=== PATIENT | female | born 1940 | race Caucasian/White ===

== ENCOUNTER 2023-09-21 16:52 | Emergency (ER) | payer OTHER, SELFPAY ==
[2023-09-21 16:53] VITALS: BP 144/77
[2023-09-21 18:04] VITALS: BMI 23.5
[2023-09-21 18:09] VITALS: BP 136/98
[2023-09-21 18:37] LABS: NT-proBNP 1950 pg/ml
[2023-09-21 18:52] LABS: ALT (SGPT) 13 U/L (0-35); AST (SGOT) 25 U/L (14-36); Albumin 3.5 g/dl (3.5-5.0); Alkaline Phosphatase 71 U/L (38-126); Blood Urea Nitrogen 21 mg/dl (7-17); Calcium 9.1 mg/dl (8.4-10.2); Carbon Dioxide 24 mmol/L (22-30); Chloride 111 mmol/L (98-107); Estimated Creatinine Clearance 44 ml/min; Glucose 98 mg/dl (70-99); Potassium 4.1 mmol/L (3.5-5.1); Sodium 138 mmol/L (135-145); Total Bilirubin 0.4 mg/dl (0.2-1.3); Total Protein 5.5 g/dl (6.3-8.2); eGFR > 60.00
[2023-09-21 18:53] LABS: % Basophils 0.7 % (0-2); % Eosinophils 4.1 % (0-6); % Immature Granulocytes 0.3 % (0-0.5); % Lymphocytes 16.5 % (20.5-51.1); % Monocytes 13.6 % (1.7-9.3); % Neutrophils 64.8 % (42.2-75.2); Absolute Eosinophils 0.3 10^3/uL (0-0.7); Absolute Monocytes 0.8 10^3/uL (0.1-0.6); Hematocrit 31.9 % (37.0-47.0); Hemoglobin 9.9 g/dL (12.0-16.0); Mean Corpuscular Hgb 27.5 pg (27.0-31.0); Mean Corpuscular Volume 88.6 fL (81.0-99.0); Mean Platelet Volume 10.6 fL (7.4-10.4); Nucleated Red Blood Cells % 0 %; Platelet Count 160 10^3/uL (130-400); Red Cell Dist. Width 15.7 % (11.5-14.5); White Blood Cell Count 6.1 10^3/uL (4.8-10.8)
--- NOTE | 2023-09-21 20:39 | ED.GENMED ---
History of Present Illness
General
Chief Complaint: Nose Bleed
Source: patient
Exam Limitations: none
Time Seen by Provider: 09/21/23 18:03
Nursing documentation reviewed up to this point in time: agreed with
Travel History
Have you had any contact with someone who has COVID-19?: No
Do you have any symptoms of coronavirus? Fever > 100 degrees, chills, cough, shortness of breath, sore throat, loss of taste or smell, muscle aches, or headache?: No
History of Present Illness
History of Present Illness:
Patient to ED with complaint of spontaneous nose bleed. States she sat on toilet and bleeding started. On xarelto. Brought to ED by daughter for eval.
Past History
Past History
ED Past Medical History: Arrthythmia, GERD and HTN
Review of Systems
Review of Systems
Allergies reviewed?: Yes
All Other Systems: ROS reviewed and negative except as documented in HPI and ROS
Constitutional: Reports no symptoms
EENT: Reports other (right posterior nosebleed)
Respiratory: Reports no symptoms
Cardiac: Reports no symptoms
ABD/GI: Reports no symptoms
: Reports no symptoms
Musculoskeletal: Reports edema (BLE)
Skin: Reports no symptoms
Neurological: Reports no symptoms
Psychiatric: Reports no symptoms
Phy Exam
General Physical Exam
General Presentation: well appearing and no apparent distress
General age: appears stated age
General Skin: warm and dry
General Habitus: normal
ENT Exam
ENT Exam: EOMI, pharynx normal, neck supple, normocephalic, swallowing well and other (Right posterior nose bleed. Posterior packing applied. No further bleeding. WIll follow up with ENT this week.)
Cardiovascular Exam
Cardiovascular Exam: regular rate/rhythm
Pulmonary Exam
Pulmonary Exam: lungs clear and no respiratory distress
Musculoskeletal Exam
Musculoskeletal Exam: full ROM and edema (+2edema BLE)
Skin Exam
Skin Exam: normal color, warm/dry and no rash
Psychiatric Exam
Psychiatric Exam: normal mood/affect
Course
Orders/Labs/Results
Orders:
Orders
09/21/23 18:10
US Periph Venous LOWER Ext Jeff Urgent
Comment:
Reason For Exam: swelling, erythema
09/21/23 18:12
Complete Blood Count/With Diff Urgent
Comprehensive Metabolic Panel Urgent
NT-proBNP Urgent
Abnormal Lab Results
09/21/23
18:12
RBC 3.60 L 10^6/uL
(4.20-5.40)
Hgb 9.9 L g/dL
(12.0-16.0)
Hct 31.9 L %
(37.0-47.0)
MCHC 31.0 L g/dL
(33.0-37.0)
RDW 15.7 H %
(11.5-14.5)
MPV 10.6 H fL
(7.4-10.4)
Absolute Lymphs (auto) 1.0 L 10^3/uL
(1.2-3.4)
Absolute Monos (auto) 0.8 H 10^3/uL
(0.1-0.6)
Lymphocytes % 16.5 L %
(20.5-51.1)
Monocytes % 13.6 H %
(1.7-9.3)
Chloride 111 H mmol/L
(98-107)
BUN 21 H mg/dl
(7-17)
Total Protein 5.5 L g/dl
(6.3-8.2)
09/21/23 18:12
09/21/23 18:12
Vital Signs
Initial and Last Documented VS:
Initial Vital Signs
Temp Pulse Resp BP Pulse Ox
98.1 F 96 18 144/77 96
09/21/23 16:53 09/21/23 16:53 09/21/23 16:53 09/21/23 16:53 09/21/23 16:53
Last Documented Vital Signs
Temp Pulse Resp BP Pulse Ox
98.1 F 107 22 136/98 97
09/21/23 16:53 09/21/23 21:00 09/21/23 21:00 09/21/23 18:09 09/21/23 21:00
*Critical Care Note
Total Time (30-74mins, 75-104mins- exclusive of procedures): Not Applicable
Update Note
Update Note:
Patient with +2 edema BLE. Daughter states she spoke with patients die maker who recommended Lasix. Patient did not want to start. Agreeable now to 20mg trial. WIll take in AM. FOllow closely with her die maker. No SOB or cough.
ED Attending Note
-
Portions of this chart may have been created with voice recognition software.� Occasional wrong word or��sound alike� substitutions may have occurred due to the inherent limitations of voice recognition software.
Discharge Plan
Departure
Patient Disposition: Home (Routine Discharge)
Date of Disposition: 09/21/23
Time of Disposition: 20:39
Patient with high blood pressure during this ER visit?: No
Condition: Good
Covid-19: Not Applicable
Discharge Problem:
Epistaxis
Instructions: Swelling, Nosebleeds (DC)
Prescriptions:
New
furosemide [Lasix] 20 mg tablet
20 mg PO DAILY PRN (Reason: edema) Qty: 5 0RF
No Action
atorvastatin 10 MG tablet
10 mg PO DAILY
cholecalciferol (vitamin D3) [Vitamin D3] 1,000 UNIT capsule
1,000 unit PO DAILY
metoprolol succinate 50 MG tablet extended release 24 hr
50 mg PO DAILY 0RF
acetaminophen 500 MG tablet
1,000 mg PO Q6H
sennosides [senna] 1 TABLET tablet
2 tab PO BID 0RF
famotidine 20 MG tablet
20 mg PO HS 0RF
magnesium hydroxide 30 ML suspension
30 ml PO HS 0RF
Rx Instructions:
until BM
docusate sodium 100 MG capsule
100 mg PO BID 0RF
ergocalciferol (vitamin D2) 50,000 UNITS capsule
50,000 units PO WEEKLY 0RF
aspirin 325 MG tablet
325 mg PO DAILY Qty: 28 0RF
Rx Instructions:
Take daily x4 weeks for blood clot prevention
celecoxib 200 MG capsule
200 mg PO DAILY Qty: 14 0RF
Rx Instructions:
Take with food.
Do not take within 2 hours of Aspirin.
Referrals:
Dot Lozano MD [Family Provider] - Follow up in 2-3 days
Timothy Hoskins MD [Active] - Call in 1-3 days for appt
Activity Restrictions/Additional Instructions:
Follow up with ENT for removal of the nasal packing in 1-2 days.
Interventions
Interventions:
*Risk Screen - Suicide Last Done: 09/21/23 18:04
*General Assessment Last Done: 09/21/23 16:53
*Neglect/Abuse Screening Last Done: 09/21/23 18:04
ED- Fall Risk Assessment Last Done: 09/21/23 18:04
*ED COVID-19 Vaccine History Last Done: 09/21/23 16:53
*Nursing Disposition Last Done: 09/21/23 21:19
ED-EENT Assessment Last Done: 09/21/23 18:04
Discharge Date and Time
Discharge Date/Time: 09/21/23 21:20
Print Language: GERMAN
== END 2023-09-21 21:20 | disposition home or self-care (01) ==
LOC: EMR 16:52
PROVIDERS: Nurse Practitioner; EMERGENCY PHYSICIAN Emergency Medicine; FAMILY PHYSICIAN Family Medicine
DX: R04.0 Epistaxis (principal); K21.9 Gastro-esophageal reflux disease without esophagitis; I10 Essential (primary) hypertension
CPT/HCPCS: 99284; 80053; 83880; 85025; 93970

== ENCOUNTER 2023-12-05 16:51 | Inpatient (IN) | payer OTHER, SELFPAY ==
[2023-12-05] VITALS (9 sets, daily range): BP systolic 98–128; BP diastolic 48–78; BMI 23.9
--- NOTE | 2023-12-05 13:44 | ED.GENMED ---
History of Present Illness
General
Chief Complaint: Fall
Source: patient and family
Time Seen by Provider: 12/05/23 13:23
History of Present Illness
History of Present Illness:
83yoF with a history of atrial fibrillation on Xarelto, hypertension, hyperlipidemia, and recent right hip fracture s/p repair in July 2023 in [place] presenting via EMS for evaluation after a fall. Patient is confused and is unsure when the
fall occurred. She states that her daughter was able to catch her when she fall but when I called daughter to confirm this, daughter states that patient was alone. Patient's friend came to visit her and staff had to break down her door and she was
found on the floor. Patient currently lives in independent living at [facility]. She currently complains of right heel pain. She has no other complaints currently. Daughter states that patient was confused and urinating frequently last
week. She was seen at urgent care 2 days ago and diagnosed with a UTI and started on antibiotics. Daughter believes the antibiotic was Bactrim.
Past History
Past History
ED Past Medical History: Arrthythmia, GERD and HTN
Phy Exam
General Physical Exam
General Presentation: no apparent distress
General Skin: warm and dry
General Habitus: elderly
General Mental: confused
General Hydration: dry mucous membranes
ENT Exam
ENT Exam: normocephalic
Additional ENT: No external signs of head trauma. No reproducible tenderness in C spine.
Eye Exam
Eye Exam: PERRL
Cardiovascular Exam
Cardiovascular Exam: regular rate/rhythm, no edema and no murmur
Pulmonary Exam
Pulmonary Exam: lungs clear, no respiratory distress and no crackles
Gastrointestinal Exam
Gastrointestinal Exam: non tender, soft and non distended
Neurological Exam
Neurological Exam: other (Oriented to person, place, and time. Unable to provide details regarding fall and is tangential during exam.)
Musculoskeletal Exam
Musculoskeletal Exam: other (Does not attempt ROM of R hip or knee. No obvious deformity. No skin changes. Able to range R foot and ankle. 2+ DP pulse and sensation intact. )
Skin Exam
Skin Exam: normal color, warm/dry and other (Abrasions noted to R upper back)
Course
Orders/Labs/Results
Orders:
Orders
12/05/23 13:51
Electrocardiogram (*1) Urgent
Reason for Study: Other
Other Reason for Exam: fall
CT Cervical Spine W/o Iv Contr Urgent
Comment:
Reason For Exam: Fall, AMS
CT Head W/o Iv Contrast Urgent
Comment:
Reason For Exam: Fall, unknown head strike
EKG- Treatment ONCE
Urinalysis Reflex To Culture Urgent
CR Foot - Right Min 3 Views Urgent
Comment:
Reason For Exam: Fall, R leg pain
CR Knee- Right 4 Or More View* Urgent
Comment:
Reason For Exam: Fall, R leg pain
Femur, Right 2 View [CR Femur - Right Min 2 Vw] Urgent
Comment:
Reason For Exam: fall, R leg pain
Hip, Right 2-3 Views [CR Hip - RT w/wo Pel 2-3 Vw*] Urgent
Comment:
Reason For Exam: fall, R leg pain
Include a pelvis x-ray?: Yes
12/05/23 13:52
CR Chest - 2 Views Urgent
Comment:
Reason For Exam: Fall
12/05/23 13:55
0.9% Sodium Chloride 250 ml [Nss] 250 ml IV BOLUS
12/05/23 14:01
Complete Blood Count/With Diff Urgent
Comprehensive Metabolic Panel Urgent
Total CK [Creatine Phosphokinase] Urgent
Troponin I Urgent
12/05/23 Dinner
Regular
At Your Request: Limited, Braille Transcriber Required
12/05/23 16:37
Admit/Transfer Patient As Directed
Co-Sign Provider:
Level of Care: Inpatient admission
Assign to:: Telemetry
Physician / Group: Hospitalist
Diagnosis: Right hip fracture
Reason for Telemetry: Chest Pain syndromes
Date to Stop Telemetry: 12/07/23
Time to Stop Telemetry: 11:00
Reason for Hospitalization: Right hip fracture with ambulatory dysfunction
Expected length of stay greater than two midnights?: Yes
ELOS- Estimated Length of Stay in days: 2
I certify the patient meets the requirements for IP care: Yes
PRN Pain Medication Management As Directed
May give lesser potent ordered pain med per pt: Yes
preference::
Protocol:: Medication orders for pain may be administered in a
manner that supports deferring to patient preference
when the pt is:
- Requesting an ordered lesser potent pain medication.
Least to most potent pain medications are defined
as: acetaminophen < NSAID < tramadol < opioids
(morphine, oxycodone, hydromorphone).
- Requesting a lesser dose of the same medication IF
ORDERED.
- Requesting a less intrusive route of administration
if both routes are prescribed by the provider (PO <
IV).
12/05/23 16:38
Code Status As Directed
Resuscitation Status: Full Code
12/05/23 18:00
Metoprolol Xl [Toprol Xl] 25 mg PO QPM
12/05/23 18:32
0.9% Sodium Chloride 250 ml [Nss] 250 ml IV BOLUS
Enoxaparin Sodium [Lovenox] 40 mg SC QPM
Magnesium Hydroxide [Milk of Magnesia] 30 ml PO DAILYPRN PRN
Oxycodone [Roxicodone] 5 mg PO Q4HPRN PRN
Tamsulosin [Flomax] 0.4 mg PO DAILYPRN PRN
12/05/23 18:32
Admit Patient As Directed
Co-Sign Provider:
Level of Care: Inpatient admission
Assign to:: Medical/Surgical
Physician / Group: Hospitalist
Diagnosis: Hip fracture
Reason for Hospitalization: hip fracture, ambulatory dysfunction
Expected length of stay greater than two midnights?: Yes
ELOS- Estimated Length of Stay in days: 2
I certify the patient meets the requirements for IP care: Yes
ORTHOPEDIC CONSULT Routine
Consulting Provider: Emmett Dale
Was physician already notified: Yes
Reason for consult: Right hip fracture
Activity As Directed
Activity Level: With Assistance
Bladder Scan As Directed
Follow Bladder Retention/Intermittent Cath Algorithm?: Yes
PRN if no void in __ hours: 6
Comment: if not voiding 6 hrs upon arrival to floor, bladder scan & follow algorithm
Intake/ Output As Directed
Frequency: Per unit guidelines
Pneumatic Compression Sleeves As Directed
Type: Knee high
Straight Cath As Directed
Frequency: Per Retention Algorithm
Additional Instructions: straight cath as needed per acute urinary retention algorithm for 24 hrs
Additional Instructions: for bladder scan greater than 400 mL
Vital Signs As Directed
Frequency: Per unit guidelines
Pt Eval And Treat Routine
Activity Level: With Assistance
DX Deep Vein Thrombosis Video Routine
12/05/23 20:00
Acetaminophen [Tylenol] 650 mg PO Q4HWA
Docusate Sodium [Colace] 100 mg PO BID
Sennosides [Senokot] 17.2 mg PO BID
12/05/23 22:00
Troponin I Q8H
Famotidine [Pepcid] 20 mg PO HS
12/06/23 06:00
Basic Metabolic Panel IN AM
Complete Blood Count/No Diff IN AM
Creatine Phosphokinase IN AM
Troponin I Q8H
12/06/23 08:00
Atorvastatin [Lipitor] 10 mg PO DAILY
Cholecalciferol (Vitamin D3) [VITAMIN D3 (cholecalciferol)] 25 mcg PO DAILY
12/07/23 11:00
DC Protocol for Telemetry ONCE
Abnormal Lab Results
12/05/23
14:01
MCV 78.6 L fL
(81.0-99.0)
MCH 26.1 L pg
(27.0-31.0)
RDW 15.3 H %
(11.5-14.5)
MPV 11.0 H fL
(7.4-10.4)
Absolute Neuts (auto) 8.5 H 10^3/uL
(1.4-6.5)
Absolute Lymphs (auto) 0.6 L 10^3/uL
(1.2-3.4)
Absolute Monos (auto) 1.0 H 10^3/uL
(0.1-0.6)
Neutrophils % 84.2 H %
(42.2-75.2)
Lymphocytes % 5.4 L %
(20.5-51.1)
Monocytes % 9.8 H %
(1.7-9.3)
BUN 32 H mg/dl
(7-17)
Glucose 114 H mg/dl
(70-99)
AST 39 H U/L
(14-36)
Creatine Kinase 605 H U/L
(30-135)
Troponin I 0.043 H* ng/ml
12/05/23 14:01
12/05/23 14:01
Vital Signs
Initial and Last Documented VS:
Initial Vital Signs
Temp Pulse Resp BP Pulse Ox
98 F 77 16 124/78 96
12/05/23 13:03 12/05/23 13:03 12/05/23 13:03 12/05/23 13:03 12/05/23 13:03
Last Documented Vital Signs
Temp Pulse Resp BP Pulse Ox
97.5 F 114 18 121/76 96
12/05/23 18:23 12/05/23 18:29 12/05/23 13:51 12/05/23 18:29 12/05/23 18:23
MDM/Problems Addressed
Differential Diagnosis Includes:
83yoF here after an unwitnessed fall. Unclear details regarding fall. Patient currently on abx for a UTI. Her only complaint is R heel pain. Hx of recent R hip fracture earlier this year. She is tangential during exam. She states that someone caught
her during the fall although daughter states she was alone during the fall. Mucous membranes are dry. She is afebrile and hemodynamically stable. Differential diagnosis includes but is not limited to: mechanical fall, syncope, fracture, UTI, KENDRA,
dehydration
Initial ED plan: Check cardiac labs, CK, EKG, CXR, R hip/femur/knee/foot x-rays, CT head, and CT cervical spine. IV fluid bolus.
*Critical Care Note
Total Time (30-74mins, 75-104mins- exclusive of procedures): Not Applicable
Update Note
Update Note:
Labs reveal a troponin of 0.043. No ischemic changes on EKG. CK is 605. Right hip x-rays show an age indeterminate intertrochanteric fracture with a fractured screw. No other traumatic injuries on imaging. Case was discussed with orthopedics,
Suyapa, who recommended admission to medicine [facility] with plan for surgery next week. She was admitted to the internal medicine team for further management.
ED Attending Note
-
Portions of this chart may have been created with voice recognition software.� Occasional wrong word or��sound alike� substitutions may have occurred due to the inherent limitations of voice recognition software.
Discharge Plan
Departure
Patient Disposition: Admit
Date of Disposition: 12/05/23
Time of Disposition: 16:01
Presentation/result/management discussed w/ accepting MD/DO: Hospitalist
Discharge Problem:
Periprosthetic fracture of hip, Elevated troponin, Altered mental status
Interventions
Interventions:
*Risk Screen - Suicide Last Done: 12/05/23 14:08
*General Assessment Last Done: 12/05/23 14:08
*Neglect/Abuse Screening Last Done: 12/05/23 14:08
ED- Fall Risk Assessment Last Done: 12/05/23 14:08
*ED COVID-19 Vaccine History Last Done: 12/05/23 14:08
*Nursing Disposition Last Done: 12/05/23 18:10
ED-Musculoskeletal Assessment Last Done: 12/05/23 13:34
ED- Neurological Assessment Last Done: 12/05/23 15:24
ED-Skin Assessment Last Done: 12/05/23 13:34
Discharge Date and Time
Discharge Date/Time: 12/05/23 18:10
[2023-12-05] MEDS: NSS 250 IV ×2 (14:04→18:40)
[2023-12-05 14:20] LABS: % Basophils 0.3 % (0-2); % Eosinophils 0.1 % (0-6); % Immature Granulocytes 0.2 % (0-0.5); % Lymphocytes 5.4 % (20.5-51.1); % Monocytes 9.8 % (1.7-9.3); % Neutrophils 84.2 % (42.2-75.2); Absolute Lymphocytes 0.6 10^3/uL (1.2-3.4); Absolute Neutrophils 8.5 10^3/uL (1.4-6.5); Hematocrit 38.9 % (37.0-47.0); Hemoglobin 12.9 g/dL (12.0-16.0); Mean Corp Hgb Conc. 33.2 g/dL (33.0-37.0); Mean Corpuscular Hgb 26.1 pg (27.0-31.0); Mean Corpuscular Volume 78.6 fL (81.0-99.0); Nucleated Red Blood Cells % 0 %; Platelet Count 151 10^3/uL (130-400); Red Blood Cell Count 4.95 10^6/uL (4.20-5.40); Red Cell Dist. Width 15.3 % (11.5-14.5); White Blood Cell Count 10.1 10^3/uL (4.8-10.8)
[2023-12-05 14:47] LABS: Troponin I 0.043 ng/ml
[2023-12-05 15:03] LABS: ALT (SGPT) 21 U/L (0-35); AST (SGOT) 39 U/L (14-36); Albumin 4.2 g/dl (3.5-5.0); Alkaline Phosphatase 101 U/L (38-126); Blood Urea Nitrogen 32 mg/dl (7-17); Calcium 9.8 mg/dl (8.4-10.2); Carbon Dioxide 25 mmol/L (22-30); Chloride 106 mmol/L (98-107); Glucose 114 mg/dl (70-99); Potassium 4.5 mmol/L (3.5-5.1); Sodium 140 mmol/L (135-145); Total Bilirubin 1.2 mg/dl (0.2-1.3); Total Protein 6.5 g/dl (6.3-8.2); eGFR > 60.00
--- NOTE | 2023-12-05 15:11 | PHANOTE ---
Addendum entered by Shelia Michaud 12/05/23 17:38:
Family arrived with pt's home medications. Home med list updated.
Addendum entered by Shelia Michaud 12/05/23 16:54:
Family has not arrived, called pt's PCP at [phone], PCP office able to verify pt's medications that they have on file. Furosemide filled 10/31/23 for 10 day supply.
Original Note:
med rc note- tried to speak to patient about med list but she said to call daughter. kesha said she will be here in an hour
[2023-12-05 15:33] LABS: Creatine Phosphokinase 605 U/L (30-135)
--- NOTE | 2023-12-05 16:08 | HPS.HSE ---
Family Physician
-
Family Physician: Dot Lozano
Chief Complaint
-
Fall and Hip Fracture
History of Present Illness
This is am 83-year-old female with past medical history of atrial fibrillation on anticoagulation, hypertension hyperlipidemia who presents to the hospital following a fall and being found down at home.
Patient recalls having a mechanical fall where she slipped and fell. She remembers not hitting her head. She is unclear exactly how she fell or how long she was on the floor for. She said that she was able to get up by herself. Her friend went
to visit her and she wouldn't open the door. The staff at her independent living broke down the door and found her on the ground. She denies having any loss of consciousness. She denies having chest pain, palpitations lightheadedness or dizziness.
She does not recall the last time she had any p.o. intake. She stated that she did use her medications regularly and last use was slightly yesterday.
Intermittent manage the patient was hemodynamically stable and afebrile and in no acute distress. Blood pressure was 120/70 pulse of 90 with respiratory rate of 18 and 97% saturation on room air. ECG shows atrial fibrillation at a rate of 107 but
is otherwise unremarkable. CT of the head shows no acute intracranial abnormalities. CT of the C-spine shows no fracture, subluxation but chronic spondylitic changes. X-rays of the lower extremities show age-indeterminate, internally fixated
intertrochanteric fracture of the RIGHT. There are 2 screws within the femoral neck, one which is fractured. The other screw appears to transgress the superior cortex of the right femoral head and it is likely positioned within the joint space.
Longstem/constrained right knee prosthesis with no evidence for periprosthetic complication
Left medial 42.0.43 CK of 65. BUN/creatinine are within acceptable range of 32 and 0.8. She did not have a white count, Hgb stable and plt was 151.
Case evaluated by orthopedics and plan for surgery early next week.
Medical History
Past Medical History
Past Medical History: Reports Arrhythmia, HTN and Hypercholesterolemia
Past Surgical History: Reports Orthopedic
Social History
Tobacco: Non-smoker
Alcohol: None
Drug: None
Personal: Single
Living: Assisted Living
Employment: Retired
Family History
Family History: Not pertinent
Allergies / Home Medications
Allergies reflects when Allergies were last updated in [employer].
Home Medications with original date entered in [employer]
Allergy/Medication List:
Allergies
Allergy/AdvReac Type Severity Reaction Status Date / Time
dextromethorphan Allergy Skin Verified 12/05/23 13:03
[From NyQuil] peeling as
per pt
doxylamine [From NyQuil] Allergy Skin Verified 12/05/23 13:03
peeling as
per pt
Penicillins Allergy A CHILD Verified 12/05/23 13:03
pseudoephedrine [From NyQuil] Allergy Skin Verified 12/05/23 13:03
peeling as
per pt
Home Medications
atorvastatin 10 mg tablet 10 mg PO DAILY High cholesterol 08/07/20
cholecalciferol (vitamin D3) 25 mcg (1,000 unit) capsule (Vitamin D3) 1,000 unit PO DAILY Supplement 08/07/20
acetaminophen 500 mg tablet 1,000 mg PO Q6H Pain 10/10/20
ergocalciferol (vitamin D2) 1,250 mcg (50,000 unit) capsule 50,000 units PO WEEKLY 10/10/20
famotidine 20 mg tablet 20 mg PO HS 10/10/20
aspirin 325 mg tablet 325 mg PO DAILY #28 tabs 10/11/20
furosemide 40 mg tablet 40 mg PO USEASDIRECTD 12/05/23
metoprolol succinate 25 mg tablet,extended release 24 hr 25 mg PO QPM 12/05/23
nitrofurantoin monohydrate/macrocrystals 100 mg capsule 100 mg PO BID 12/05/23
rivaroxaban 15 mg tablet (Xarelto) 15 mg PO QPM 12/05/23
Review of Systems
-
History Source: Patient
Constitutional: Reports No Symptoms
EENT: Reports No Symptoms
Respiratory: Reports No Symptoms
Cardiac: Reports No Symptoms
: Reports No Symptoms
Musculoskeletal: Reports Joint Pain
Skin: Reports No Symptoms
Neurological: Reports No Symptoms
Endocrine: Reports No Symptoms
Hematologic/Lymphatic: Reports No Symptoms
Psych: Reports No Symptoms
Physical Exam
Vital Signs
Vital Signs
Temp Pulse Resp BP Pulse Ox
98 F 94 18 120/70 97
12/05/23 13:03 12/05/23 16:00 12/05/23 13:51 12/05/23 16:00 12/05/23 15:58
Physical Exam
General: Pain
HEENT: NormoCephalic, Anicteric, Atraumatic, PERRLA and Neck Nontender
Respiratory: Clear
Cardiac: S1/S2, Irregular Rhythm and Peripheral Edema
Breast: Deferred by me
GI: Soft, Non Tender, Non Distended and Normal Bowel Sounds
Rectal: Deferred by Provider
Genito-urinary: Deferred by me
Musculoskeletal: No Clubbing, No Cyanosis, Edema, Left Lower Extremity, Edema, Right Lower Extremity and Other (limb length asymmetry. )
Skin: Warm
Neuro: Awake and AO x 3
Psych: Calm
Laboratory Results
-
12/05/23 14:01
12/05/23 14:01
Laboratory Results
Total Bilirubin 1.2 mg/dl (0.2-1.3) 12/05/23 14:01
AST 39 U/L (14-36) H 12/05/23 14:01
ALT 21 U/L (0-35) 12/05/23 14:01
Alkaline Phosphatase 101 U/L (38-126) 12/05/23 14:01
Troponin I 0.043 ng/ml H* 12/05/23 14:01
Data Reviewed
-
Diagnostic Radiology: Image Personally Visualized and interpreted and Report Reviewed by me
CT Scan: Report Reviewed by me
Medical Tests (Nuc Med, Echo, EKG etc): Image Personally Visualized and interpreted
Lab Data: Labs Reviewed by me
Impression/Plan
-
IMPRESSION:
PLAN:
1. Right Hip Fracture - internally fixated intertrochanteric fracture of the RIGHT. Pain with reduced ROM. Plan for OR early next week.
- admit to telemetry
- hold anticoagulation
- pain control
- DVT PPX lovenox sq
- PT/OT
- orthopedic consultation
- advance diet
2. AFIB - Permanent AFIB. Rate is appropriate.
- hold ac per ortho
- continue metoprolol
3. Trop elevation - Non-ischemic myocardial injury versus mild rhabdo. No chest pain.
- trend troponin, aspirin 324 x 1
4. CK elevation - Unclear how long she was on the ground but has mild rhabdo w/o KENDRA.
- hold lasix for now
- s/p 500 ml bolus,
- trend ck, gentle hydration
DVT PPX - lovenox sq
Full Code
[2023-12-05] MEDS: TOPROL XL 25 MG PO (18:29)
[2023-12-05] MEDS: LOVENOX 40 MG SC (18:40)
[2023-12-05] MEDS: TYLENOL 650 MG PO ×2 (20:40→23:42)
[2023-12-05] MEDS: SENOKOT 17.2 MG PO (20:40)
[2023-12-05] MEDS: COLACE 100 MG PO (20:40)
[2023-12-05] MEDS: PEPCID 20 MG PO (20:42)
[2023-12-05 22:32] LABS: Troponin I 0.044 ng/ml
[2023-12-06] VITALS (7 sets, daily range): BP systolic 115–138; BP diastolic 66–86
[2023-12-06] MEDS: TYLENOL PO ×3 (04:53→21:00)
[2023-12-06 07:50] LABS: Troponin I 0.031 ng/ml
[2023-12-06 08:01] LABS: Hematocrit 33.6 % (37.0-47.0); Hemoglobin 11.3 g/dL (12.0-16.0); Mean Corp Hgb Conc. 33.6 g/dL (33.0-37.0); Mean Corpuscular Hgb 26.7 pg (27.0-31.0); Mean Corpuscular Volume 79.4 fL (81.0-99.0); Platelet Count 115 10^3/uL (130-400); Red Blood Cell Count 4.23 10^6/uL (4.20-5.40); Red Cell Dist. Width 15.4 % (11.5-14.5)
[2023-12-06 08:15] LABS: Blood Urea Nitrogen 25 mg/dl (7-17); Carbon Dioxide 22 mmol/L (22-30); Chloride 109 mmol/L (98-107); Creatine Phosphokinase 479 U/L (30-135); Estimated Creatinine Clearance 51 ml/min; Glucose 84 mg/dl (70-99); Sodium 138 mmol/L (135-145); eGFR > 60.00
[2023-12-06 08:16] LABS: Potassium 3.8 mmol/L (3.5-5.1)
[2023-12-06] MEDS: TYLENOL 650 MG PO ×2 (11:58→17:29)
[2023-12-06] MEDS: LIPITOR 10 MG PO (11:59)
[2023-12-06] MEDS: VITAMIN D3 (cholecalciferol) 25 MCG PO (11:59)
[2023-12-06] MEDS: COLACE 100 MG PO (11:59)
[2023-12-06] MEDS: SENOKOT 17.2 MG PO (11:59)
[2023-12-06 13:14] LABS: Urine Albumin Trace (Neg - Trace); Urine Bilirubin Negative (Negative); Urine Character Clear (Clear); Urine Color Yellow; Urine Glucose Negative (Negative); Urine Ketone 1+ (Negative); Urine Leukocyte Negative (Negative); Urine Nitrite Negative (Negative); Urine Occult Blood Negative (Negative); Urine Specific Gravity 1.015 (<1.030); Urine Urobilinogen Negative (Neg - 1+)
--- NOTE | 2023-12-06 13:27 | CM ---
Initial Assessment completed with daughter/POA/Primary Contact, Shauna Garcia via phone # [phone]
Daughter reported that patient fell in July 2023 while she was in [place]; had hip surgery followed by a short term penitentiary stay
Patient had a mechanical fall yesterday, 12/05/23
chart reviewed: Right Femoral Neck fracture; surgery planned for next week
Pharmacy verified: [facility] [address]
Daughter reported that mother lives alone @ [facility]
PLOF: per daughter, patient was independent w/ personal care, cleaning/laundry services provided; independent with ambulation; prior to July she was driving; going to outpatient PT @ [facility] in [place]
SNF/Home Health utilization history: [facility] @ [facility] after joint surgery 2020; Home Health services from [facility] in August 2023
Daughter reported that she and her sister do not think patient can return to independent living facility
If SNF is recommended after surgery, [facility]
Transportation @ discharge to be determined
Plan: disposition at discharge to be determined after surgery
--- NOTE | 2023-12-06 13:43 | W.PN.HOSP.TC ---
Today's Communication/Plan
-
Echo on Friday
Start IV fluids
Bedrest till surgery
Await orthopedic input
Assessment / Plan
Assessment / Plan
1. Right Hip Fracture - internally fixated intertrochanteric fracture of the RIGHT. Pain with reduced ROM.
- admit to telemetry
- hold anticoagulation -xarelto washout
- pain control
- PT/OT post op.
- orthopedic consultation
- advance diet
- timing of surgery pending
- Denies prior history of HF, DM, Renal problems or prior history of any CV events .EKG with NSR with HR of 107. No acute or ST -Tt wave changes. Pt with RCRI 0.9% class I risk of cardiovascular risk factor . Patient had mild bump in troponin
likely secondary to mild rhabdomyolysis. Will check echo to complete workup.
2. AFIB - Permanent AFIB. Rate is appropriate.
- hold ac per ortho
- continue metoprolol
3. Trop elevation - Non-ischemic myocardial injury versus mild rhabdo. No chest pain.
- trend troponin, aspirin 324 x 1
4. CK elevation - Unclear how long she was on the ground but has mild rhabdo w/o KENDRA.
- hold lasix for now
- s/p 500 ml bolus,
- trend ck, continue with IV fluid
DVT PPX -SCDs preop. Can restart chemical prophylaxis if okay per orthopedic.
Full Code
Anticipated Discharge: > 48 hours
Subjective/Interval History
-
Date of Service: December 06, 2023
Patient stated at home she slipped and fell
Denies passing out
Denies any chest pain or palpitation prior to the fall
Denies any chest pain currently.
Objective Data
-
Labs:
Laboratory Results
12/06/23
06:14
WBC 6.0
Hgb 11.3 L
Hct 33.6 L
Plt Count 115 L D
Sodium 138
Potassium 3.8
Chloride 109 H
Carbon Dioxide 22
BUN 25 H
Creatinine 0.7
Glucose 84
Calcium 9.0
Vital Signs:
Vital Signs
Temp Pulse Resp BP Pulse Ox
97.3 F 89 17 122/66 99
12/06/23 07:00 12/06/23 07:00 12/06/23 07:00 12/06/23 07:00 12/06/23 07:00
I&O
12/05/23 12/06/23 12/07/23
06:59 06:59 06:59
Intake Total 250 / 250
Output Total 400 / 400 1000 / 1000
Balance -150 / -150 -1000 / -1000
Physical Exam
-
General: Well Developed and No Apparent Distress
HEENT: Normocephalic, Atraumatic and Moist Mucous Membranes
Respiratory: Clear to Auscultation
Cardiac: Regular Rhythm and S1/S2; Negative Murmur, Rub or Gallop
GI: Soft, Nontender, Nondistended and Normal Bowel Sounds; Negative Organomegaly
Rectal: Deferred by Provider
Musculoskeletal: No Clubbing, No Cyanosis and No Edema
Skin: Negative Rash
Neuro: Awake, No Motor Deficits and Nonfocal/Grossly Intact
Psych: Calm
Data Reviewed
-
Total Time Spent with Patient (in minutes): 55
[2023-12-06] MEDS: NSS 1000 IV (15:19)
[2023-12-06] MEDS: TOPROL XL 25 MG PO (17:28)
[2023-12-07] MEDS: PEPCID 20 MG PO ×2 (00:50→22:01)
[2023-12-07] MEDS: TYLENOL 650 MG PO ×5 (00:50→21:56)
[2023-12-07] MEDS: COLACE 100 MG PO ×3 (00:51→21:57)
[2023-12-07] MEDS: SENOKOT 17.2 MG PO ×3 (00:51→21:57)
[2023-12-07 04:07] VITALS: BP 130/97
[2023-12-07] MEDS: TYLENOL PO (04:25)
[2023-12-07 07:58] VITALS: BP 135/88
--- NOTE | 2023-12-07 08:05 | W.PN.UPDATE ---
Update Note
Progress Note Update
Ms. Bryant is resting comfortably in bed this morning. She is more alert than on our visit yesterday. Patient was seen and evaluated by myself and Dr. Dale yesterday AM, note from Dr. Dale is pending. She denies any pain in the hip at
present. She has no questions or concerns at this time.
Directed exam of the right hip reveals no obvious erythema, ecchymosis, edema or lesions. No tenderness to palpation about the hip. Pain elicited with passive ROM of the hip. Thigh soft and compressible. Calf soft and nontender. Patient able to
wiggle toes, plantar and dorsiflex ankle. Neurovascularly intact distally. VSS.
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
--Tentative plan to proceed with OR Friday (12/10/2023) for conversion right total hip arthroplasty after Xarelto washout. This will be under the direction of Dr. Dale. Dr. Dale spoke with patient's daughter yesterday over the phone, and she
provided consent to proceed with surgery. Surgical and blood consent are in patient chart.
--NWB to RLE until surgery.
--NPO after midnight 12/09.
--Last dose of Lovenox 12/08 PM.
--Pain controlled with current regimen. Ice prn for pain and edema control.
--Antibiotics and irrigation ordered to OR.
--Will need T+S within 72 hours of surgery.
--Orthopedics will continue to follow along.
[2023-12-07] MEDS: LIPITOR 10 MG PO (09:30)
[2023-12-07] MEDS: VITAMIN D3 (cholecalciferol) 25 MCG PO (09:30)
--- NOTE | 2023-12-07 10:15 | W.PN.HOSP.TC ---
Addendum entered and electronically signed by Tyrone Drew MD 12/07/23 11:35:
Discussed and updated daughter over the phone in details.
Original Note:
Today's Communication/Plan
-
OR wed
lovenox
bedrest till surgery
Assessment / Plan
Assessment / Plan
1. Right Hip Fracture - internally fixated intertrochanteric fracture of the RIGHT. Pain with reduced ROM.
- hold anticoagulation -xarelto washout
- pain control
- PT/OT post op.
- orthopedic consultation
- advance diet
- surgery on Friday. Okay for lovenox per ortho. Last dose 12/08 pm.
- Patient had mild bump in troponin likely secondary to mild rhabdomyolysis. Will check echo to complete workup.
2. AFIB - Permanent AFIB. Rate is appropriate.
- hold ac per ortho
- continue metoprolol
3. Trop elevation - Non-ischemic myocardial injury versus mild rhabdo. No chest pain.
-downtrended.
4. CK elevation - Unclear how long she was on the ground but has mild rhabdo w/o KENDRA.
- hold lasix for now
- s/p 500 ml bolus,
- encourage po intake.
HLD-Cont statin
DVT PPX -okay for lovenox per ortho.
Full Code
Anticipated Discharge: > 48 hours
Subjective/Interval History
-
Date of Service: December 07, 2023
states R hip soreness
Objective Data
-
Vital Signs:
Vital Signs
Temp Pulse Resp BP Pulse Ox
97.5 F 87 16 135/88 97
12/07/23 07:58 12/07/23 07:58 12/07/23 07:58 12/07/23 07:58 12/07/23 07:58
I&O
12/06/23 12/07/23 12/08/23
06:59 06:59 06:59
Intake Total 250 / 250 400 / 400 900 / 900
Output Total 400 / 400 1000 / 1000 375 / 375
Balance -150 / -150 -600 / -600 525 / 525
[2023-12-07 11:14] VITALS: BP 145/83
[2023-12-07 16:01] VITALS: BP 138/79
[2023-12-07] MEDS: LOVENOX 40 MG SC (18:16)
[2023-12-07] MEDS: TOPROL XL 25 MG PO (18:34)
[2023-12-07 19:40] VITALS: BP 114/76
[2023-12-07 23:35] VITALS: BP 130/68
[2023-12-08] MEDS: TYLENOL PO ×2 (01:03→04:58)
[2023-12-08 03:35] VITALS: BP 142/95
[2023-12-08 06:10] LABS: % Basophils 0.3 % (0-2); % Eosinophils 3.1 % (0-6); % Immature Granulocytes 0.3 % (0-0.5); % Lymphocytes 17.3 % (20.5-51.1); % Monocytes 12.5 % (1.7-9.3); % Neutrophils 66.5 % (42.2-75.2); Absolute Eosinophils 0.2 10^3/uL (0-0.7); Absolute Monocytes 0.7 10^3/uL (0.1-0.6); Absolute Neutrophils 3.9 10^3/uL (1.4-6.5); Hematocrit 34.7 % (37.0-47.0); Hemoglobin 11.4 g/dL (12.0-16.0); Mean Corp Hgb Conc. 32.9 g/dL (33.0-37.0); Mean Corpuscular Hgb 26.5 pg (27.0-31.0); Mean Corpuscular Volume 80.5 fL (81.0-99.0); Mean Platelet Volume 10.1 fL (7.4-10.4); Nucleated Red Blood Cells % 0 %; Platelet Count 137 10^3/uL (130-400); Red Blood Cell Count 4.31 10^6/uL (4.20-5.40); Red Cell Dist. Width 15.2 % (11.5-14.5); White Blood Cell Count 5.8 10^3/uL (4.8-10.8)
[2023-12-08 06:34] LABS: Blood Urea Nitrogen 17 mg/dl (7-17); Carbon Dioxide 28 mmol/L (22-30); Chloride 108 mmol/L (98-107); Estimated Creatinine Clearance 51 ml/min; Glucose 90 mg/dl (70-99); Potassium 3.9 mmol/L (3.5-5.1); Sodium 138 mmol/L (135-145); Total CK 91 U/L (30-135); eGFR > 60.00
[2023-12-08 07:00] VITALS: BP 127/73
[2023-12-08] MEDS: TYLENOL 650 MG PO ×4 (07:39→20:19)
[2023-12-08] MEDS: LIPITOR 10 MG PO (07:39)
[2023-12-08] MEDS: COLACE 100 MG PO ×2 (07:39→20:20)
[2023-12-08] MEDS: SENOKOT 17.2 MG PO ×2 (07:39→20:19)
[2023-12-08 07:40] VITALS: BMI 23.9
[2023-12-08] MEDS: VITAMIN D3 (cholecalciferol) 25 MCG PO (07:40)
--- NOTE | 2023-12-08 08:30 | WOUNDNOTE ---
[facility] RN note: Patient seen for HAPU for R buttocks stage 2 pressure injury. Patient has a R lower gluteal fold linear stage 2 pressure injury suspect r/t her Denis catheter. Patient is on a Waffle air overlay. Heels off bed with pillow. Silicone
border foam changed. Patient incontinent of a smear of soft brown stool. Ligia care given. Patient turned to L semi side lying position with help from [facility]. Patient stated she lives alone in the [facility]. Her appetite is poor.
She is very thin. Skin on sacrum and heels intact. Protective foam changed on heels and sacral silicone border foam maintained. Air chair cushion given. Will update hospitalist and updated RN Sneha.
--- NOTE | 2023-12-08 08:37 | WOUNDNOTE ---
R GLUTEAL FOLD/UPPER POSTERIOR THIGH (thigh toward R side of photo)
--- NOTE | 2023-12-08 08:41 | WOUNDNOTE ---
R HIP (thigh toward top of photo)
--- NOTE | 2023-12-08 09:23 | W.PN.UPDATE ---
Update Note
Progress Note Update
Patient resting comfortably at the time of rounds. Did not respond to multiple attempts with verbal stimuli, therefore DND. Appreciate the primary team, continue treatment. 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
nail fixation. Plan for MAGNOLIA conversion to right ONI on Friday under the direction of Dr. Dale. PLEASE D/c Lovenox after Friday PM dose. Remain at bedrest for now. Surgical and blood consents have been signed and placed on the patient's
chart. She is NPO pMN on Friday. Pre-op ABX ordered. T&S complete. Spoke with the OR and confirmed instrumentation from [facility] will be available for MAGNOLIA. Will follow.
[2023-12-08 11:00] VITALS: BP 125/79
--- NOTE | 2023-12-08 12:07 | CM ---
CM reviewed chart- plan for OR Wed 12/09 for hip procedure
Call from [facility]- [facility]
Family has hired service to coordinate assisted living on [place]
Pt will benefit from post-op PT/OT evals
If SNF needed, she will require [employer] auth
Discharge Disposition- anticipate assisted living vs SNF
--- NOTE | 2023-12-08 13:09 | W.PN.HOSP.TC ---
Today's Communication/Plan
-
Xarelto wash out
recheck CPK, BMP, CBC tomorrow
Assessment / Plan
Assessment / Plan
1. Right Hip Fracture - internally fixated intertrochanteric fracture of the RIGHT. Pain with reduced ROM.
- hold anticoagulation -xarelto washout
- pain control
- PT/OT post op.
- orthopedic consultation appreciated
- advance diet
- surgery on Friday. Okay for lovenox per ortho. Last dose 12/08 pm.
- Patient had mild bump in troponin likely secondary to mild rhabdomyolysis.
2. AFIB - Permanent AFIB. Rate is appropriate.
- hold ac per ortho
- continue metoprolol
Echo: Normal LV size and function with no regional wall motion abnormalities.
LVEF is 55 to 60% by visual estimation.
Normal right ventricular size and function.
S/p MVR with bioprosthetic tissue valve; peak/mean gradients across the mitral
valve are 8/4 mmHg. Mild mitral regurgitation.
Moderate to severe aortic stenosis.
Moderate to severe tricuspid regurgitation.
Estimated pulmonary artery pressure of 37 mmHg, assuming a right atrial
pressure of 3 mmHg.
No prior study available for comparison.
3. Trop elevation - Non-ischemic myocardial injury versus mild rhabdo. No chest pain.
-downtrended.
4. CK elevation - Unclear how long she was on the ground but has mild rhabdo w/o KENDRA.
- hold lasix for now
- s/p 500 ml bolus,
- encourage po intake
BUN/Creat 25/0.7-->17/0.7
HLD-Cont statin
DVT PPX -okay for lovenox per ortho.
Full Code
Anticipated Discharge: > 48 hours
Subjective/Interval History
-
Date of Service: December 08, 2023
Pt states pain is controlled
Objective Data
-
Labs:
Laboratory Results
12/08/23
05:49
WBC 5.8
Hgb 11.4 L
Hct 34.7 L
Plt Count 137
Sodium 138
Potassium 3.9
Chloride 108 H
Carbon Dioxide 28
BUN 17
Creatinine 0.7
Glucose 90
Calcium 9.0
Vital Signs:
Vital Signs
Temp Pulse Resp BP Pulse Ox
97.5 F 96 18 125/79 99
12/08/23 11:00 12/08/23 11:00 12/08/23 11:00 12/08/23 11:00 12/08/23 11:00
I&O
12/07/23 12/08/23 12/09/23
06:59 06:59 06:59
Intake Total 400 / 400 1760 / 1760
Output Total 1000 / 1000 1825 / 1825
Balance -600 / -600 -65 / -65
Review of Systems
-
History Source: Patient and Coordinated Provider
EENT: Reports No Symptoms Reported
Respiratory: Reports No Symptoms
Cardiac: Reports No Symptoms
Abdomen/GI: Reports No Symptoms
Musculoskeletal: Reports Joint Pain (Rt hip)
Physical Exam
-
General: Well Developed, Well Nourished (thin) and No Apparent Distress
HEENT: Normocephalic and Atraumatic
Respiratory: Clear to Auscultation; Negative Wheezes, Rales or Rhonchi
Cardiac: S1/S2 and Irregular Rhythm
GI: Nontender and Nondistended
Musculoskeletal: No Clubbing, No Cyanosis and No Edema
Skin: Warm and Dry
Neuro: Awake, Alert and Oriented
[2023-12-08 15:00] VITALS: BP 137/76
[2023-12-08] MEDS: LOVENOX 40 MG SC (17:07)
[2023-12-08] MEDS: TOPROL XL 25 MG PO (17:07)
[2023-12-08 19:20] VITALS: BP 107/67
[2023-12-08] MEDS: PEPCID 20 MG PO (20:19)
[2023-12-08 23:05] VITALS: BP 120/80
[2023-12-09] MEDS: TYLENOL PO ×2 (00:17→03:04)
[2023-12-09 03:04] VITALS: BP 134/77
[2023-12-09 06:09] LABS: % Basophils 0.4 % (0-2); % Eosinophils 2.2 % (0-6); % Immature Granulocytes 0.1 % (0-0.5); % Lymphocytes 17.5 % (20.5-51.1); % Monocytes 13.9 % (1.7-9.3); % Neutrophils 65.9 % (42.2-75.2); Absolute Eosinophils 0.2 10^3/uL (0-0.7); Absolute Lymphocytes 1.2 10^3/uL (1.2-3.4); Absolute Monocytes 0.9 10^3/uL (0.1-0.6); Absolute Neutrophils 4.4 10^3/uL (1.4-6.5); Hematocrit 35.5 % (37.0-47.0); Hemoglobin 11.7 g/dL (12.0-16.0); Mean Corpuscular Hgb 26.5 pg (27.0-31.0); Mean Corpuscular Volume 80.5 fL (81.0-99.0); Nucleated Red Blood Cells % 0 %; Platelet Count 140 10^3/uL (130-400); Red Blood Cell Count 4.41 10^6/uL (4.20-5.40); Red Cell Dist. Width 15.3 % (11.5-14.5); White Blood Cell Count 6.7 10^3/uL (4.8-10.8)
[2023-12-09 06:57] LABS: Blood Urea Nitrogen 21 mg/dl (7-17); Calcium 9.3 mg/dl (8.4-10.2); Carbon Dioxide 28 mmol/L (22-30); Chloride 105 mmol/L (98-107); Creatine Phosphokinase 50 U/L (30-135); Estimated Creatinine Clearance 44 ml/min; Glucose 96 mg/dl (70-99); Potassium 4.3 mmol/L (3.5-5.1); Sodium 137 mmol/L (135-145); eGFR > 60.00
[2023-12-09 07:00] VITALS: BP 148/66
--- NOTE | 2023-12-09 07:33 | W.PN.UPDATE ---
Update Note
Progress Note Update
Ms. Bryant is resting comfortably in bed this morning. She reports that her hip feels a little better this morning. Plan is for OR tomorrow under the direction of Dr. Dale for removal of hardware, conversion to right ONI. Surgical and blood
consents have been signed and placed on the patient's chart. NPO past midnight tonight. Pre-op ABX ordered. T&S complete. PLEASE STOP LOVENOX AFTER DOSE TONIGHT. Remain on bedrest. Continue pain management as needed. Will continue to follow along.
[2023-12-09] MEDS: SENOKOT 17.2 MG PO (08:23)
[2023-12-09] MEDS: COLACE 100 MG PO (08:23)
[2023-12-09] MEDS: TYLENOL 650 MG PO ×4 (08:23→21:30)
[2023-12-09] MEDS: VITAMIN D3 (cholecalciferol) 25 MCG PO (08:23)
[2023-12-09] MEDS: LIPITOR 10 MG PO (08:23)
[2023-12-09 10:59] VITALS: BP 141/76
--- NOTE | 2023-12-09 14:46 | PN.CDI ---
CDI
- -
CDI:
Physician Documentation Request
Admit Date: 12/05/23 16:51
Dear Doctor Oziel,
Please review the following and provide your response in the progress notes.
Clinical Indicators:
H+P, 12/04
#...who presents to the hospital following a fall and being found down at home.
Home Medications
#cholecalciferol (vitamin D3) 25 mcg (1,000 unit) capsule (Vitamin D3) 1,000 unit PO DAILY
#ergocalciferol (vitamin D2) 1,250 mcg (50,000 unit) capsule 50,000 units PO WEEKLY 10/10/20
PN, 12/07
#1. Right Hip Fracture - internally fixated intertrochanteric fracture of the RIGHT.
Please clarify the following regarding the etiology of the right periprosthetic fracture:
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
Traumatic fracture only
Other(please specify)
Type Fracture
Age-related With current pathological fx
Drug induced (specify drug) without current pathological fx
Idiopathic
Osteoporosis of disuse
Due to post surgical malabsorption
Post traumatic
Post oophorectomy osteoporosis
Use of terms such as suspected, likely, concern for, or probable (associated with a specific diagnosis that is being evaluated, monitored, or treated as if it exists) are acceptable and can be coded in the inpatient setting, when documented at the
time of discharge.
Thank you,
Kaley Rae
CDI Specialist
Please use your independent medical judgment in providing your response.
--- NOTE | 2023-12-09 14:59 | PN.CDI ---
CDI
- -
CDI:
Physician Documentation Request
Admit Date: 12/05/23 16:51
Dear Doctor Oziel,
Please review the following and provide your response in the progress notes.
Clinical Indicators:
H+P, 12/04
#...presents to the hospital following a fall and being found down at home.
#Patient recalls having a mechanical fall where she slipped and fell.
#...She remembers not hitting her head.
#...CK elevation - Unclear how long she was on the ground but has mild rhabdo w/o KENDRA.
#...- s/p 500 ml bolus,
Please clarify in the progress notes the diagnosis associated with the above finding...:
Traumatic Rhabdomyolysis
Non-Traumatic Rhabdomyolysis
Other(please specify)
Use of terms such as suspected, likely, concern for, or probable (associated with a specific diagnosis that is being evaluated, monitored, or treated as if it exists) are acceptable and can be coded in the inpatient setting, when documented at the
time of discharge.
Thank you,
Kaley Rae RN BSN CCDS
CDI Specialist
please contact via [facility]
Please use your independent medical judgment in providing your response.
[2023-12-09 15:25] VITALS: BP 120/75
--- NOTE | 2023-12-09 16:46 | W.PN.HOSP.TC ---
Today's Communication/Plan
-
For surgical intervention tomorrow
Assessment / Plan
Assessment / Plan
1. Right Hip Fracture - internally fixated intertrochanteric fracture of the RIGHT. Pain with reduced ROM.
- hold anticoagulation -xarelto washout
- pain control
- PT/OT post op.
- orthopedic consultation appreciated
- advance diet
- surgery on Friday. Okay for lovenox per ortho. Last dose 12/08 pm.
- Patient had mild bump in troponin likely secondary to mild rhabdomyolysis.
2. AFIB - Permanent AFIB. Rate is appropriate.
- hold ac per ortho
- continue metoprolol
Echo: Normal LV size and function with no regional wall motion abnormalities.
LVEF is 55 to 60% by visual estimation.
Normal right ventricular size and function.
S/p MVR with bioprosthetic tissue valve; peak/mean gradients across the mitral
valve are 8/4 mmHg. Mild mitral regurgitation.
Moderate to severe aortic stenosis.
Moderate to severe tricuspid regurgitation.
Estimated pulmonary artery pressure of 37 mmHg, assuming a right atrial
pressure of 3 mmHg.
No prior study available for comparison.
3. Trop elevation - Non-ischemic myocardial injury versus mild rhabdo. No chest pain.
-downtrended.
4. CK elevation - Unclear how long she was on the ground but has mild rhabdo w/o KENDRA.
- hold lasix for now
- s/p 500 ml bolus,
- encourage po intake
BUN/Creat 25/0.7-->17/0.7
5. 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
6. Traumatic Rhabdomyolysis
CPK 605-->479-->50
DVT PPX -okay for lovenox per ortho.
Full Code
Anticipated Discharge: > 48 hours
Subjective/Interval History
-
Date of Service: December 09, 2023
Tolerating diet, pain controlled
Objective Data
-
Labs:
Laboratory Results
12/09/23
05:44
WBC 6.7
Hgb 11.7 L
Hct 35.5 L
Plt Count 140
Sodium 137
Potassium 4.3
Chloride 105
Carbon Dioxide 28
BUN 21 H
Creatinine 0.8
Glucose 96
Calcium 9.3
Vital Signs:
Vital Signs
Temp Pulse Resp BP Pulse Ox
97.8 F 85 16 120/75 97
12/09/23 15:25 12/09/23 15:25 12/09/23 15:25 12/09/23 15:25 12/09/23 15:25
I&O
12/08/23 12/09/23 12/10/23
06:59 06:59 06:59
Intake Total 1760 / 1760 840 / 840
Output Total 1825 / 1825 1000 / 1000
Balance -65 / -65 -160 / -160
Review of Systems
-
History Source: Patient and Coordinated Provider
EENT: Reports No Symptoms Reported
Respiratory: Reports No Symptoms
Cardiac: Reports No Symptoms
Abdomen/GI: Reports No Symptoms
Musculoskeletal: Reports Joint Pain (Rt hip)
Physical Exam
-
General: Well Developed, Well Nourished (thin) and No Apparent Distress
HEENT: Normocephalic and Atraumatic
Respiratory: Clear to Auscultation; Negative Wheezes, Rales or Rhonchi
Cardiac: S1/S2 and Irregular Rhythm
GI: Nontender and Nondistended
Musculoskeletal: No Clubbing, No Cyanosis and No Edema
Skin: Warm and Dry
Neuro: Awake, Alert and Oriented
[2023-12-09] MEDS: TOPROL XL 25 MG PO (17:23)
[2023-12-09 19:32] VITALS: BP 102/69
[2023-12-09] MEDS: SENOKOT PO ×2 (20:00→21:30)
[2023-12-09] MEDS: COLACE PO ×2 (20:00→21:30)
[2023-12-09] MEDS: PEPCID 20 MG PO (21:30)
[2023-12-09 23:16] VITALS: BP 126/67
[2023-12-10] VITALS (13 sets, daily range): BP systolic 97–127; BP diastolic 61–83; PULSE 89; O2SAT 99
[2023-12-10] MEDS: TYLENOL PO ×3 (00:42→12:00)
--- NOTE | 2023-12-10 07:51 | W.PN.UPDATE ---
Update Note
Progress Note Update
Ms. Bryant is resting comfortably in bed this morning. Plan is for OR today under the direction of Dr. Dale for removal of hardware, conversion to right ONI. Surgical and blood consents have been signed and placed on the patient's chart. NPO
until surgery. Pre-op ABX ordered. T&S complete. NO THINNERS UNTIL AFTER SURGERY. Remain on bedrest. Continue pain management as needed. Will continue to follow along.
--- NOTE | 2023-12-10 08:08 | W.PN.HOSP.TC ---
Today's Communication/Plan
-
for ONI later today
resume Xarelto when cleared by ortho
Assessment / Plan
Assessment / Plan
1. Right Hip Fracture - internally fixated intertrochanteric fracture of the RIGHT. Pain with reduced ROM.
- hold anticoagulation -xarelto washout
- pain control
- PT/OT post op.
- orthopedic consultation appreciated
- advance diet
- surgery on Friday. Okay for lovenox per ortho. Last dose 12/08 pm.
- Patient had mild bump in troponin likely secondary to mild rhabdomyolysis.
surgery scheduled for later this morning
2. AFIB - Permanent AFIB. Rate is appropriate.
- hold ac per ortho, completed Xarelto wash out, resume when cleared by ortho
- continue metoprolol
Echo: Normal LV size and function with no regional wall motion abnormalities.
LVEF is 55 to 60% by visual estimation.
Normal right ventricular size and function.
S/p MVR with bioprosthetic tissue valve; peak/mean gradients across the mitral
valve are 8/4 mmHg. Mild mitral regurgitation.
Moderate to severe aortic stenosis.
Moderate to severe tricuspid regurgitation.
Estimated pulmonary artery pressure of 37 mmHg, assuming a right atrial
pressure of 3 mmHg.
No prior study available for comparison.
3. Trop elevation - Non-ischemic myocardial injury versus mild rhabdo. No chest pain.
-downtrended.
4. CK elevation - Unclear how long she was on the ground but had mild rhabdo w/o KENDRA.
- hold lasix for now
- was given 500 ml bolus,
- encourage po intake
BUN/Creat 25/0.7-->17/0.7
5. 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
6. Traumatic Rhabdomyolysis
CPK 605-->479-->50
DVT PPX -okay for lovenox per ortho, now stopped.
Full Code
Anticipated Discharge: > 48 hours
Subjective/Interval History
-
Date of Service: December 10, 2023
Patient awaiting surgical intervention
Objective Data
-
Vital Signs:
Vital Signs
Temp Pulse Resp BP Pulse Ox
97.7 F 87 16 115/74 97
12/10/23 07:00 12/10/23 07:00 12/10/23 07:00 12/10/23 07:00 12/10/23 07:00
I&O
12/09/23 12/10/23 12/11/23
06:59 06:59 06:59
Intake Total 840 / 840
Output Total 1000 / 1000 800 / 800
Balance -160 / -160 -800 / -800
Review of Systems
-
History Source: Patient and Coordinated Provider
EENT: Reports No Symptoms Reported
Respiratory: Reports No Symptoms
Cardiac: Reports No Symptoms
Abdomen/GI: Reports No Symptoms
Musculoskeletal: Reports Joint Pain (Rt hip)
Physical Exam
-
General: Well Developed, Well Nourished (thin) and No Apparent Distress
HEENT: Normocephalic and Atraumatic
Respiratory: Clear to Auscultation; Negative Wheezes, Rales or Rhonchi
Cardiac: S1/S2 and Irregular Rhythm
GI: Nontender and Nondistended
Musculoskeletal: No Clubbing, No Cyanosis and No Edema
Skin: Warm and Dry
Neuro: Awake, Alert and Oriented
[2023-12-10] MEDS: LIPITOR 10 MG PO (08:41)
[2023-12-10] MEDS: VITAMIN D3 (cholecalciferol) 25 MCG PO (08:41)
[2023-12-10] MEDS: TYLENOL 650 MG PO ×3 (08:41→20:28)
[2023-12-10] MEDS: SENOKOT PO ×2 (08:42→20:27)
[2023-12-10] MEDS: COLACE PO ×2 (08:42→20:27)
--- NOTE | 2023-12-10 10:00 | PTCARENOTE ---
Patient transferred to periop area for upcoming procedure.
--- NOTE | 2023-12-10 12:43 | CM ---
Case management following for d/c planning
Pt for OR today - Right Hip Fracture - internally fixated intertrochanteric fracture
Pend PT/OT eval post op for dispo plan
CM will follow for d/c planning
Plan - anticipate snf - pending eval
[2023-12-10] MEDS: DILAUDID 0.25 MG IV ×2 (13:22→13:39)
[2023-12-10] MEDS: ROXICODONE 5 MG PO (14:17)
--- NOTE | 2023-12-10 15:55 | PTCARENOTE ---
Pt received from PACU s/p R ONI. Pt drowsy but arousable to speech. AAOx3 but forgetful. NSR on athletic monitor with frequent PACs. HRs 70s-90s. SaO2 97% on 2L nasal cannula. BP 97/64. R hip Aquacel dressing with scant sanguineous drainage,
otherwise CDI. R knee appears to be internally rotated. Hospitalist and ortho PA aware. Abductor pillow ordered. Pt remains in bed at this time, call perez in reach.
[2023-12-10] MEDS: TOPROL XL PO (17:39)
[2023-12-10] MEDS: D5/0.9% SODIUM CHLORIDE 1000 IV (18:19)
[2023-12-10] MEDS: ANCEF 5 IV (20:29)
[2023-12-10] MEDS: BACTROBAN 2% OINTMENT 1 APPLIC NASAL (20:30)
[2023-12-10] MEDS: PEPCID 20 MG PO (20:34)
--- NOTE | 2023-12-10 21:13 | PTCARENOTE ---
ax3- forgetful very drowsy but arousable abductor pillow in place- rt hip dsg with small amt of drainage intact- bp wnl afebrile- sanders with yellow output- fluids per orders. bp increasing to normal limits
[2023-12-11] VITALS (8 sets, daily range): BP systolic 103–142; BP diastolic 57–75; PULSE 96–102; O2SAT 99
[2023-12-11] MEDS: TYLENOL PO ×2 (00:42→03:33)
[2023-12-11] MEDS: ANCEF 5 IV (03:32)
[2023-12-11] MEDS: D5/0.9% SODIUM CHLORIDE 1000 IV ×2 (05:59→17:36)
[2023-12-11 06:55] LABS: % Basophils 0.2 % (0-2); % Immature Granulocytes 0.6 % (0-0.5); % Lymphocytes 5.1 % (20.5-51.1); % Monocytes 11.3 % (1.7-9.3); % Neutrophils 82.8 % (42.2-75.2); Absolute Immature Granulocytes 0.1 10^3/uL (0-0.05); Absolute Lymphocytes 0.5 10^3/uL (1.2-3.4); Absolute Monocytes 1.2 10^3/uL (0.1-0.6); Absolute Neutrophils 8.4 10^3/uL (1.4-6.5); Hemoglobin 10.2 g/dL (12.0-16.0); Mean Corp Hgb Conc. 32.9 g/dL (33.0-37.0); Mean Corpuscular Hgb 25.8 pg (27.0-31.0); Mean Corpuscular Volume 78.3 fL (81.0-99.0); Mean Platelet Volume 10.6 fL (7.4-10.4); Nucleated Red Blood Cells % 0 %; Platelet Count 171 10^3/uL (130-400); Red Blood Cell Count 3.96 10^6/uL (4.20-5.40); Red Cell Dist. Width 15.1 % (11.5-14.5); White Blood Cell Count 10.2 10^3/uL (4.8-10.8)
[2023-12-11 07:22] LABS: Blood Urea Nitrogen 22 mg/dl (7-17); Calcium 8.7 mg/dl (8.4-10.2); Carbon Dioxide 27 mmol/L (22-30); Chloride 102 mmol/L (98-107); Estimated Creatinine Clearance 44 ml/min; Glucose 143 mg/dl (70-99); Potassium 4.5 mmol/L (3.5-5.1); Sodium 136 mmol/L (135-145); eGFR > 60.00
--- NOTE | 2023-12-11 08:19 | W.PN.ORTHO ---
Today's Communication / Plan
-
Postop day #1 status post right hip conversion to total hip arthroplasty
-WBAT RLE.
-PT/OT to tolerance. THPs.
-Xarelto may resume tomorrow, Aspirin 325 mg tonight for DVT prophylaxis.
-Continue pain regimen.
-Appreciate case management efforts in d/c planning.
-Aquacel dressing to remain in place x 1 week. Kelayres to be removed 2 weeks post op.
-If chris removed at facility, f/u in office in 4 weeks for repeat x-rays.
-Ortho to follow along.
Assessment
.
Distal Motor Intact: Yes
Dressing:
Clean, dry and intact.
Assessment:
Postop day #1 status post right hip conversion to total hip arthroplasty
-WBAT RLE.
-PT/OT to tolerance. THPs.
-Xarelto may resume tomorrow, Aspirin 325 mg tonight for DVT prophylaxis.
-Continue pain regimen.
-Appreciate case management efforts in d/c planning.
-Aquacel dressing to remain in place x 1 week. Chris to be removed 2 weeks post op.
-If chris removed at facility, f/u in office in 4 weeks for repeat x-rays.
-Ortho to follow along.
Plan
.
Surgery / Date: Right hip conversion to ONI 12/10/23 - Dr. Dale
DVT Prophylaxis: Aspirin
Activity:
Out of bed.
PT/OT
Subjective
.
.:
Patient resting comfortably in bed. Denies any pain in her right hip. Somewhat confused and does not remember having her hip operated on yesterday.
Vital Signs and Labs
.
Vital Signs and Labs:
Lab Results
12/11/23 05:53
12/11/23 05:53
Temp Pulse Resp BP Pulse Ox
98.1 F 100 16 117/67 94
12/11/23 07:36 12/11/23 07:36 12/11/23 07:36 12/11/23 07:36 12/11/23 07:36
Physical Exam
-
Right hip: Aquacel dressing is clean, dry, and intact. No evidence of drainage. Mild diffuse swelling. No tenderness palpation. Gentle range of motion of the hip without pain. Abductor pillow in place. Calf is soft and nontender palpation.
Neurovascular intact distally
[2023-12-11] MEDS: TYLENOL 650 MG PO ×4 (08:27→20:11)
[2023-12-11] MEDS: SENOKOT 17.2 MG PO ×2 (08:27→20:11)
[2023-12-11] MEDS: BACTROBAN 2% OINTMENT 1 APPLIC NASAL ×2 (08:28→20:10)
[2023-12-11] MEDS: LIPITOR 10 MG PO (08:28)
[2023-12-11] MEDS: ASPIRIN 325 MG PO (08:28)
[2023-12-11] MEDS: VITAMIN D3 (cholecalciferol) 25 MCG PO (08:28)
[2023-12-11] MEDS: COLACE 100 MG PO ×2 (08:28→20:10)
--- NOTE | 2023-12-11 08:46 | PTCARENOTE ---
RN clarified with Dr Ludwig ok to remove sanders catheter this am. Sanders catheter removed at 845 am. Pt educated on need to call for assistance to get OOb to the commode and urinary retention protocol. Verbalizes understanding. Care ongoing at this
time.
--- NOTE | 2023-12-11 09:41 | W.PN.HOSP.TC ---
Today's Communication/Plan
-
Xarelto to resume tomorrow
slow IVF, stop once eating
Assessment / Plan
Assessment / Plan
1. Right Hip Fracture - internally fixated intertrochanteric fracture of the RIGHT. Pain with reduced ROM.
- hold anticoagulation -xarelto washout
- pain control
- PT/OT post op.
- post op day #1
pain has lessened, no appetite
Ortho has cleared to resume Xarelto tomorrow 12/11
Hgb 11.7-->10.2
2. AFIB - Permanent AFIB. Rate is appropriate.
- hold ac per ortho, completed Xarelto wash out, resume when cleared by ortho
- continue metoprolol
Echo: Normal LV size and function with no regional wall motion abnormalities.
LVEF is 55 to 60% by visual estimation.
Normal right ventricular size and function.
S/p MVR with bioprosthetic tissue valve; peak/mean gradients across the mitral
valve are 8/4 mmHg. Mild mitral regurgitation.
Moderate to severe aortic stenosis.
Moderate to severe tricuspid regurgitation.
Estimated pulmonary artery pressure of 37 mmHg, assuming a right atrial
pressure of 3 mmHg.
No prior study available for comparison.
3. Trop elevation - Non-ischemic myocardial injury versus mild rhabdo. No chest pain.
-downtrended. 0.043-->0.044-->0.031
4. CK elevation - Unclear how long she was on the ground but had mild rhabdo w/o KENDRA.
- hold lasix for now
- was given 500 ml bolus, IVF ordered perioperatively, will slow rate, stop once she is tolerating oral
- encourage po intake
BUN/Creat 25/0.7-->17/0.7
5. 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
6. Traumatic Rhabdomyolysis
CPK 605-->479-->50
DVT PPX -was on lovenox per ortho, now stopped.
Full Code
Anticipated Discharge: 24 - 48 hours
Subjective/Interval History
-
Date of Service: December 11, 2023
No appetite post op
Objective Data
-
Labs:
Laboratory Results
12/11/23
05:53
WBC 10.2
Hgb 10.2 L
Hct 31.0 L
Plt Count 171 D
Sodium 136
Potassium 4.5
Chloride 102
Carbon Dioxide 27
BUN 22 H
Creatinine 0.8
Glucose 143 H
Calcium 8.7
Vital Signs:
Vital Signs
Temp Pulse Resp BP Pulse Ox
98.1 F 100 16 117/67 94
12/11/23 07:36 12/11/23 07:36 12/11/23 07:36 12/11/23 07:36 12/11/23 07:36
I&O
12/10/23 12/11/23 12/12/23
06:59 06:59 06:59
Intake Total 420 / 420
Output Total 800 / 800 1100 / 1100
Balance -800 / -800 -680 / -680
Review of Systems
-
History Source: Patient and Coordinated Provider
EENT: Reports No Symptoms Reported
Respiratory: Reports No Symptoms
Cardiac: Reports No Symptoms
Abdomen/GI: Reports No Symptoms and Anorexia (post op); Denies Abdominal Pain, Nausea or Vomiting
Musculoskeletal: Reports Joint Pain (Rt hip)
Physical Exam
-
General: Well Developed, Well Nourished (thin) and No Apparent Distress
HEENT: Normocephalic and Atraumatic
Respiratory: Clear to Auscultation; Negative Wheezes, Rales or Rhonchi
Cardiac: S1/S2 and Irregular Rhythm
GI: Nontender and Nondistended
Musculoskeletal: No Clubbing, No Cyanosis and No Edema
Skin: Warm and Dry
Neuro: Awake, Alert and Oriented
--- NOTE | 2023-12-11 10:11 | CM ---
Addendum entered by Annelise Álvarez RN 12/11/23 16:06:
IMM signed and placed on chart.
Original Note:
Reviewed the chart notes and spoke with the patient and her daughter at the bedside. PT recommending SNF/rehab prior to transitioning back to apartment. Reviewed area SNFs. Patient and daughter requested referral be sent to [facility] since it is
part of the [facility] network. Referral and [facility] sent via [facility]. CM continues to be available to patient/family and is monitoring medical plan for needs at discharge.
Plan: Discharge to SNF once bed found an precert obtained.
--- NOTE | 2023-12-11 14:48 | PN.CDI ---
CDI
- -
CDI:
Physician Documentation Request
Admit Date: 12/05/23 16:51
Dear Doctor Oziel,
Please review the following and provide your response in the progress notes.
Clinical Indicators:
12/08/23 08:30 (created 12/08/23 08:45) - Wound Note
#Patient seen for HAPU for R buttocks stage 2 pressure injury.
#Patient has a R lower gluteal fold linear stage 2 pressure injury suspect r/t her Denis catheter.
Physician documentation of the type and location of wounds is required for compliant documentation. Based on the above clinical findings and your assessment, please provide the following in your progress note:
Right buttocks, stage 2 pressure injury and right lower gluteal fold stage 2 pressure injury
Other (please specify)
1. Location of the ulcer/wound, including laterality.
2. Type (etiology) of ulcer/wound:
- Diabetic ulcer
- Traumatic wound
- Venous stasis ulcer
- Pressure (decubitus) ulcer
3. If a pressure ulcer, please also include the stage* of the ulcer:
- Stage 1 - Skin intact, non-blanchable redness
- Stage 2 - Partial thickness loss of dermis, includes intact or open blister
- Stage 3 - Full thickness tissue not including bone, tendon or muscle
- Stage 4 - Full thickness tissue loss, including exposed bone, tendon or muscle
Use of terms such as suspected, likely, concern for, or probable (associated with a specific diagnosis that is being evaluated, monitored, or treated as if it exists) are acceptable and can be coded in the inpatient setting, when documented at the
time of discharge.
Thank you,
Kaley Rae RN BSN CCDS
CDI Specialist
please contact via tiger text
Please use your independent medical judgment in providing your response.
*Source: National Pressure Ulcer Advisory Panel (NPUAP)
--- NOTE | 2023-12-11 14:57 | PN.CDI ---
CDI
- -
CDI:
Physician Documentation Request
Admit Date: 12/05/23 16:51
Dear Doctor Oziel,
Please review the following and provide your response in the progress notes.
Clinical Indicators:
12/09 PROCEDURE:
1. 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
2. Removal of deeper buried implant (right hip nail).
BLOOD LOSS: 100 mL.
Laboratory Tests
12/05/23 12/06/23 12/08/23
14:01 06:14 05:49
Hgb 12.9 11.3 L 11.4 L
12/09/23 12/11/23
05:44 05:53
Hgb 11.7 L 10.2 L
Based on the above and your clinical assessment, please clarify, in your progress note the condition/diagnosis evaluated, monitored and/or treated?
Acute blood loss anemia
Abnormal lab value, clinically insignificant
Other(please specify)
Use of terms such as suspected, likely, concern for, or probable (associated with a specific diagnosis that is being evaluated, monitored, or treated as if it exists) are acceptable and can be coded in the inpatient setting, when documented at the
time of discharge.
Thank you,
Kaley Rae RN BSN CCDS
CDI Specialist
please contact via tiger text
Please use your independent medical judgment in providing your response.
--- NOTE | 2023-12-11 15:12 | PTCARENOTE ---
Addendum entered by Yana Rae RN 12/11/23 17:24:
Pt continues with no urine output/ no urge to void. Dr Ludwig notified. IVF reordered. Care ongoing.
Original Note:
Pt with no urine output since indwelling catheter removal this am, and no urge to urinate. PO intake encouraged. Dr Ludwig notified and advised RN to continue to encourage PO intake. Care remains ongoing.
[2023-12-11] MEDS: TOPROL XL 25 MG PO (17:37)
[2023-12-11] MEDS: ROXICODONE 5 MG PO (21:28)
[2023-12-11] MEDS: PEPCID 20 MG PO (21:28)
[2023-12-12] VITALS (7 sets, daily range): BP systolic 94–112; BP diastolic 46–66; PULSE 96–118; O2SAT 96–98; BMI 23.9
[2023-12-12] MEDS: TYLENOL PO ×2 (00:20→17:41)
[2023-12-12] MEDS: TYLENOL 650 MG PO ×4 (04:04→19:18)
[2023-12-12 07:10] LABS: Blood Urea Nitrogen 20 mg/dl (7-17); Calcium 8.4 mg/dl (8.4-10.2); Carbon Dioxide 25 mmol/L (22-30); Chloride 105 mmol/L (98-107); Estimated Creatinine Clearance 51 ml/min; Glucose 108 mg/dl (70-99); Potassium 4.5 mmol/L (3.5-5.1); Sodium 132 mmol/L (135-145); eGFR > 60.00
[2023-12-12 08:17] LABS: % Basophils 0.4 % (0-2); % Eosinophils 2.2 % (0-6); % Immature Granulocytes 0.7 % (0-0.5); % Monocytes 15.7 % (1.7-9.3); Absolute Eosinophils 0.1 10^3/uL (0-0.7); Absolute Lymphocytes 0.6 10^3/uL (1.2-3.4); Absolute Monocytes 0.9 10^3/uL (0.1-0.6); Absolute Neutrophils 3.9 10^3/uL (1.4-6.5); Hematocrit 28.6 % (37.0-47.0); Hemoglobin 9.5 g/dL (12.0-16.0); Mean Corp Hgb Conc. 33.2 g/dL (33.0-37.0); Mean Corpuscular Hgb 26.6 pg (27.0-31.0); Mean Corpuscular Volume 80.1 fL (81.0-99.0); Mean Platelet Volume 10.3 fL (7.4-10.4); Nucleated Red Blood Cells % 0 %; Platelet Count 122 10^3/uL (130-400); Red Blood Cell Count 3.57 10^6/uL (4.20-5.40); Red Cell Dist. Width 15.3 % (11.5-14.5); White Blood Cell Count 5.5 10^3/uL (4.8-10.8)
[2023-12-12] MEDS: COLACE 100 MG PO ×2 (08:34→19:18)
[2023-12-12] MEDS: LIPITOR 10 MG PO (08:36)
[2023-12-12] MEDS: SENOKOT 17.2 MG PO ×2 (08:37→19:18)
[2023-12-12] MEDS: VITAMIN D3 (cholecalciferol) 25 MCG PO (08:37)
[2023-12-12] MEDS: D5/0.9% SODIUM CHLORIDE 1000 IV ×3 (08:43→22:22)
--- NOTE | 2023-12-12 08:44 | PTCARENOTE ---
Pt noted with R knee internal rotation despite frequent repositioning and use of an abductor pillow. [facility] notified. Care ongoing at this time.
[2023-12-12] MEDS: ROXICODONE 5 MG PO (09:15)
--- NOTE | 2023-12-12 09:53 | W.PN.HOSP.TC ---
Addendum entered and electronically signed by Greg Ludwig MD 12/12/23 18:33:
Met with 2 dgts in room regarding pt's profound weakness and they are aware.
They did relate that pt is a DNR and this will be changed
Original Note:
Today's Communication/Plan
-
Ensure
resume Lasix
slow IVF
will order IS
Assessment / Plan
Assessment / Plan
1. Right Hip Fracture - internally fixated intertrochanteric fracture of the RIGHT. Pain with reduced ROM.
- hold anticoagulation -xarelto was washout
- pain control
- PT/OT post op.
- post op day #2 (12/09)
pain has lessened, no appetite. Will order Ensure
Ortho has cleared to resume Xarelto tomorrow 12/11
Hgb 11.7-->10.2-->9.5
Nursing noted rt leg internally rotated, asked nursing to contact ortho
2. AFIB - Permanent AFIB. Rate is appropriate.
- hold ac per ortho, completed Xarelto wash out
- continue metoprolol
Echo: Normal LV size and function with no regional wall motion abnormalities.
LVEF is 55 to 60% by visual estimation.
Normal right ventricular size and function.
S/p MVR with bioprosthetic tissue valve; peak/mean gradients across the mitral
valve are 8/4 mmHg. Mild mitral regurgitation.
Moderate to severe aortic stenosis.
Moderate to severe tricuspid regurgitation.
Estimated pulmonary artery pressure of 37 mmHg, assuming a right atrial
pressure of 3 mmHg.
No prior study available for comparison.
3. Trop elevation - Non-ischemic myocardial injury versus mild rhabdo. No chest pain.
-downtrended. 0.043-->0.044-->0.031
4. CK elevation - Unclear how long she was on the ground but had mild rhabdo w/o KENDRA.
- will resume Lasix and slow IVF
- was given 500 ml bolus, IVF ordered perioperatively, will slow rate, stop once she is tolerating oral
- encourage po intake
BUN/Creat 25/0.7-->17/0.7-->20/0.7
5. 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
6. Traumatic Rhabdomyolysis
CPK 605-->479-->50
7. Acute Blood loss anemia, perioperatively, mild
Hgb 12.9-->11.3-->10.2-->9.5
8.HAPU for R buttocks stage 2 pressure injury.
R lower gluteal fold linear stage 2 pressure injury suspect r/t her Denis catheter.
DVT PPX -was on lovenox per ortho, now stopped.
Full Code
Anticipated Discharge: > 48 hours
Subjective/Interval History
-
Date of Service: December 12, 2023
Marginal appetite, starting to pass urine regularly
Objective Data
-
Labs:
Laboratory Results
12/12/23 12/12/23
06:19 07:17
WBC Cancelled 5.5
Hgb Cancelled 9.5 L
Hct Cancelled 28.6 L
Plt Count Cancelled 122 L D
Sodium 132 L
Potassium 4.5
Chloride 105
Carbon Dioxide 25
BUN 20 H
Creatinine 0.7
Glucose 108 H
Calcium 8.4
Vital Signs:
Vital Signs
Temp Pulse Resp BP Pulse Ox
97.8 F 100 18 112/66 97
12/12/23 07:02 12/12/23 07:02 12/12/23 07:02 12/12/23 07:02 12/12/23 07:02
I&O
12/11/23 12/12/23 12/13/23
06:59 06:59 06:59
Intake Total 420 / 420 1760 / 1760
Output Total 1100 / 1100 700 / 700
Balance -680 / -680 1060 / 1060
Review of Systems
-
History Source: Patient and Coordinated Provider
EENT: Reports No Symptoms Reported
Respiratory: Reports No Symptoms
Cardiac: Reports No Symptoms
Abdomen/GI: Reports No Symptoms and Anorexia (post op); Denies Abdominal Pain, Nausea or Vomiting
Musculoskeletal: Reports Joint Pain (Rt hip)
Physical Exam
-
General: Well Developed, Well Nourished (thin) and No Apparent Distress; Negative Respiratory Distress
HEENT: Normocephalic and Atraumatic
Respiratory: Clear to Auscultation and Rales (atelectatic basilar rales); Negative Wheezes or Rhonchi
Cardiac: S1/S2 and Irregular Rhythm
GI: Nontender and Nondistended
Musculoskeletal: No Clubbing, No Cyanosis and No Edema
Skin: Warm and Dry
Neuro: Awake, Alert and Oriented
[2023-12-12] MEDS: LASIX 40 MG PO (11:46)
--- NOTE | 2023-12-12 13:05 | W.PN.ORTHO ---
Today's Communication / Plan
-
Postop day #2 status post right hip conversion to total hip arthroplasty
-WBAT RLE.
-PT/OT to tolerance. THPs. Abductor pillow at rest
-Xarelto resumed for DVT ppx
-Continue pain regimen.
-Appreciate case management efforts in d/c planning.
-Aquacel dressing to remain in place x 1 week. [place] to be removed 2 weeks post op.
-If chris removed at facility, f/u in office in 4 weeks for repeat x-rays.
-Ortho to follow along.
Assessment
.
Distal Motor Intact: Yes
Dressing:
Clean, dry and intact. Central strikethrough
Plan
.
Surgery / Date: Right hip conversion to ONI 12/10/23 - Dr. Dale
Activity:
Out of bed.
PT/OT
Subjective
.
.:
Patient resting comfortably.
Vital Signs and Labs
.
Vital Signs and Labs:
Lab Results
12/12/23 07:17
12/12/23 06:19
Temp Pulse Resp BP Pulse Ox
97.7 F 94 17 98/65 96
12/12/23 11:41 12/12/23 11:41 12/12/23 11:41 12/12/23 11:46 12/12/23 11:41
Non-invasive Hgb result: 9.6
--- NOTE | 2023-12-12 15:04 | PTCARENOTE ---
Pt with increased confusion/ drowsiness and decreased responsiveness while sitting up in the chair. Neuro assessment unchanged. Pt found to be hypotensive BP 75/45. Pt assisted back to bed with help from PT/OT and placed supine with abductor pillow.
Immediate BP supine 104/55 HR 75. No LOC/ syncopal episode noted. Dr Ludwig made aware via tiger text and increased IVF to 125. Pt resting in bed at this time call in reach. Care remains ongoing.
--- NOTE | 2023-12-12 16:15 | CM ---
Not medically cleared for discharge as yet. [facility]. [facility] anticipates bed available on 12/13/23. Will need insurance auth when medically cleared for discharge. [facility] NPI # [id number] and Accepting MD is Dr. Aaron Lobo,
NPI # [id number].
[2023-12-12] MEDS: TOPROL XL PO (17:41)
[2023-12-12] MEDS: ULTRAM 25 MG PO (20:30)
[2023-12-12] MEDS: PEPCID 20 MG PO (20:31)
[2023-12-12] MEDS: XARELTO 15 MG PO (22:22)
[2023-12-13] VITALS (11 sets, daily range): BP systolic 90–107; BP diastolic 46–64; PULSE 94–145; O2SAT 96
[2023-12-13] MEDS: TYLENOL PO (00:24)
[2023-12-13] MEDS: TYLENOL 650 MG PO ×5 (04:30→20:11)
[2023-12-13] MEDS: ULTRAM 25 MG PO ×2 (04:30→20:11)
--- NOTE | 2023-12-13 07:42 | W.PN.HOSP.TC ---
Addendum entered and electronically signed by Greg Ludwig MD 12/13/23 07:58:
CBC just became available, Hgb dropped to 7.0
Will stop Xarelto and transfuse 1 unit now
Original Note:
Today's Communication/Plan
-
minimize analgesics
encourage oral intake
DC IVF once oral intake is adequate
Assessment / Plan
Assessment / Plan
1. Right Hip Fracture - internally fixated intertrochanteric fracture of the RIGHT. Pain with reduced ROM.
- held anticoagulation -xarelto was washout and resumed 12/11
- pain control, prolonged sedation from anesthesia, hopefully now beginning to resolve
- PT/OT post op.
- post op day #3 (12/09)
pain has lessened, no appetite. Will order Ensure
Hgb 11.7-->10.2-->9.5
Nursing noted rt leg internally rotated, asked nursing to contact ortho
Analgesic changed from Oxycodone to Tramadol due to excess sedation exacerbated by Oxycodone, hopefully with less sedation pt will start to eat and can increase activity with planned dc to SNF
2. AFIB - Permanent AFIB. Rate is appropriate.
- BP generally on low side, will continue metoprolol, but put holding parameters in place (most recent reading 107/53)
Echo: Normal LV size and function with no regional wall motion abnormalities.
LVEF is 55 to 60% by visual estimation.
Normal right ventricular size and function.
S/p MVR with bioprosthetic tissue valve; peak/mean gradients across the mitral
valve are 8/4 mmHg. Mild mitral regurgitation.
Moderate to severe aortic stenosis.
Moderate to severe tricuspid regurgitation.
Estimated pulmonary artery pressure of 37 mmHg, assuming a right atrial
pressure of 3 mmHg.
No prior study available for comparison.
3. Trop elevation - Non-ischemic myocardial injury versus mild rhabdo. No chest pain.
-downtrended. 0.043-->0.044-->0.031
4. CK elevation - Unclear how long she was on the ground but had mild rhabdo w/o KENDRA.
- will resume Lasix and slow IVF
- was given 500 ml bolus, IVF ordered perioperatively, will slow rate, stop once she is tolerating oral. Needed to increase rate for short time due to low BP, better today
- encourage po intake.
BUN/Creat 25/0.7-->17/0.7-->20/0.7-->p
5. 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
6. Traumatic Rhabdomyolysis
CPK 605-->479-->50
7. Acute Blood loss anemia, perioperatively, mild
Hgb 12.9-->11.3-->10.2-->9.5-->p
8.HAPU for R buttocks stage 2 pressure injury.
R lower gluteal fold linear stage 2 pressure injury suspect r/t her Denis catheter.
DVT PPX -was on lovenox per ortho, now stopped.
met with dgts 12/11, code status changed to DNR
Dgt Shauna updated by phone 12/12
Anticipated Discharge: > 48 hours
Subjective/Interval History
-
Date of Service: December 13, 2023
Not as lethargic today, denies sob
Objective Data
-
Labs:
Laboratory Results
12/13/23
05:55
WBC Pending
Hgb Pending
Hct Pending
Plt Count Pending
Sodium Pending
Potassium Pending
Chloride Pending
Carbon Dioxide Pending
BUN Pending
Creatinine Pending
Glucose Pending
Calcium Pending
Vital Signs:
Vital Signs
Temp Pulse Resp BP Pulse Ox
98.5 F 108 18 93/56 96
12/13/23 03:36 12/13/23 03:36 12/13/23 03:36 12/13/23 03:36 12/13/23 03:36
I&O
12/12/23 12/13/23 12/14/23
06:59 06:59 06:59
Intake Total 1760 / 1760 820 / 820
Output Total 700 / 700 600 / 600
Balance 1060 / 1060 220 / 220
Review of Systems
-
History Source: Patient, Family (met with both daughters yesterday and called Shauna to update today) and Coordinated Provider
EENT: Reports No Symptoms Reported
Respiratory: Reports No Symptoms
Cardiac: Reports No Symptoms
Abdomen/GI: Reports No Symptoms and Anorexia (post op); Denies Abdominal Pain, Nausea or Vomiting
Musculoskeletal: Reports Joint Pain (Rt hip)
Physical Exam
-
General: Well Developed, Well Nourished (thin), No Apparent Distress and Other (more awake this morning)
HEENT: Normocephalic and Atraumatic
Respiratory: Clear to Auscultation (noted bibasilar atelectatic rales that decrease with repeated deep breaths) and Rales (atelectatic basilar rales); Negative Wheezes or Rhonchi
Cardiac: S1/S2 and Irregular Rhythm
GI: Nontender and Nondistended
Musculoskeletal: No Clubbing, No Cyanosis and No Edema
Skin: Warm and Dry
Neuro: Awake, Alert and Oriented
[2023-12-13 07:46] LABS: Blood Urea Nitrogen 18 mg/dl (7-17); Carbon Dioxide 27 mmol/L (22-30); Estimated Creatinine Clearance 51 ml/min; eGFR > 60.00
[2023-12-13 07:49] LABS: % Basophils 0.4 % (0-2); % Immature Granulocytes 0.5 % (0-0.5); % Lymphocytes 13.5 % (20.5-51.1); % Monocytes 17.6 % (1.7-9.3); Absolute Eosinophils 0.1 10^3/uL (0-0.7); Absolute Lymphocytes 0.8 10^3/uL (1.2-3.4); Absolute Neutrophils 3.7 10^3/uL (1.4-6.5); Hematocrit 20.7 % (37.0-47.0); Mean Corp Hgb Conc. 33.8 g/dL (33.0-37.0); Mean Corpuscular Hgb 26.3 pg (27.0-31.0); Mean Corpuscular Volume 77.8 fL (81.0-99.0); Mean Platelet Volume 10.4 fL (7.4-10.4); Nucleated Red Blood Cells % 0 %; Platelet Count 128 10^3/uL (130-400); Red Blood Cell Count 2.66 10^6/uL (4.20-5.40); Red Cell Dist. Width 15.6 % (11.5-14.5); White Blood Cell Count 5.6 10^3/uL (4.8-10.8)
[2023-12-13 08:00] LABS: Calcium 8.4 mg/dl (8.4-10.2); Chloride 104 mmol/L (98-107); Glucose 101 mg/dl (70-99); Potassium 3.7 mmol/L (3.5-5.1); Sodium 133 mmol/L (135-145)
[2023-12-13] MEDS: SENOKOT 17.2 MG PO ×2 (08:17→20:11)
[2023-12-13] MEDS: COLACE 100 MG PO ×2 (08:18→20:11)
[2023-12-13] MEDS: LASIX 40 MG PO (08:18)
[2023-12-13] MEDS: LIPITOR 10 MG PO (08:18)
[2023-12-13] MEDS: VITAMIN D3 (cholecalciferol) 25 MCG PO (08:18)
--- NOTE | 2023-12-13 12:09 | W.PN.ORTHO ---
Today's Communication / Plan
-
POD#3 post right ONI conversion
-WBAT RLE.
-PT/OT to tolerance. THPs. Abductor pillow at rest
-Xarelto resumed for DVT ppx, per primary
-Continue pain regimen. Avoid narcs if possible. ice to right hip
-Appreciate case management efforts in d/c planning- plan for SNF
-Aquacel dressing to remain in place x 1 week. [place] to be removed 2 weeks post op.
-If chris removed at facility, f/u in office in 4 weeks for repeat x-rays.
-Ortho to follow along.
Assessment
.
Distal Motor Intact: Yes
Dressing:
Clean, dry and intact. Mild strikethrough aquacel right hip
Assessment:
POD#3 Right ONI conversion
Calf soft, nontender
Plan
.
Surgery / Date: Right hip conversion ONI December 09 ([facility])
DVT Prophylaxis: Other (Xarelto)
Activity:
Out of bed. WBAT RLE on walker/assistance
PT/OT, THPs x 10-12 weeks
Discharge Plan: SNF (per CM)
Subjective
.
.:
Patient resting comfortably. Symptomatic anemia this AM. Currently receiving a unit PRBC. Daughter at bedside
Vital Signs and Labs
.
Vital Signs and Labs:
Lab Results
12/13/23 05:55
12/13/23 05:55
Temp Pulse Resp BP Pulse Ox
97.3 F 98 18 100/57 97
12/13/23 11:25 12/13/23 11:25 12/13/23 11:25 12/13/23 11:25 12/13/23 11:25
Non-invasive Hgb result: 9.6
[2023-12-13] MEDS: TOPROL XL 25 MG PO (14:56)
[2023-12-13] MEDS: PEPCID 20 MG PO (20:11)
[2023-12-13] MEDS: D5/0.9% SODIUM CHLORIDE 1000 IV (20:20)
[2023-12-14] VITALS (7 sets, daily range): BP systolic 94–116; BP diastolic 50–72; PULSE 97–153; O2SAT 97
[2023-12-14] MEDS: TYLENOL PO ×2 (04:32)
--- NOTE | 2023-12-14 04:46 | PTCARENOTE ---
Pt slept poorly throughout shift and requiring reorientation throughout shift. Pt pain controlled with pain medications with more mobility with turns and repositioning.
[2023-12-14 06:21] LABS: % Basophils 0.4 % (0-2); % Eosinophils 2.1 % (0-6); % Immature Granulocytes 0.7 % (0-0.5); % Lymphocytes 14.4 % (20.5-51.1); % Monocytes 13.7 % (1.7-9.3); % Neutrophils 68.7 % (42.2-75.2); Absolute Eosinophils 0.2 10^3/uL (0-0.7); Absolute Immature Granulocytes 0.1 10^3/uL (0-0.05); Absolute Neutrophils 4.9 10^3/uL (1.4-6.5); Hematocrit 23.4 % (37.0-47.0); Hemoglobin 7.9 g/dL (12.0-16.0); Mean Corp Hgb Conc. 33.8 g/dL (33.0-37.0); Mean Corpuscular Hgb 26.5 pg (27.0-31.0); Mean Corpuscular Volume 78.5 fL (81.0-99.0); Mean Platelet Volume 9.9 fL (7.4-10.4); Nucleated Red Blood Cells % 0 %; Platelet Count 152 10^3/uL (130-400); Red Blood Cell Count 2.98 10^6/uL (4.20-5.40); Red Cell Dist. Width 15.9 % (11.5-14.5); White Blood Cell Count 7.1 10^3/uL (4.8-10.8)
[2023-12-14 06:50] LABS: Blood Urea Nitrogen 18 mg/dl (7-17); Calcium 8.5 mg/dl (8.4-10.2); Carbon Dioxide 28 mmol/L (22-30); Chloride 102 mmol/L (98-107); Estimated Creatinine Clearance 51 ml/min; Glucose 93 mg/dl (70-99); Potassium 3.3 mmol/L (3.5-5.1); Sodium 134 mmol/L (135-145); eGFR > 60.00
[2023-12-14] MEDS: SENOKOT 17.2 MG PO ×2 (08:37→20:26)
[2023-12-14] MEDS: TYLENOL 650 MG PO ×4 (08:37→20:26)
[2023-12-14] MEDS: COLACE 100 MG PO ×2 (08:38→20:27)
[2023-12-14] MEDS: LASIX PO (08:38)
[2023-12-14] MEDS: VITAMIN D3 (cholecalciferol) 25 MCG PO (08:38)
[2023-12-14] MEDS: LIPITOR 10 MG PO (08:39)
--- NOTE | 2023-12-14 10:24 | W.PN.ORTHO ---
Today's Communication / Plan
-
POD#4 post right ONI conversion
-WBAT RLE.
-PT/OT to tolerance. THPs. Abductor pillow at rest
-Xarelto resumed for DVT ppx, per primary
-Continue pain regimen. Avoid narcs if possible. ice to right hip
-Appreciate case management efforts in d/c planning- plan for SNF
-Aquacel dressing to remain in place x 1 week. [place] to be removed 2 weeks post op.
-If chris removed at facility, f/u in office in 4 weeks for repeat x-rays.
-Ortho to sign off for now, please reengage with any pertinent questions prior to D/c if necessary
Assessment
.
Distal Motor Intact: Yes
Dressing:
Clean, dry and intact. Mild strikethrough noted, contained
Assessment:
POD#4 Right ONI conversion
Calf soft, nontender
Plan
.
Surgery / Date: Right hip conversion NOI December 09 ([facility])
DVT Prophylaxis: Other (Xarelto)
Activity:
Out of bed. WBAT on walker/assistance
PT/OT, THPs x 10-12 weeks
Discharge Plan: SNF
Subjective
.
.:
Patient resting comfortably. Feeling better this AM with Hgb jump to 7.9
Vital Signs and Labs
.
Vital Signs and Labs:
Lab Results
12/14/23 05:28
12/14/23 05:28
Temp Pulse Resp BP Pulse Ox
97.5 F 84 18 97/55 97
12/14/23 07:05 12/14/23 07:05 12/14/23 07:05 12/14/23 07:05 12/14/23 07:05
Non-invasive Hgb result: 8.2
[2023-12-14] MEDS: ULTRAM 25 MG PO (13:50)
--- NOTE | 2023-12-14 14:31 | W.PN.HOSP.TC ---
Today's Communication/Plan
-
follow CBC, BMP
KCL supplement
Xarelto placed on hold, unclear timing of resumption
Assessment / Plan
Assessment / Plan
1. Right Hip Fracture - internally fixated intertrochanteric fracture of the RIGHT. Pain with reduced ROM.
- held anticoagulation -xarelto was washout and resumed 12/11
when resumed Hgb was 9.5, by morning of 12/12 was 7.0. Xarelto was stopped and pt was transfused 1 unit of blood. Hgb today was 7.9
- pain control, prolonged sedation from anesthesia, hopefully now beginning to resolve, she is definitely more awake, remains with marginal appetite
- PT/OT post op.
- post op day #4 (12/09)
pain has lessened, no appetite. Will order Ensure
Hgb 11.7-->10.2-->9.5-->7.0-->7.9
Nursing noted rt leg internally rotated, asked nursing to contact ortho
Analgesic changed from Oxycodone to Tramadol due to excess sedation exacerbated by Oxycodone, appears less sedated, hopefully, pt will start to eat and can increase activity with planned dc to SNF
2. AFIB - Permanent AFIB. Rate is appropriate.
- BP generally on low side 96/50, will continue metoprolol, but put holding parameters in place (most recent reading 107/53)
Echo: Normal LV size and function with no regional wall motion abnormalities.
LVEF is 55 to 60% by visual estimation.
Normal right ventricular size and function.
S/p MVR with bioprosthetic tissue valve; peak/mean gradients across the mitral
valve are 8/4 mmHg. Mild mitral regurgitation.
Moderate to severe aortic stenosis.
Moderate to severe tricuspid regurgitation.
Estimated pulmonary artery pressure of 37 mmHg, assuming a right atrial
pressure of 3 mmHg.
No prior study available for comparison.
3. Trop elevation - Non-ischemic myocardial injury versus mild rhabdo. No chest pain.
-downtrended. 0.043-->0.044-->0.031
4. CK elevation - Unclear how long she was on the ground but had mild rhabdo w/o KENDRA.
- will resume Lasix and slow IVF
- was given 500 ml bolus, IVF ordered perioperatively, will slow rate, stop once she is tolerating oral. Needed to increase rate for short time due to low BP, better today
- encourage po intake.
BUN/Creat 25/0.7-->17/0.7-->20/0.7-->18/0.7
5. 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
6. Traumatic Rhabdomyolysis
CPK 605-->479-->50
7. Acute Blood loss anemia, perioperatively, mild
Hgb 12.9-->11.3-->10.2-->9.5-->7.0-gave 1 unit PRBC->7.9
8.HAPU for R buttocks stage 2 pressure injury.
R lower gluteal fold linear stage 2 pressure injury suspect r/t her Denis catheter.
9. Mild hypokalemia
will supplement
DVT PPX -was on lovenox per ortho, now stopped.
met with dgts 12/11, code status changed to DNR
Dgt Shauna updated by phone 12/12 and made aware of drop in Hgb and need to stop Xarelto
Anticipated Discharge: > 48 hours
Subjective/Interval History
-
Date of Service: December 14, 2023
Remains weak, but more alert today
Objective Data
-
Labs:
Laboratory Results
12/14/23
05:28
WBC 7.1
Hgb 7.9 L
Hct 23.4 L
Plt Count 152
Sodium 134 L
Potassium 3.3 L
Chloride 102
Carbon Dioxide 28
BUN 18 H
Creatinine 0.7
Glucose 93
Calcium 8.5
Vital Signs:
Vital Signs
Temp Pulse Resp BP Pulse Ox
98.3 F 90 18 96/50 100
12/14/23 11:00 12/14/23 11:00 12/14/23 11:00 12/14/23 11:00 12/14/23 11:00
I&O
12/13/23 12/14/23 12/15/23
06:59 06:59 06:59
Intake Total 820 / 820 1720 / 1720
Output Total 600 / 600
Balance 220 / 220 1720 / 1720
Review of Systems
-
History Source: Patient and Coordinated Provider
EENT: Reports No Symptoms Reported
Respiratory: Reports No Symptoms
Cardiac: Reports No Symptoms
Abdomen/GI: Reports No Symptoms and Anorexia (post op); Denies Abdominal Pain, Nausea or Vomiting
Musculoskeletal: Reports Joint Pain (Rt hip)
Physical Exam
-
General: Well Developed, Well Nourished (thin), No Apparent Distress and Other (more awake this morning)
HEENT: Normocephalic and Atraumatic
Respiratory: Clear to Auscultation (noted bibasilar atelectatic rales that decrease with repeated deep breaths) and Rales (atelectatic basilar rales); Negative Wheezes or Rhonchi
Cardiac: S1/S2 and Irregular Rhythm
GI: Nontender and Nondistended
Musculoskeletal: No Clubbing, No Cyanosis and No Edema
Skin: Warm and Dry
Neuro: Awake, Alert and Oriented
[2023-12-14] MEDS: TOPROL XL 25 MG PO (17:09)
[2023-12-14] MEDS: KCL 20 MEQ PO (20:27)
[2023-12-14] MEDS: PEPCID 20 MG PO (20:27)
[2023-12-15] VITALS (8 sets, daily range): BP systolic 98–117; BP diastolic 50–73
[2023-12-15] MEDS: TYLENOL PO ×2 (00:04→04:26)
--- NOTE | 2023-12-15 01:42 | PTCARENOTE ---
varies between afib and sinus with frequent pacs's- afebrile- ax1-2 more confused at night- - inc of large amount of bm- abductor pillow in place- maintained on turn schedule
[2023-12-15] MEDS: SENOKOT 17.2 MG PO (07:37)
[2023-12-15] MEDS: COLACE 100 MG PO (07:37)
[2023-12-15] MEDS: KCL 20 MEQ PO (07:37)
[2023-12-15] MEDS: LIPITOR 10 MG PO (07:37)
[2023-12-15] MEDS: TYLENOL 650 MG PO ×5 (07:38→23:21)
[2023-12-15] MEDS: LASIX 40 MG PO (07:38)
[2023-12-15] MEDS: VITAMIN D3 (cholecalciferol) 25 MCG PO (07:38)
[2023-12-15 08:17] LABS: % Basophils 0.5 % (0-2); % Eosinophils 3.1 % (0-6); % Immature Granulocytes 1.2 % (0-0.5); % Lymphocytes 13.3 % (20.5-51.1); % Monocytes 15.5 % (1.7-9.3); % Neutrophils 66.4 % (42.2-75.2); Absolute Eosinophils 0.2 10^3/uL (0-0.7); Absolute Immature Granulocytes 0.1 10^3/uL (0-0.05); Absolute Lymphocytes 0.8 10^3/uL (1.2-3.4); Absolute Monocytes 0.9 10^3/uL (0.1-0.6); Absolute Neutrophils 3.9 10^3/uL (1.4-6.5); Hematocrit 24.3 % (37.0-47.0); Hemoglobin 8.1 g/dL (12.0-16.0); Mean Corp Hgb Conc. 33.3 g/dL (33.0-37.0); Mean Corpuscular Hgb 27.1 pg (27.0-31.0); Mean Corpuscular Volume 81.3 fL (81.0-99.0); Nucleated Red Blood Cells % 0 %; Platelet Count 174 10^3/uL (130-400); Red Blood Cell Count 2.99 10^6/uL (4.20-5.40); Red Cell Dist. Width 16.4 % (11.5-14.5); White Blood Cell Count 5.9 10^3/uL (4.8-10.8)
[2023-12-15 08:41] LABS: Blood Urea Nitrogen 19 mg/dl (7-17); Calcium 8.7 mg/dl (8.4-10.2); Carbon Dioxide 27 mmol/L (22-30); Chloride 102 mmol/L (98-107); Estimated Creatinine Clearance 51 ml/min; Glucose 84 mg/dl (70-99); Sodium 136 mmol/L (135-145); eGFR > 60.00
--- NOTE | 2023-12-15 12:42 | W.PN.HOSP.TC ---
Today's Communication/Plan
-
trend cbc
pt/ot
Assessment / Plan
Assessment / Plan
1. Right Hip Fracture - internally fixated intertrochanteric fracture of the RIGHT. Pain with reduced ROM.
- held anticoagulation -xarelto was washout and resumed 12/11
-when resumed Hgb was 9.5, by morning of 12/12 was 7.0. Xarelto was stopped and pt was transfused 1 unit of blood. Hgb today was 8.1. If hgb remains stable restart xarelto as hx of afib
- pain control,
- PT/OT post op.
Analgesic changed from Oxycodone to Tramadol due to excess sedation exacerbated by Oxycodone, appears less sedated, hopefully, pt will start to eat and can increase activity with planned dc to SNF
2. AFIB - Permanent AFIB. Rate is appropriate.
-Cont metoprolol
-monitor on tele
3. Trop elevation - Non-ischemic myocardial injury versus mild rhabdo. No chest pain.
-downtrended. 0.043-->0.044-->0.031
4. CK elevation - Unclear how long she was on the ground but had mild rhabdo w/o KENDRA.
- will resume Lasix and slow IVF
- was given 500 ml bolus, IVF ordered perioperatively, will slow rate, stop once she is tolerating oral. Needed to increase rate for short time due to low BP, better today
- encourage po intake.
BUN/Creat 25/0.7-->17/0.7-->20/0.7-->18/0.7
5. 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
6. Traumatic Rhabdomyolysis
CPK 605-->479-->50
7. Acute Blood loss anemia, perioperatively, mild
Hgb 12.9-->11.3-->10.2-->9.5-->7.0-gave 1 unit PRBC->7.9
8.HAPU for R buttocks stage 2 pressure injury.
R lower gluteal fold linear stage 2 pressure injury suspect r/t her Denis catheter.
9. Mild hypokalemia
will supplement
dvt ppx-scds
DNDR/DNI per Dr. Ludwig d/w wt family.
Anticipated Discharge: 24 - 48 hours
Subjective/Interval History
-
Date of Service: December 15, 2023
states of mild hip pain
having bm
Objective Data
-
Labs:
Laboratory Results
12/15/23
06:20
WBC 5.9
Hgb 8.1 L
Hct 24.3 L
Plt Count 174
Sodium 136
Potassium 4.0
Chloride 102
Carbon Dioxide 27
BUN 19 H
Creatinine 0.7
Glucose 84
Calcium 8.7
Vital Signs:
Vital Signs
Temp Pulse Resp BP Pulse Ox
98.5 F 93 18 98/51 95
12/15/23 11:30 12/15/23 11:30 12/15/23 11:30 12/15/23 11:30 12/15/23 11:30
I&O
12/14/23 12/15/23 12/16/23
06:59 06:59 06:59
Intake Total 1720 / 1720 1180 / 1180
Balance 1720 / 1720 1180 / 1180
Physical Exam
-
General: No Apparent Distress
HEENT: Normocephalic and Atraumatic
Respiratory: Clear to Auscultation (frontal ); Negative Wheezes or Rhonchi
Cardiac: S1/S2 and Irregular Rhythm
GI: Soft, Nontender, Nondistended and Normal Bowel Sounds
Musculoskeletal: No Clubbing, No Cyanosis and No Edema
Skin: Warm and Dry
Neuro: Awake, Alert and Oriented
Psych: Calm
[2023-12-15] MEDS: NSS 500 IV (15:31)
--- NOTE | 2023-12-15 16:14 | CM ---
Hypotensive, tachy @ 116, monitoring CBC. Discharge Plan of Care: STR when medically cleared. Referrals previously forwarded. Will need insurance auth.
--- NOTE | 2023-12-15 16:42 | PTCARENOTE ---
1532: Patient HR sustaining in the 120's. Patient resting comfortably in bed and asymptomatic. BP 98/61. PRN Lopressor hold parameters of SBP <100. Dr. Drew made aware. Fluids ordered. Care ongoing at this time.
1614: BP rechecked with a reading of 98/52 and HR sustaining in the 110's-120's. Patient asymptomatic and resting comfortably in bed. Care ongoing at this time.
[2023-12-15] MEDS: TOPROL XL 25 MG PO (17:54)
[2023-12-15] MEDS: FLOMAX 0.4 MG PO (20:19)
[2023-12-15] MEDS: PEPCID 20 MG PO (20:20)
[2023-12-15] MEDS: COLACE PO (21:47)
[2023-12-16] VITALS (41 sets, daily range): BP systolic 73–140; BP diastolic 45–99
[2023-12-16] MEDS: LOPRESSOR 2.5 MG IV (02:53)
[2023-12-16] MEDS: TYLENOL 650 MG PO ×4 (04:12→20:19)
[2023-12-16 07:18] LABS: Hemoglobin 8.8 g/dL (12.0-16.0)
[2023-12-16] MEDS: LASIX PO (07:48)
[2023-12-16] MEDS: COLACE PO (07:49)
[2023-12-16] MEDS: VITAMIN D3 (cholecalciferol) 25 MCG PO (07:51)
[2023-12-16] MEDS: LIPITOR 10 MG PO (07:51)
[2023-12-16] MEDS: KCL 20 MEQ PO (07:51)
--- NOTE | 2023-12-16 10:09 | PTCARENOTE ---
Per nightshift RN patient bladder scanned at 0630 for 125 cc. Patient bladder scanned at 1009 for 283 cc.
--- NOTE | 2023-12-16 10:54 | W.PN.HOSP.TC ---
Today's Communication/Plan
-
Monitor HR/BP
Restart xarelto
Assessment / Plan
Assessment / Plan
Right Hip Fracture - internally fixated intertrochanteric fracture of the RIGHT. Pain with reduced ROM.
- held anticoagulation -xarelto was washout and resumed 12/11
-when resumed Hgb was 9.5, by morning of 12/12 was 7.0. Xarelto was stopped and pt was transfused 1 unit of blood. Hgb today was 8.8 and xarelto restarted after d/w wtih pt dtr at bedside who verbalized understanding.
- pain control,
- PT/OT post op.
-Analgesic changed from Oxycodone to Tramadol due to excess sedation exacerbated by Oxycodone, appears less sedated, hopefully, pt will start to eat and can increase activity with planned dc to SNF
AFIB - Permanent AFIB.
-Cont metoprolol
-monitor on tele
-If persistently tachy may need cards input as limited options due to soft BP.
Trop elevation - Non-ischemic myocardial injury versus mild rhabdo. No chest pain.
-downtrended. 0.043-->0.044-->0.031
CK elevation - Unclear how long she was on the ground but had mild rhabdo w/o KENDRA.
- will resume Lasix and slow IVF
- was given 500 ml bolus, IVF ordered perioperatively, will slow rate, stop once she is tolerating oral. Needed to increase rate for short time due to low BP, better today
- encourage po intake.
-BUN/Creat 25/0.7-->17/0.7-->20/0.7-->18/0.7
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
Traumatic Rhabdomyolysis
-CPK 605-->479-->50
Acute Blood loss anemia likely 2/2 surgery and inflammatory reaction post op
-Hgb at 8.8 s/p 1u of PRBC so far. Restart xarelto.
HAPU for R buttocks stage 2 pressure injury.
R lower gluteal fold linear stage 2 pressure injury suspect r/t her Denis catheter.
Mild hypokalemia
-will supplement
Mitral valve replacement with mild MR
Moderate to sever aortic stenosis
Moderate to severe TR
-Lasix held this am due to soft bp
Urinary retention
-required straight cath on 12/14
-cont the protocol
-Mobility should help
dvt ppx-scds/xarelto
DNDR/DNI per Dr. Ludwig d/w wt family.
d/w with daughter at bedside in details.
Anticipated Discharge: 24 - 48 hours
Subjective/Interval History
-
Date of Service: December 16, 2023
sitting in chair
Denies lightheaded or dizziness or palpitations
Objective Data
-
Labs:
Laboratory Results
12/16/23
06:31
Hgb 8.8 L
Vital Signs:
Vital Signs
Temp Pulse Resp BP Pulse Ox
98.2 F 99 17 94/56 96
12/16/23 06:56 12/16/23 06:56 12/16/23 06:56 12/16/23 08:16 12/16/23 06:56
I&O
12/15/23 12/16/23 12/17/23
06:59 06:59 06:59
Intake Total 1180 / 1180 1340 / 1340
Output Total 1050 / 1050
Balance 1180 / 1180 290 / 290
Data Reviewed
-
Total Time Spent with Patient (in minutes): 58
[2023-12-16 11:25] LABS: Glucose - Point of Care 137 mg/dl (70-99)
--- NOTE | 2023-12-16 11:45 | W.PN.UPDATE ---
Update Note
Progress Note Update
Patient was sitting in chair and felt lightheaded per daughter. Daughter informed RN manual blood pressure was 57/36. Rapid response was called. Patient was placed in Trendelenburg position. 500 cc IV fluid bolus was ordered. Patient felt
symptomatic with lightheadedness. Denies any chest pain or palpitations. Repeat labs ordered. Lactic acid ordered. EKG was noted to be fortunately converted to normal sinus rhythm. Blood pressure improved SBP 98. 500 cc of normal saline bolus
was ordered. Plan will be to transfer patient to IMU. Jabari draper. Discussed with patient daughter about events. Per daughter patient with rash with NyQuil and not skin peeling. Per daughter patient has not taken NyQuil in a long period of time.
States she is allergic to ingredients and NyQuil and not exactly sure which one.
Discussed With RN and rapid response team.
--- NOTE | 2023-12-16 11:47 | PTCARENOTE ---
Addendum entered by Breana Saldana RN 12/16/23 11:51:
Repeat BP 81/60
Original Note:
1120: Rapid response called due to patient having a BP of 57/36 and patient stated that she 'feels like she is going to pass out'. Dr. Drew to bedside. EKG done and fluid bolus started per Dr. Drew. Rapid response team at bedside. Repeat BP
Labs done. Patient upgraded to IMU level of care. No IMU beds available therefore patient going to ICU. Patient transported by PCB DESIGN ENGINEER and nursing supervisor refractory products. Report called to PCB DESIGN ENGINEER.
[2023-12-16 11:50] LABS: % Basophils 0.3 % (0-2); % Immature Granulocytes 0.7 % (0-0.5); % Lymphocytes 14.7 % (20.5-51.1); % Monocytes 10.6 % (1.7-9.3); % Neutrophils 72.7 % (42.2-75.2); Absolute Eosinophils 0.1 10^3/uL (0-0.7); Absolute Immature Granulocytes 0.1 10^3/uL (0-0.05); Absolute Lymphocytes 1.4 10^3/uL (1.2-3.4); Absolute Neutrophils 6.8 10^3/uL (1.4-6.5); Hematocrit 26.9 % (37.0-47.0); Hemoglobin 9.1 g/dL (12.0-16.0); Mean Corp Hgb Conc. 33.8 g/dL (33.0-37.0); Mean Corpuscular Hgb 27.2 pg (27.0-31.0); Mean Corpuscular Volume 80.3 fL (81.0-99.0); Mean Platelet Volume 9.3 fL (7.4-10.4); Nucleated Red Blood Cells % 0 %; Platelet Count 206 10^3/uL (130-400); Red Blood Cell Count 3.35 10^6/uL (4.20-5.40); Red Cell Dist. Width 16.7 % (11.5-14.5); White Blood Cell Count 9.4 10^3/uL (4.8-10.8)
[2023-12-16 12:03] LABS: Lactic Acid 2.2 mmol/L (0.7-2.0)
[2023-12-16 12:04] LABS: ALT (SGPT) 20 U/L (0-35); AST (SGOT) 32 U/L (14-36); Albumin 3.5 g/dl (3.5-5.0); Alkaline Phosphatase 79 U/L (38-126); Blood Urea Nitrogen 19 mg/dl (7-17); Calcium 9.2 mg/dl (8.4-10.2); Carbon Dioxide 28 mmol/L (22-30); Chloride 103 mmol/L (98-107); Estimated Creatinine Clearance 39 ml/min; Glucose 131 mg/dl (70-99); Potassium 3.9 mmol/L (3.5-5.1); Sodium 137 mmol/L (135-145); Total Bilirubin 1.9 mg/dl (0.2-1.3); Total Protein 5.7 g/dl (6.3-8.2); eGFR > 60.00
--- NOTE | 2023-12-16 12:04 | CM ---
Patient transferred to IMU.
[2023-12-16 12:20] LABS: Glucose - Point of Care 74 mg/dl (70-99)
[2023-12-16] MEDS: LEVOPHED 250 IV (12:35)
--- NOTE | 2023-12-16 13:12 | PTCARENOTE ---
patient received post ENGINEERING TECHNICIAN PARKING into room 3357. IMU level of care. patient confused, oriented to self only. denies pain. monitor sinus tach with pac, pvc. short burst afib noted. feet and hands mottled. lungs diminished, on 2 liters nasal cannula. unable
to obtain pulse oximeter reading. warm blankets applied. blood pressures as noted. communicated with hospitalist regarding blood pressures and assessments. orders received. skin care, wound care as documented. daughter at bedside. bed alarm
activated. call perez in hand. levophed initiated per orders. report received from [facility] RN
--- NOTE | 2023-12-16 13:35 | PTCARENOTE ---
patient restless, agitated, visual hallucinations. found attempting to pull out IV, pulled off monitor. hospitalist updated. orders received. mitts applied. levophed adjustment per work list for MAP<65
--- NOTE | 2023-12-16 15:35 | PTCARENOTE ---
patient more agitated when wearing mitts. video monitoring continued. patient 'folding laundry(wash cloths)'. refusing anything orally
[2023-12-16] MEDS: TYLENOL PO (16:05)
--- NOTE | 2023-12-16 16:34 | PTCARENOTE ---
patient with increased tachycardia. improved with wean of Levophed. assisted patient, very poor oral intake. family at bedside. updated with changes, plan of care. hospitalist updated by ange text regarding heart rate
[2023-12-16] MEDS: XARELTO 15 MG PO (17:16)
[2023-12-16] MEDS: TOPROL XL 25 MG PO (17:58)
--- NOTE | 2023-12-16 18:02 | PTCARENOTE ---
bladder scan, straight cath per work list. hospitalist updated. urine specimen sent, urine pungent, cloudy and tea colored. labs sent. Levophed remains off, Toprol given per hospitalist, newly ordered parameters.
[2023-12-16 18:06] LABS: Urine Albumin Trace (Neg - Trace); Urine Bilirubin 1+ (Negative); Urine Character Very Cloudy (Clear); Urine Color Yellow; Urine Glucose Negative (Negative); Urine Ketone Trace (Negative); Urine Leukocyte 2+ (Negative); Urine Nitrite Positive (Negative); Urine Occult Blood 1+ (Negative); Urine Urobilinogen 1+ (Neg - 1+)
[2023-12-16 18:18] LABS: Lactic Acid 1.8 mmol/L (0.7-2.0)
[2023-12-16 18:21] LABS: Urine Bacteria Many (Negative); Urine Red Blood Cell 0-2 /HPF (0-2); Urine White Cell 21-25 /HPF (0-5)
--- NOTE | 2023-12-16 19:47 | PTCARENOTE ---
Pt received in bed, conversing with grand son at the bedside. Pt AAOx2, disoriented to place, participates in mildly confused conversation; denies pain. Pt Afib on the monitor, HR between 100-110's. Neurovascularly intact with palpable pulses, RLE
pink and cool. POX 100% on 2L NC. Pt remains off Levophed gtt, BP 106/59 (MAP 74). Remainder of assessment as documented. Pt's family at the bedside updated on POC for the evening. Medsitter and bed alarm in place for pt safety.
[2023-12-16] MEDS: PEPCID 20 MG PO (20:19)
[2023-12-17] VITALS (61 sets, daily range): BP systolic 64–122; BP diastolic 39–89; PULSE 83; O2SAT 98
[2023-12-17] MEDS: TYLENOL PO ×4 (00:20→23:29)
[2023-12-17 05:33] LABS: % Basophils 0.3 % (0-2); % Eosinophils 1.2 % (0-6); % Lymphocytes 12.3 % (20.5-51.1); % Monocytes 11.6 % (1.7-9.3); % Neutrophils 73.6 % (42.2-75.2); Absolute Eosinophils 0.1 10^3/uL (0-0.7); Absolute Immature Granulocytes 0.1 10^3/uL (0-0.05); Absolute Lymphocytes 0.7 10^3/uL (1.2-3.4); Absolute Monocytes 0.7 10^3/uL (0.1-0.6); Absolute Neutrophils 4.2 10^3/uL (1.4-6.5); Hematocrit 27.4 % (37.0-47.0); Hemoglobin 8.9 g/dL (12.0-16.0); Mean Corp Hgb Conc. 32.5 g/dL (33.0-37.0); Mean Corpuscular Hgb 27.1 pg (27.0-31.0); Mean Corpuscular Volume 83.3 fL (81.0-99.0); Mean Platelet Volume 9.2 fL (7.4-10.4); Nucleated Red Blood Cells % 0 %; Platelet Count 200 10^3/uL (130-400); Red Blood Cell Count 3.29 10^6/uL (4.20-5.40); Red Cell Dist. Width 17.1 % (11.5-14.5); White Blood Cell Count 5.8 10^3/uL (4.8-10.8)
[2023-12-17 05:58] LABS: Blood Urea Nitrogen 18 mg/dl (7-17); Calcium 8.8 mg/dl (8.4-10.2); Carbon Dioxide 28 mmol/L (22-30); Chloride 105 mmol/L (98-107); Estimated Creatinine Clearance 51 ml/min; Glucose 103 mg/dl (70-99); Potassium 3.7 mmol/L (3.5-5.1); Sodium 137 mmol/L (135-145); eGFR > 60.00
[2023-12-17 06:28] LABS: Cortisol, Random 16.6 ug/dl
[2023-12-17] MEDS: VITAMIN D3 (cholecalciferol) 25 MCG PO (08:15)
[2023-12-17] MEDS: TYLENOL 650 MG PO ×3 (08:15→21:45)
[2023-12-17] MEDS: LIPITOR 10 MG PO (08:15)
--- NOTE | 2023-12-17 08:31 | PTOTSP ---
Reviewed chart and noted pt was transferred to IMU/ICU yesterday following rapid response. PT/OT orders were NOT continued upon transfer. Will need new orders for PT and OT when pt is stable to resume therapy activity.
--- NOTE | 2023-12-17 10:15 | PTCARENOTE ---
Patient placed in chair position in bed. Encouraged PO intake. Breakfast and Ensure provided. Appetite poor. Patient eating with encouragement. VSS.
--- NOTE | 2023-12-17 11:19 | W.PN.HOSP.TC ---
Today's Communication/Plan
-
low dose midodrine
pt/ot
monitor BP
Hold lasix
Assessment / Plan
Assessment / Plan
Right Hip Fracture - internally fixated intertrochanteric fracture of the RIGHT. Pain with reduced ROM.
- held anticoagulation -xarelto was washout and resumed 12/11
-when resumed Hgb was 9.5, by morning of 12/12 was 7.0. Xarelto was stopped and pt was transfused 1 unit of blood. Hgb today was 8.9 and xarelto restarted after d/w [facility] pt dtr at bedside who verbalized understanding.
- pain control,
- PT/OT post op.
-Analgesic changed from Oxycodone to Tramadol due to excess sedation exacerbated by Oxycodone, appears less sedated, hopefully, pt will start to eat and can increase activity with planned dc to SNF
Shock likely multifactorial due to blood loss versus dehydration versus Lasix
-PLASTIC TECHNICIAN on 12/15 for severe symptomatic hypotension
-Status post IV fluid bolus and required Levophed for a brief amount of time.
-Off Levophed now. Will do trial of midodrine low-dose and monitor blood pressure closely.
-Hold Lasix for now.
AFIB - Permanent AFIB.
-Cont metoprolol
-monitor on tele
-If persistently tachy may need cards input as limited options due to soft BP.
Trop elevation - Non-ischemic myocardial injury versus mild rhabdo. No chest pain.
-downtrended. 0.043-->0.044-->0.031
CK elevation - Unclear how long she was on the ground but had mild rhabdo w/o KENDRA.
- was given 500 ml bolus, IVF ordered perioperatively, will slow rate, stop once she is tolerating oral. Needed to increase rate for short time due to low BP, better today
- encourage po intake.
-BUN/Creat 25/0.7-->17/0.7-->20/0.7-->18/0.7
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
Traumatic Rhabdomyolysis
-CPK 605-->479-->50
Acute Blood loss anemia likely 2/2 surgery and inflammatory reaction post op
-Hgb at 8.9 s/p 1u of PRBC so far. Restart xarelto.
HAPU for R buttocks stage 2 pressure injury.
R lower gluteal fold linear stage 2 pressure injury suspect r/t her Denis catheter.
Mild hypokalemia
-will supplement
Mitral valve replacement with mild MR
Moderate to sever aortic stenosis
Moderate to severe TR
-Lasix held this am due to soft bp
Urinary retention
-required straight cath on 12/14
-cont the protocol
-Mobility should help
dvt ppx-scds/xarelto
DNDR/DNI per Dr. Ludwig d/w wt family.
d/w with daughter at bedside in details.
Anticipated Discharge: > 48 hours
Subjective/Interval History
-
Date of Service: December 17, 2023
decrease appetite
Off levophed
Objective Data
-
Labs:
Laboratory Results
12/17/23
05:17
WBC 5.8
Hgb 8.9 L
Hct 27.4 L
Plt Count 200
Sodium 137
Potassium 3.7
Chloride 105
Carbon Dioxide 28
BUN 18 H
Creatinine 0.7
Glucose 103 H
Calcium 8.8
Vital Signs:
Vital Signs
Temp Pulse Resp BP Pulse Ox
97.7 F 96 18 96/60 98
12/17/23 07:49 12/17/23 11:00 12/17/23 11:00 12/17/23 11:00 12/17/23 08:28
I&O
12/16/23 12/17/23 12/18/23
06:59 06:59 06:59
Intake Total 1340 / 1340 1316 / 1316 480 / 480
Output Total 1050 / 1050 675 / 675
Balance 290 / 290 641 / 641 480 / 480
Physical Exam
-
General: No Apparent Distress
HEENT: Normocephalic and Atraumatic
Respiratory: Clear to Auscultation (frontal ); Negative Wheezes or Rhonchi
Cardiac: S1/S2 and Irregular Rhythm
GI: Soft, Nontender, Nondistended and Normal Bowel Sounds
Musculoskeletal: No Clubbing, No Cyanosis and No Edema
Skin: Warm and Dry
Neuro: Awake and Alert
Psych: Calm
Data Reviewed
-
Total Time Spent with Patient (in minutes): 56
--- NOTE | 2023-12-17 12:27 | CM ---
CM following re: discharge planning.
Reviewed pt's chart, met with pt and pt's daughter Shauna at bedside.
PT and OT continue to recommend SNF level of care. Pt's daughter stated she visited [facility], spoke to director cardiovascular there and they confirmed that pt will be accepted when medically stable.
CM spoke to [facility] director cardiovascular Kaley [phone], updated clinical requested and per Kaley pt most likely will be accepted as early as Friday and it will be confirmed after reviewing pt's updated clinical.
Pt will need an auth from[employer] for SNF level of care at [facility].
[facility]
Accepting MD: Aaron Simmons .
Updated pt's clinical faxed to [facility] via [employer]. Awaiting for final determination.
D/C plan: [facility] as early as Friday12/20/23.
CM will follow to assist pt with discharge to [facility].
[2023-12-17] MEDS: ProAmatine 2.5 MG PO (12:29)
--- NOTE | 2023-12-17 12:33 | PTCARENOTE ---
Patient oob in chair by PT. VSS. Chair alarm on, along with medsitter.
[2023-12-17] MEDS: LOPRESSOR 2.5 MG IV (13:10)
--- NOTE | 2023-12-17 14:14 | PTCARENOTE ---
Patient dizzy and minimally responsive in chair. BP 64/44. Patient placed safely back into bed. BP up to 80/60's. HR 80-90's. MD notified. Levophed gtt restarted. 500 bolus ordered and Midodrine dose to be increased to 10mg TID.
[2023-12-17] MEDS: LEVOPHED 250 IV (14:19)
[2023-12-17] MEDS: ROCEPHIN 1000 MG IV (14:19)
[2023-12-17] MEDS: STERILE WATER FOR INJECTION 10 ML IV (14:19)
[2023-12-17] MEDS: NSS 500 IV (14:38)
[2023-12-17] MEDS: NSS 1000 IV (16:13)
--- NOTE | 2023-12-17 16:16 | PTCARENOTE ---
Levophed off. IVFs initiated at 100 mL/hr.
[2023-12-17] MEDS: XARELTO 15 MG PO (18:00)
[2023-12-17] MEDS: ProAmatine 10 MG PO (18:00)
[2023-12-17] MEDS: TOPROL XL 25 MG PO (18:01)
--- NOTE | 2023-12-17 21:41 | PTCARENOTE ---
Received patient AAOx2, forgetful to place, [place], drowsy. Normal sinus 70s-80s with PACs and PVCs. BP 90s-100s. Trace edema on right side. Weak palpable pedal pulses bilaterally. 98% on room air, lung sounds diminished. Poor appetite, last BM today.
Incontinent, purewick applied. Right hip aquacell with old drainage. Foams on heels and sacrum. Daughter updated. NSS ongoing per order. PIVs patent, WNL.
[2023-12-17] MEDS: PEPCID 20 MG PO (21:45)
[2023-12-18] VITALS (30 sets, daily range): BP systolic 79–131; BP diastolic 45–91; PULSE 86–94; O2SAT 94; BMI 21.7
--- NOTE | 2023-12-18 00:28 | PTCARENOTE ---
Pressures 70s-80s/40s, CRUST SORTER notified, norepinephrine restarted to maintain MAP>65.
[2023-12-18] MEDS: NSS 1000 IV ×3 (02:23→22:30)
[2023-12-18] MEDS: TYLENOL PO ×3 (03:46→20:35)
[2023-12-18 06:34] LABS: % Basophils 0.6 % (0-2); % Immature Granulocytes 1.3 % (0-0.5); % Lymphocytes 17.5 % (20.5-51.1); % Monocytes 12.7 % (1.7-9.3); % Neutrophils 65.9 % (42.2-75.2); Absolute Eosinophils 0.1 10^3/uL (0-0.7); Absolute Immature Granulocytes 0.1 10^3/uL (0-0.05); Absolute Lymphocytes 1.2 10^3/uL (1.2-3.4); Absolute Monocytes 0.9 10^3/uL (0.1-0.6); Absolute Neutrophils 4.5 10^3/uL (1.4-6.5); Hematocrit 23.2 % (37.0-47.0); Hemoglobin 7.7 g/dL (12.0-16.0); Mean Corp Hgb Conc. 33.2 g/dL (33.0-37.0); Mean Corpuscular Hgb 27.1 pg (27.0-31.0); Mean Corpuscular Volume 81.7 fL (81.0-99.0); Mean Platelet Volume 9.8 fL (7.4-10.4); Nucleated Red Blood Cells % 0 %; Platelet Count 217 10^3/uL (130-400); Red Blood Cell Count 2.84 10^6/uL (4.20-5.40); Red Cell Dist. Width 17.7 % (11.5-14.5); White Blood Cell Count 6.9 10^3/uL (4.8-10.8)
[2023-12-18 06:49] LABS: Calcium 8.4 mg/dl (8.4-10.2); Carbon Dioxide 23 mmol/L (22-30); Estimated Creatinine Clearance 59 ml/min; Glucose 109 mg/dl (70-99); eGFR > 60.00
[2023-12-18 06:50] LABS: Blood Urea Nitrogen 17 mg/dl (7-17); Chloride 109 mmol/L (98-107); Potassium 3.9 mmol/L (3.5-5.1); Sodium 137 mmol/L (135-145)
[2023-12-18] MEDS: ProAmatine 10 MG PO ×3 (08:42→17:55)
[2023-12-18] MEDS: TYLENOL 650 MG PO ×2 (08:42→12:04)
[2023-12-18] MEDS: LIPITOR 10 MG PO (08:42)
[2023-12-18] MEDS: VITAMIN D3 (cholecalciferol) 25 MCG PO (08:42)
--- NOTE | 2023-12-18 11:13 | W.PN.HOSP.TC ---
Today's Communication/Plan
-
repeat H/H
wean off ivf/levophed
cont midodrine
PT/OT
Assessment / Plan
Assessment / Plan
General: No Apparent Distress
HEENT: Normocephalic and Atraumatic
Respiratory: Clear to Auscultation (frontal ); Negative Wheezes or Rhonchi
Cardiac: S1/S2 and Irregular Rhythm
GI: Soft, Nontender, Nondistended and Normal Bowel Sounds
Musculoskeletal: No Clubbing, No Cyanosis and No Edema, R hip aquacell dressing intact.
Skin: Warm and Dry
Neuro: Awake and Alert
Psych: Calm
Right Hip Fracture - internally fixated intertrochanteric fracture of the RIGHT. Pain with reduced ROM.
- held anticoagulation -xarelto was washout and resumed 12/11
-when resumed Hgb was 9.5, by morning of 12/12 was 7.0. Xarelto was stopped and pt was transfused 1 unit of blood. Drop in hgb likely dilutional effect. repeat h/h.
- pain control,
- PT/OT post op.
-Analgesic changed from Oxycodone to Tramadol due to excess sedation exacerbated by Oxycodone, appears less sedated, hopefully, pt will start to eat and can increase activity with planned dc to SNF
Shock likely multifactorial due to blood loss versus dehydration versus Lasix
-FISH FILLETER on 12/15 for severe symptomatic hypotension
-Status post IV fluid bolus and on levophed intermittently.
-midodrine started 10mg TID s/p IVF bolus and now on NS @100cc/hr. Plan to wean down IVF if bp can tolerate it.
-Hold Lasix for now.
AFIB - Permanent AFIB.
-Cont metoprolol
-monitor on tele
-If persistently tachy may need cards input as limited options due to soft BP.
Trop elevation - Non-ischemic myocardial injury versus mild rhabdo. No chest pain.
-downtrended. 0.043-->0.044-->0.031
CK elevation - Unclear how long she was on the ground but had mild rhabdo w/o KENDRA.
- was given 500 ml bolus, IVF ordered perioperatively, will slow rate, stop once she is tolerating oral. Needed to increase rate for short time due to low BP, better today
- encourage po intake.
-BUN/Creat 25/0.7-->17/0.7-->20/0.7-->18/0.7
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
Traumatic Rhabdomyolysis
-CPK 605-->479-->50
Acute Blood loss anemia likely 2/2 surgery and inflammatory reaction post op
-Hgb at 8.9 s/p 1u of PRBC so far. Restart xarelto.
HAPU for R buttocks stage 2 pressure injury.
R lower gluteal fold linear stage 2 pressure injury suspect r/t her Denis catheter.
Mild hypokalemia
-will supplement
Mitral valve replacement with mild MR
Moderate to sever aortic stenosis
Moderate to severe TR
-Lasix held this am due to soft bp
Urinary retention
-required straight cath on 12/14
-cont the protocol
-Mobility should help
E.coli UTI
-Started rocephin
dvt ppx-scds/xarelto
DNDR/DNI per Dr. Ludwig d/w [facility] family.
d/w with daughter at bedside in details.
Anticipated Discharge: > 48 hours
Subjective/Interval History
-
Date of Service: December 18, 2023
more awake and eating breakfast
denies R hip pain/soreness
Objective Data
-
Labs:
Laboratory Results
12/18/23 12/18/23
05:37 12:00
WBC 6.9
Hgb 7.7 L Pending
Hct 23.2 L Pending
Plt Count 217
Sodium 137
Potassium 3.9
Chloride 109 H
Carbon Dioxide 23
BUN 17
Creatinine 0.6
Glucose 109 H
Calcium 8.4
Vital Signs:
Vital Signs
Temp Pulse Resp BP Pulse Ox
97.9 F 100 18 94/59 94
12/18/23 07:30 12/18/23 11:00 12/18/23 11:00 12/18/23 11:00 12/18/23 10:48
I&O
12/17/23 12/18/23 12/19/23
06:59 06:59 06:59
Intake Total 1316 / 1316 2525.2 / 2629.0 744.6 / 744.6
Output Total 675 / 675 150 / 150
Balance 641 / 641 2375.2 / 2479.0 744.6 / 744.6
Data Reviewed
-
Total Time Spent with Patient (in minutes): 56
--- NOTE | 2023-12-18 11:56 | PTCARENOTE ---
Report given to TEMITOPE Charles. Room in process of being cleaned. Daughters at bedside. Updated on plan of care. Repeat H&H.
--- NOTE | 2023-12-18 12:30 | PTCARENOTE ---
Received patient from ICU in chair. Patient alert and oriented. Patient forgetful. Right hip dressing intact, patient denies any pain or discomfort. BP's soft, IV fluids infusing as ordered. Oriented patient to room and discussed plan of care.
Daughter in room at bedside. Will monitor.
[2023-12-18 12:40] LABS: Hematocrit 25.4 % (37.0-47.0); Hemoglobin 8.4 g/dL (12.0-16.0)
--- NOTE | 2023-12-18 12:46 | TRANSFER ---
Patient transported to room 3353 with belongings.
--- NOTE | 2023-12-18 14:53 | PN.CDI ---
CDI
- -
CDI:
Physician Documentation Request
Admit Date: 12/05/23 16:51
Dear Doctor Rajendra,
Please review the following and provide your response in the progress notes.
Clinical Indicators:
ED, 12/02
#Daughter states that patient was confused and urinating frequently last week.
#She was seen at urgent care 2 days ago and diagnosed with a UTI and
#...started on antibiotics. Daughter believes the antibiotic was Bactrim.
#Differential diagnosis includes but is not limited to: mechanical fall, syncope, fracture,
#...UTI, KENDRA, dehydration
#Periprosthetic fracture of hip, Elevated troponin, Altered mental status
Surgery, 12/09
#PROCEDURE:
#1. 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
#2. Removal of deeper buried implant (right hip nail).
12/12/23 15:04 - Patient Care Note
#Pt with increased confusion/ drowsiness and decreased responsiveness
#...while sitting up in the chair. Neuro assessment unchanged.
#Pt found to be hypotensive BP 75/45.
12/14/23 04:46 - Patient Care Note
#slept poorly throughout shift and requiring reorientation throughout shift.
12/15/23 01:42 - Patient Care Note
#...afebrile- ax1-2 more confused at night- -
12/16/23 13:12 - Patient Care Note
#...patient confused, oriented to self only.
#...feet and hands mottled. lungs diminished, on 2 liters nasal cannula.
#...bed alarm activated.
#...levophed initiated per orders. report received from 2 ade RN
12/16/23 13:35 - Patient Care Note
#patient restless, agitated, visual hallucinations. found attempting to pull out IV,
#...pulled off monitor.
#...levophed adjustment per work list for MAP<65
12/16/23 15:35 - Patient Care Note by Suellen Sanabria RN
#patient more agitated when wearing mitts. video monitoring continued.
#...patient 'folding laundry(wash cloths)'. refusing anything orally
12/16/23 18:02 - Patient Care Note
#bladder scan, straight cath per work list.
#urine specimen sent, urine pungent, cloudy and tea colored.
#Levophed remains off,
12/16/23 19:47 (created 12/16/23 21:17) - Patient Care Note
#Pt AAOx2, disoriented to place, participates in mildly confused conversation;
#POX 100% on 2L NC.
#Pt remains off Levophed gtt, BP 106/59 (MAP 74).
#Medsitter and bed alarm in place for pt safety.
12/17/23 14:14 - Patient Care Note
#Patient dizzy and minimally responsive in chair. BP 64/44.
#Levophed gtt restarted. 500 bolus ordered and Midodrine dose to be increased to 10mg TID.
PN, 12/17
E.coli UTI
-Started rocephin
Based on the above and your clinical assessment, please clarify the most likely etiology of the confusion/altered mental status.
Toxic metabolic encephalopathy, due to specific condition/s, such as metabolic derangements, infection, post op sedation/anesthesia etc.
Acute Delirium - indicate known or suspected etiology such as postoperative, due to opioids or other drugs etc. Can also indicate unknown or mixed etiologies.
Baseline Dementia - indicate type, such as Alzheimer's, senile, vascular, Lewy body etc., and any associated behavioral disturbances (aggressive, combative or violent behavior) if present
Other (please specify)
Use of terms such as suspected, likely, concern for, or probable (associated with a specific diagnosis that is being evaluated, monitored, or treated as if it exists) are acceptable and can be coded in the inpatient setting, when documented at the
time of discharge.
Thank you,
Kaley Rae RN BSN CCDS
CDI Specialist
please contact via tiger text
Please use your independent medical judgment in providing your response.
[2023-12-18] MEDS: STERILE WATER FOR INJECTION 10 ML IV (15:01)
[2023-12-18] MEDS: ROCEPHIN 1000 MG IV (15:01)
[2023-12-18] MEDS: XARELTO 15 MG PO (17:55)
[2023-12-18] MEDS: TOPROL XL 25 MG PO (17:57)
[2023-12-18] MEDS: PEPCID 20 MG PO (20:35)
[2023-12-19] VITALS (15 sets, daily range): BP systolic 101–122; BP diastolic 47–84; PULSE 93–98; BMI 22.6
[2023-12-19] MEDS: TYLENOL PO ×6 (00:06→19:32)
--- NOTE | 2023-12-19 00:35 | PTCARENOTE ---
Addendum entered by Terry Ivan RN 12/19/23 01:17:
Order for IM Haldol received. administered per jul. Shauna updated; hoping pt will be able to sleep tonight.
Original Note:
Patient becoming more agitated, taking off abductor pillow, at the edge of the bed stating she 'is leaving this place'. Patient re-educated on plan, pt forgetful and stated 'why didnt you tell me in the first place?' then continues to attempt to get
out of bed, stating 'I am supposed to doing therapy'. Daughter, Shauna, called and spoke with pt to help calm down. DANETTE Villaseñor at bedside to assess. Med sitter in place for safety.
[2023-12-19] MEDS: HALDOL 1 MG IM (00:55)
[2023-12-19 04:01] LABS: % Basophils 0.5 % (0-2); % Eosinophils 1.9 % (0-6); % Immature Granulocytes 1.3 % (0-0.5); % Lymphocytes 15.5 % (20.5-51.1); % Monocytes 9.3 % (1.7-9.3); % Neutrophils 71.5 % (42.2-75.2); Absolute Eosinophils 0.2 10^3/uL (0-0.7); Absolute Immature Granulocytes 0.1 10^3/uL (0-0.05); Absolute Lymphocytes 1.3 10^3/uL (1.2-3.4); Absolute Monocytes 0.8 10^3/uL (0.1-0.6); Absolute Neutrophils 6.2 10^3/uL (1.4-6.5); Hematocrit 23.8 % (37.0-47.0); Mean Corp Hgb Conc. 33.6 g/dL (33.0-37.0); Mean Corpuscular Hgb 27.5 pg (27.0-31.0); Mean Corpuscular Volume 81.8 fL (81.0-99.0); Mean Platelet Volume 9.3 fL (7.4-10.4); Nucleated Red Blood Cells % 0 %; Platelet Count 213 10^3/uL (130-400); Red Blood Cell Count 2.91 10^6/uL (4.20-5.40); Red Cell Dist. Width 18.3 % (11.5-14.5); White Blood Cell Count 8.6 10^3/uL (4.8-10.8)
[2023-12-19 04:26] LABS: Blood Urea Nitrogen 18 mg/dl (7-17); Calcium 8.6 mg/dl (8.4-10.2); Carbon Dioxide 20 mmol/L (22-30); Chloride 110 mmol/L (98-107); Estimated Creatinine Clearance 51 ml/min; Glucose 98 mg/dl (70-99); Potassium 3.7 mmol/L (3.5-5.1); Sodium 137 mmol/L (135-145); eGFR > 60.00
--- NOTE | 2023-12-19 04:56 | PTCARENOTE ---
Addendum entered by Terry Ivan RN 12/19/23 07:21:
Restraint order obtained, but restraints not needed after IM Haldol, pt able to calm down. Med sitter in place. Slept about 2-3 hours on/off.
Original Note:
Patient continues to retain urine. Bladder scanned for >400mL. Pt has been straight cathed multiple times this admission. Pt dribbles small amounts of urine. DANETTE Villaseñor contacted for indwelling catheter per acute urinary retention protocol. Ok to
place sanders versus continuing intermittent catheterization. 14 Fr sanders catheter placed with sterile technique, pt tolerated well. Draining clear yellow urine at bedside to gravity.
--- NOTE | 2023-12-19 08:26 | PTCARENOTE ---
Patient very confused overnight. IM haldol given x1 with little result. Patient high fall risk. Bed and chair alarm in use as well as med-sitter. Denis catheter, placed last night due to urinary retention.
[2023-12-19] MEDS: VITAMIN D3 (cholecalciferol) 25 MCG PO (08:28)
[2023-12-19] MEDS: LIPITOR 10 MG PO (08:29)
[2023-12-19] MEDS: ProAmatine 10 MG PO ×3 (08:29→17:42)
--- NOTE | 2023-12-19 10:54 | CM ---
Addendum entered by Ninfa Ramirez RN 12/19/23 13:08:
[facility] fax apparently not working using manual fax machine- [employer] fax of clinical info failed also. [place] scanned/uploaded clinical to [facility] via [employer].
Spoke with Kaley Adms Director Ashley; SNF auth info provided. They are able to accept the patient on Friday if she is not agitated, if Medsitter is off for 24 hrs. Kaley's cell for the weekend is [phone]. The phone # for nurse report to the
weekend cost control supervisor is [phone], fax [phone].
Plan contact daughter to let her know when patient is discharged.
Plan d/c to [facility] possibly Sun 12/20 if no agitated behavior & off Medsitter for 24 hrs.
Original Note:
Patient with Dx Right Hip Fracture s/p right ONI conversion, Acute Blood loss anemia. Room air. WBAT RLE. Receiving IV Abx, Midodrine. PT & OT; assist of 2, recommend skilled rehab. Per nursing; confused, Medsitter.
Message from Dr Drew; patient may be ready for d/c Sun 12/[address] Drew & nurse Araceli; Ashley [facility] can take her on Friday once [facility] approves, however agitation needs to be resolved and she needs to be off Medsitter for 24 hours, which means stopping it tomorrow if possible. SNF cannot do prn
doses of Haldol or other meds like Risperdal, only scheduled doses.
Spoke with [facility] Ad[facility] Director [facility]; they are able to accept the patient on Friday if she is not agitated, if Medsitter is off for 24 hrs, and insurance auth is obtained. Kaley's cell for the weekend is [phone].
Spoke with patient's daughter Shauna; she agrees with d/c to [facility] Friday. She has been getting updates from the MD. Her sister Mally is here visiting and will be available this weekend.
Request for insurance auth initiated via [employer], and 7 SNF days requested for [facility]; Certification Number [id number], Certified in [employer].
Clinical info sent to [facility] via [employer].
Plan contact Kaley at [facility] with insurance auth.
Plan d/c to [facility] possibly Sun 12/20 if no agitated behavior & off Medsitter for 24 hrs, and insurance approves.
--- NOTE | 2023-12-19 11:58 | W.PN.HOSP.TC ---
Today's Communication/Plan
-
low dose seroquel
DC IVF/Levophed
Assessment / Plan
Assessment / Plan
General: No Apparent Distress
HEENT: Normocephalic and Atraumatic
Respiratory: Clear to Auscultation (frontal ); Negative Wheezes or Rhonchi
Cardiac: S1/S2 and Irregular Rhythm
GI: Soft, Nontender, Nondistended and Normal Bowel Sounds
Musculoskeletal: No Clubbing, No Cyanosis and No Edema, R hip aquacell dressing intact.
Skin: Warm and Dry
Neuro: Awake and Alert
Psych: Calm
Right Hip Fracture - internally fixated intertrochanteric fracture of the RIGHT. Pain with reduced ROM.
- held anticoagulation -xarelto was washout and resumed 12/11
- when resumed Hgb was 9.5, by morning of 12/12 was 7.0. Xarelto was stopped and pt was transfused 1 unit of blood. Drop in hgb likely dilutional effect. repeat h/h.
- pain control,
- PT/OT post op.
- Analgesic changed from Oxycodone to Tramadol due to excess sedation exacerbated by Oxycodone, appears less sedated, hopefully, pt will start to eat and can increase activity with planned dc to SNF
Shock likely multifactorial due to blood loss versus dehydration versus Lasix
-MEDICAL RADIATION TECH on 12/15 for severe symptomatic hypotension
-Will DC further intravenous fluids. DC Levophed.
-Blood pressure 104/55. Continue with midodrine 10 mg 3 times daily and observe.
-DC Lasix for now.
#Toxic Metabolic encephalopathy likely secondary to delirium versus low likelihood of infection related versus worsening of suspected underlying cognitive impairment with behavioral disturbances
Patient without formal sleep overnight multiple days.
Discussed with 2 daughters and both agreed to be started on a low-dose seroquel and observe
AFIB - Permanent AFIB.
-Cont metoprolol
-monitor on tele
-If persistently tachy may need cards input as limited options due to soft BP.
Trop elevation - Non-ischemic myocardial injury versus mild rhabdo. No chest pain.
-downtrended. 0.043-->0.044-->0.031
CK elevation - Unclear how long she was on the ground but had mild rhabdo w/o KENDRA.
- was given 500 ml bolus, IVF ordered perioperatively, will slow rate, stop once she is tolerating oral. Needed to increase rate for short time due to low BP, better today
- encourage po intake.
-BUN/Creat 25/0.7-->17/0.7-->20/0.7-->18/0.7
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
Traumatic Rhabdomyolysis
-CPK 605-->479-->50
Acute Blood loss anemia likely 2/2 surgery and inflammatory reaction post op
-s/p 1u of PRBC so far. Restart xarelto.
HAPU for R buttocks stage 2 pressure injury.
R lower gluteal fold linear stage 2 pressure injury suspect r/t her Denis catheter.
Mild hypokalemia
-will supplement
Mitral valve replacement with mild MR
Moderate to sever aortic stenosis
Moderate to severe TR
-Lasix held this am due to soft bp
Urinary retention
-required straight cath on 12/14
-cont the protocol
-Mobility should help
E.coli UTI
Urinary retention status post Denis catheter placement
-Started rocephin
dvt ppx-scds/xarelto
DNDR/DNI per Dr. Ludwig d/w wt family.
d/w with 2 daughter at bedside in details.
Anticipated Discharge: > 48 hours
Subjective/Interval History
-
Date of Service: December 19, 2023
Overnight events noted
Patient was agitated
This morning patient was calm
States did not get much sleep overnight
About to work with PT
Blood pressures improved
Objective Data
-
Labs:
Laboratory Results
12/19/23
03:42
WBC 8.6
Hgb 8.0 L
Hct 23.8 L
Plt Count 213
Sodium 137
Potassium 3.7
Chloride 110 H
Carbon Dioxide 20 L
BUN 18 H
Creatinine 0.7
Glucose 98
Calcium 8.6
Vital Signs:
Vital Signs
Temp Pulse Resp BP Pulse Ox
98.6 F 87 23 104/55 96
12/19/23 11:00 12/19/23 08:01 12/19/23 08:01 12/19/23 08:01 12/19/23 07:45
I&O
12/18/23 12/19/23 12/20/23
06:59 06:59 06:59
Intake Total 2525.2 / 2629.0 1609.6 / 1609.6
Output Total 150 / 150 1280 / 1280 300 / 300
Balance 2375.2 / 2479.0 329.6 / 329.6 -300 / -300
Data Reviewed
-
Total Time Spent with Patient (in minutes): 56
[2023-12-19] MEDS: NSS IV (13:19)
[2023-12-19] MEDS: ROCEPHIN 1000 MG IV (13:30)
[2023-12-19] MEDS: STERILE WATER FOR INJECTION 10 ML IV (13:30)
[2023-12-19] MEDS: FLUSH (NSS) 2 FLUSH IV (13:31)
[2023-12-19] MEDS: TOPROL XL 25 MG PO (17:43)
[2023-12-19] MEDS: XARELTO 15 MG PO (17:43)
--- NOTE | 2023-12-19 18:30 | PTCARENOTE ---
Patient out of bed to chair with assistance x2 and walker to get back to bed. Patient awake and alert. Patient forgetful and confused at times but was calm all day. Daughter in room at bedside and she will be staying the night. Right hip
aquacell intact with old drainage noted. Patient to follow hip precautions. BP'S stable all day.
[2023-12-20] VITALS (15 sets, daily range): BP systolic 88–145; BP diastolic 41–110; PULSE 81; BMI 22.5
[2023-12-20] MEDS: PEPCID PO (00:16)
[2023-12-20] MEDS: TYLENOL PO ×3 (00:16→23:21)
[2023-12-20] MEDS: COLACE PO ×2 (00:16→20:18)
[2023-12-20] MEDS: SEROQUEL PO (00:18)
[2023-12-20 04:39] LABS: % Basophils 0.5 % (0-2); % Eosinophils 1.8 % (0-6); % Immature Granulocytes 1.2 % (0-0.5); % Lymphocytes 16.3 % (20.5-51.1); % Monocytes 11.2 % (1.7-9.3); Absolute Eosinophils 0.1 10^3/uL (0-0.7); Absolute Immature Granulocytes 0.1 10^3/uL (0-0.05); Absolute Lymphocytes 1.1 10^3/uL (1.2-3.4); Absolute Monocytes 0.7 10^3/uL (0.1-0.6); Absolute Neutrophils 4.5 10^3/uL (1.4-6.5); Hematocrit 23.1 % (37.0-47.0); Hemoglobin 7.8 g/dL (12.0-16.0); Mean Corp Hgb Conc. 33.8 g/dL (33.0-37.0); Mean Corpuscular Hgb 27.2 pg (27.0-31.0); Mean Corpuscular Volume 80.5 fL (81.0-99.0); Mean Platelet Volume 9.4 fL (7.4-10.4); Nucleated Red Blood Cells % 0 %; Platelet Count 205 10^3/uL (130-400); Red Blood Cell Count 2.87 10^6/uL (4.20-5.40); Red Cell Dist. Width 18.8 % (11.5-14.5); White Blood Cell Count 6.5 10^3/uL (4.8-10.8)
[2023-12-20 05:03] LABS: Blood Urea Nitrogen 14 mg/dl (7-17); Carbon Dioxide 20 mmol/L (22-30); Chloride 110 mmol/L (98-107); Estimated Creatinine Clearance 59 ml/min; Glucose 90 mg/dl (70-99); Potassium 3.7 mmol/L (3.5-5.1); Sodium 137 mmol/L (135-145); eGFR > 60.00
--- NOTE | 2023-12-20 05:25 | PTCARENOTE ---
Patient is POD # 10 from right hip total arthroplasty s/p fall. Patient was drowsy last night. Slept without taking Seroquel. Cooperative with care. Mally-Daughter stayed overnight. Pt was able to sleep throughout the night. Tele showing SR/SA with
frequent PACs. BP stable. Denies any pain, refused scheduled Tylenol. Right hip with old mod/large size dried drainage on original post-op dressing. Denis catheter in place. Call perez within reach. Bed alarm set.
[2023-12-20] MEDS: VITAMIN D3 (cholecalciferol) 25 MCG PO (09:18)
[2023-12-20] MEDS: COLACE 100 MG PO (09:18)
[2023-12-20] MEDS: ProAmatine 10 MG PO ×3 (09:19→17:31)
[2023-12-20] MEDS: LIPITOR 10 MG PO (09:19)
--- NOTE | 2023-12-20 10:58 | W.PN.HOSP.TC ---
Today's Communication/Plan
-
repeat H/H
Monitor BP
Monitor diet tolerance
off sitter
monitor po intake
Assessment / Plan
Assessment / Plan
General: No Apparent Distress
HEENT: Normocephalic and Atraumatic
Respiratory: Clear to Auscultation (frontal ); Negative Wheezes or Rhonchi
Cardiac: S1/S2 and Irregular Rhythm
GI: Soft, Nontender, Nondistended and Normal Bowel Sounds
Musculoskeletal: No Clubbing, No Cyanosis and No Edema, R hip aquacell dressing intact.
Skin: Warm and Dry
Neuro: Awake and Alert
Psych: Calm
Right Hip Fracture - internally fixated intertrochanteric fracture of the RIGHT. Pain with reduced ROM.
- held anticoagulation -xarelto was washout and resumed 12/11
- pain control,
- PT/OT post op.
- Analgesic changed from Oxycodone to Tramadol due to excess sedation exacerbated by Oxycodone, appears less sedated, hopefully, pt will start to eat and can increase activity with planned dc to SNF
Shock likely multifactorial due to blood loss versus dehydration versus Lasix
-INSULATION POWER UNIT TENDER on 12/15 for severe symptomatic hypotension
-Will DC further intravenous fluids. DC Levophed.
-Blood pressure 101/49. Continue with midodrine 10 mg 3 times daily and observe.
-DC Lasix for now.
#Toxic Metabolic encephalopathy likely secondary to delirium versus low likelihood of infection related versus worsening of suspected underlying cognitive impairment with behavioral disturbances
Patient without formal sleep overnight multiple days.
Discussed with 2 daughters and both agreed to be started on a low-dose seroquel and observe. Did not require last night.
AFIB - Permanent AFIB.
-Cont metoprolol
-monitor on tele
Trop elevation - Non-ischemic myocardial injury versus mild rhabdo. No chest pain.
-downtrended. 0.043-->0.044-->0.031
CK elevation - Unclear how long she was on the ground but had mild rhabdo w/o KENDRA.
- was given 500 ml bolus, IVF ordered perioperatively, will slow rate, stop once she is tolerating oral. Needed to increase rate for short time due to low BP, better today
- encourage po intake.
-BUN/Creat 25/0.7-->17/0.7-->20/0.7-->18/0.7
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
Traumatic Rhabdomyolysis
-CPK 605-->479-->50
Acute Blood loss anemia likely 2/2 surgery and inflammatory reaction post op
-s/p 1u of PRBC so far. Restart xarelto.
-Dilutional effect to some extent as received IVF.
HAPU for R buttocks stage 2 pressure injury.
R lower gluteal fold linear stage 2 pressure injury suspect r/t her Denis catheter.
Mild hypokalemia
-will supplement
Mitral valve replacement with mild MR
Moderate to sever aortic stenosis
Moderate to severe TR
-Lasix held this am due to soft bp
Urinary retention
-required straight cath on 12/14
-cont the protocol
-Mobility should help
E.coli UTI
Urinary retention status post Denis catheter placement
-Started rocephin
dvt ppx-scds/xarelto
DNDR/DNI per Dr. Ludwig d/w [facility] family.
PT/OT-SNF. Plan for SNF.
Anticipated Discharge: Within 24 hours
Subjective/Interval History
-
Date of Service: December 20, 2023
slept well overnight
calm
not agitated
off sitter
finished breakfast
Objective Data
-
Labs:
Laboratory Results
12/20/23
04:28
WBC 6.5
Hgb 7.8 L
Hct 23.1 L
Plt Count 205
Sodium 137
Potassium 3.7
Chloride 110 H
Carbon Dioxide 20 L
BUN 14
Creatinine 0.6
Glucose 90
Calcium 9.0
Vital Signs:
Vital Signs
Temp Pulse Resp BP Pulse Ox
96.7 F L 77 20 101/49 95
12/20/23 07:05 12/20/23 06:00 12/20/23 06:00 12/20/23 06:00 12/19/23 20:30
I&O
12/19/23 12/20/23 12/21/23
06:59 06:59 06:59
Intake Total 1609.6 / 1609.6 825 / 825
Output Total 1280 / 1280 1230 / 1230
Balance 329.6 / 329.6 -405 / -405
Data Reviewed
-
Total Time Spent with Patient (in minutes): 56
[2023-12-20] MEDS: TYLENOL 650 MG PO ×2 (13:38→17:31)
[2023-12-20] MEDS: ROCEPHIN 1000 MG IV (15:00)
[2023-12-20] MEDS: STERILE WATER FOR INJECTION 10 ML IV (15:33)
[2023-12-20 16:30] LABS: Hematocrit 24.9 % (37.0-47.0); Hemoglobin 8.3 g/dL (12.0-16.0)
[2023-12-20] MEDS: TOPROL XL 37.5 MG PO (17:30)
[2023-12-20] MEDS: XARELTO 15 MG PO (17:31)
[2023-12-20] MEDS: SEROQUEL 12.5 MG PO (20:19)
[2023-12-20] MEDS: PEPCID 20 MG PO (20:19)
[2023-12-21] VITALS (8 sets, daily range): BP systolic 92–123; BP diastolic 39–64; BMI 22.1
[2023-12-21] MEDS: TYLENOL PO (06:24)
--- NOTE | 2023-12-21 06:34 | PTCARENOTE ---
Patient is POD #11. She was able to rest overnight. No restlessness or attempting to get out of bed. Cooperative with cares. She is forgetful but able to state date and place. Tele showing SR/SA/PACS. Denies any pain. Right hip dressing with old
drainage. Abductor pillow in place, hip precautions maintained. Encouraged PO intake. Denis with clear yellow urine. Repositioned for comfort. Bed alarm set for safety. Call perez and tray table left within reach.
[2023-12-21] MEDS: LIPITOR 10 MG PO (08:27)
[2023-12-21] MEDS: ProAmatine 10 MG PO ×2 (08:27→13:02)
[2023-12-21] MEDS: COLACE 100 MG PO (08:27)
[2023-12-21] MEDS: VITAMIN D3 (cholecalciferol) 25 MCG PO (08:27)
--- NOTE | 2023-12-21 08:51 | PTCARENOTE ---
Assumed care of pt from night RN, pt AAOx3, forgetful at times. Repositioned in bed frequently, hip precautions in place. Original aquacell dressing on R hip incision, no new drainage noted. Ensure clear given to pt., appetite remains poor. Will
continue to monitor through shift.
--- NOTE | 2023-12-21 11:10 | W.PN.HOSP.TC ---
Today's Communication/Plan
-
dc to snf
Assessment / Plan
Assessment / Plan
General: No Apparent Distress
HEENT: Normocephalic and Atraumatic
Respiratory: Clear to Auscultation (frontal ); Negative Wheezes or Rhonchi
Cardiac: S1/S2 and Irregular Rhythm
GI: Soft, Nontender, Nondistended and Normal Bowel Sounds
Musculoskeletal: No Clubbing, No Cyanosis and No Edema, R hip aquacell dressing intact.
Skin: Warm and Dry
Neuro: Awake and Alert
Psych: Calm
Right Hip Fracture - internally fixated intertrochanteric fracture of the RIGHT. Pain with reduced ROM.
- held anticoagulation -xarelto was washout and resumed 12/11
- pain control,
- PT/OT post op.
- Analgesic changed from Oxycodone to Tramadol due to excess sedation exacerbated by Oxycodone, appears less sedated, hopefully, pt will start to eat and can increase activity with planned dc to SNF
Shock likely multifactorial due to blood loss versus dehydration versus Lasix
-PNEUMATIC TOOL OPERATOR on 12/15 for severe symptomatic hypotension
-Will DC further intravenous fluids. DC Levophed.
-Blood pressure 101/49. Continue with midodrine 10 mg 3 times daily and observe.
-DC Lasix for now. BP stabilized
#Toxic Metabolic encephalopathy likely secondary to delirium versus low likelihood of infection related versus worsening of suspected underlying cognitive impairment with behavioral disturbances
Patient without formal sleep overnight multiple days.
Discussed with 2 daughters and both agreed to be started on a low-dose seroquel and observe. Did not require last night.
AFIB - Permanent AFIB.
-Cont metoprolol 25mg qhs (37.5mg did not tolerate it)
-monitor on tele
Trop elevation - Non-ischemic myocardial injury versus mild rhabdo. No chest pain.
-downtrended. 0.043-->0.044-->0.031
CK elevation - Unclear how long she was on the ground but had mild rhabdo w/o KENDRA.
- was given 500 ml bolus, IVF ordered perioperatively, will slow rate, stop once she is tolerating oral. Needed to increase rate for short time due to low BP, better today
- encourage po intake.
-BUN/Creat 25/0.7-->17/0.7-->20/0.7-->18/0.7
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
Traumatic Rhabdomyolysis
-CPK 605-->479-->50
Acute Blood loss anemia likely 2/2 surgery and inflammatory reaction post op
-s/p 1u of PRBC so far. Restart xarelto.
-Dilutional effect to some extent as received IVF. Hgb at 8.3
HAPU for R buttocks stage 2 pressure injury.
R lower gluteal fold linear stage 2 pressure injury suspect r/t her Denis catheter.
Mild hypokalemia
-replete/monitor
Mitral valve replacement with mild MR
Moderate to sever aortic stenosis
Moderate to severe TR
-Lasix held this am due to soft bp
Urinary retention
-required straight cath on 12/14
-cont the protocol
-Mobility should help
E.coli UTI
Urinary retention status post Denis catheter placement
-Started rocephin -completed therapy
dvt ppx-scds/xarelto
DNDR/DNI per Dr. Ludwig d/w [facility] family.
PT/OT-SNF. Plan for SNF
Discussed with patient daughter at bedside in detail. Patient with prolonged prognosis guarded with significant heart failure and chronic hypotension, decreased appetite leading to weight loss, cognitive impairment. Daughter verbalized
understanding. Agreed for DC to SNF.
More than 30 minutes spent in discharge including
Final examination of the patient
Summarizing hospital stay
Instructions for continuing care to all relevant caregivers
Preparation of discharge records, prescriptions, and referral forms
Total time spent (in minutes): 52
Anticipated Discharge: Today
Subjective/Interval History
-
Date of Service: December 21, 2023
feeling better
bp better
slept well overnight
Objective Data
-
Vital Signs:
Vital Signs
Temp Pulse Resp BP Pulse Ox
97.5 F 84 24 114/64 97
12/21/23 07:22 12/21/23 10:02 12/21/23 10:02 12/21/23 10:02 12/21/23 07:45
I&O
12/20/23 12/21/23 12/22/23
06:59 06:59 06:59
Intake Total 825 / 825 240 / 240
Output Total 1230 / 1230 550 / 550
Balance -405 / -405 -310 / -310
--- NOTE | 2023-12-21 11:50 | CM ---
CM notified by IMU RN of discharge for today. Call to Kaley jackson Ashley to provide her with authorization/certification and dates 12/19-01/01/2024. JATIN Ramirez to arrange transport and update [facility] information.
[2023-12-21] MEDS: TYLENOL 650 MG PO (13:02)
[2023-12-21] MEDS: STERILE WATER FOR INJECTION 10 ML IV (13:02)
[2023-12-21] MEDS: ROCEPHIN 1000 MG IV (13:03)
--- NOTE | 2023-12-21 16:40 | CM ---
Patient with Dx Right Hip Fracture s/p right ONI conversion, Acute Blood loss anemia. Room air. WBAT RLE. PT & OT; recommend skilled rehab.
Messages with nurse; no agitated behaviors and Medsitter was d/c'ed yesterday.
Spoke with Nursing [employer], [facility]; they are able to accept the patient today. The phone # for nurse report to the weekend research kennel supervisor is [phone], fax [phone]. Referral updated in [facility].
Met with patient and her daughter Shauna; both agree with d/c to [facility] today by ambulance. IMM completed.
Plan d/c to [facility] today by ambulance.
== END 2023-12-21 15:35 | DRG 521 ==
LOC: IMU 16:51
PROVIDERS: Internal Medicine; Orthopaedic Surgery; Physician Assistant; Physician Assistant Medical; ADMITTING PHYSICIAN Internal Medicine; ATTENDING PHYSICIAN Hospitalist; EMERGENCY PHYSICIAN Emergency Medicine; FAMILY PHYSICIAN Family Medicine
PROC: 0QP604Z Removal of Internal Fixation Device from Right Upper Femur, Open Approach (ICD-10-PCS; 2023-12-10)
PROC: 0SR9039 Replacement of Right Hip Joint with Ceramic Synthetic Substitute, Cemented, Open Approach (ICD-10-PCS; 2023-12-10)
PROC: 30233N1 Transfusion of Nonautologous Red Blood Cells into Peripheral Vein, Percutaneous Approach (ICD-10-PCS; 2023-12-13)
DX: M84.451A Pathological fracture, right femur, initial encounter for fracture (principal); G92.8 Other toxic encephalopathy; R57.8 Other shock; M97.01XA Periprosthetic fracture around internal prosthetic right hip joint, initial encounter; I48.21 Permanent atrial fibrillation; N39.0 Urinary tract infection, site not specified; I5A Non-ischemic myocardial injury (non-traumatic); D62 Acute posthemorrhagic anemia; F05 Delirium due to known physiological condition; M79.671 Pain in right foot; T79.6XXA Traumatic ischemia of muscle, initial encounter; R26.2 Difficulty in walking, not elsewhere classified; I35.0 Nonrheumatic aortic (valve) stenosis; I07.1 Rheumatic tricuspid insufficiency; E78.00 Pure hypercholesterolemia, unspecified; I10 Essential (primary) hypertension; K21.9 Gastro-esophageal reflux disease without esophagitis; R33.9 Retention of urine, unspecified; E87.6 Hypokalemia; B96.20 Unspecified Escherichia coli [E. coli] as the cause of diseases classified elsewhere; L89.312 Pressure ulcer of right buttock, stage 2; W01.0XXA Fall on same level from slipping, tripping and stumbling without subsequent striking against object, initial encounter; Y93.9 Activity, unspecified; Y92.9 Unspecified place or not applicable; Z66 Do not resuscitate; Z96.651 Presence of right artificial knee joint; Z79.01 Long term (current) use of anticoagulants; Z88.0 Allergy status to penicillin; Z88.8 Allergy status to other drugs, medicaments and biological substances; Z79.82 Long term (current) use of aspirin; Z95.2 Presence of prosthetic heart valve
CPT/HCPCS: 70450; 71046; 72125; 73502; 73552; 73564; 73630; 80048; 80053; 81003; 81015; 82533; 82550; 82962; 83605; 84443; 84484; 85014; 85018; 85025; 85027; 86850; 86900; 86901; 86920; 87070; 87086; 87088; 87186; 93005; 93306; 96360; 96361; 97110; 97116; 97163; 97167; 97530; 97535; 99285; C1713; C1776; P9016

== ENCOUNTER 2024-02-02 08:44 | Emergency (ER) | payer OTHER, SELFPAY ==
[2024-02-02 08:52] VITALS: BP 124/83
--- NOTE | 2024-02-02 09:40 | ED.GENMED ---
History of Present Illness
General
Chief Complaint: Change in Mental Status
Source: patient, family and ambulance crew
Exam Limitations: clinical condition
Time Seen by Provider: 02/02/24 08:47
Nursing documentation reviewed up to this point in time: agreed with
History of Present Illness
History of Present Illness:
83-year-old female with a past medical history as documented notable for A-fib on Xarelto who presents to the emergency room from her independent living facility at [facility]; presents via EMS after being found down on the ground. Apparently staff
found on the floor this morning, noted that she was confused. Referred to the ER for evaluation. Patient's daughter is at bedside and provides collateral history: Apparently recently her mother has been having short-term memory issues and
occasional confusion. Apparently patient has moved residences twice over the past few months and her daughter believes this is contributing to her confusion/disorientation. She has also been started on Seroquel for agitation and daughter is
concerned that this may be contributing as well. Patient says that she feels fine. She cannot recall falling. She denies any headache, neck pain, back pain, chest pain, abdominal pain. Denies feeling nauseated. Denies any pain in her
extremities. She is on Xarelto.
Past History
Past History
ED Past Medical History: Arrthythmia, GERD and HTN
Review of Systems
Review of Systems
All Other Systems: ROS reviewed and negative except as documented in HPI and ROS
Constitutional: Denies fever
Respiratory: Denies trouble breathing
Cardiac: Denies chest pain
ABD/GI: Denies abdominal pain or nausea
: Denies flank pain
Musculoskeletal: Denies neck pain or back pain
Neurological: Denies dizzy or headache
Phy Exam
Physical Exam
Physical Exam:
General: Awake, alert, oriented x3; no acute distress
Head: Normocephalic, atraumatic
Eyes: Conjunctiva normal, pupils equal round and reactive to light bilaterally
Throat: Airway intact, handling secretions
Neck: Trachea midline, no cervical spine tenderness
Lungs: Clear to auscultation bilaterally, normal respiratory rate, normal pulse ox on room air
Heart: Regular rate and rhythm, systolic murmur; no chest wall tenderness
Abd: Soft, non distended, nontender
Back: No signs of trauma to the back or flank, no tenderness in the thoracic or lumbar spine
Neuro: No gross deficits
Skin: No lacerations or abrasions, no ecchymosis or other signs of acute trauma
Extremities: Patient has well-healed incision on the right hip, extremities atraumatic, allows for full passive range of motion of all joints of the upper and lower extremities without any pain; good pulses in all extremities
Scores
Heart Failure Risk
Heart Failure Risk Score: Not Applicable
Heart Score for Chest Pain Patients
STEMI patient?: Not applicable
Withdrawal Assessment of Alcohol
Withdrawal Assessment Completed?: Not applicable
Course
Orders/Labs/Results
Orders:
Orders
02/02/24 09:14
CT Cervical Spine W/o Iv Contr Urgent
Comment:
Reason For Exam: found down, confused
CT Head W/o Iv Contrast Urgent
Comment:
Reason For Exam: found down, confused
02/02/24 09:15
Electrocardiogram (*1) Urgent
Reason for Study: Syncope
EKG- Treatment ONCE
02/02/24 09:47
Complete Blood Count/With Diff Urgent
02/02/24 09:59
Urinalysis Reflex To Culture Urgent
Date Specimen was Collected: 02/02/24
Time Specimen was Collected: 09:57
Urine Microscopic Reflex Cult Urgent
02/02/24 10:18
CR Chest - 2 Views Urgent
Comment:
Reason For Exam: confusion
CR Pelvis Comp Min 3 Views Urgent
Comment:
Reason For Exam: unwitness fall
02/02/24 10:59
Comprehensive Metabolic Panel Urgent
Creatine Phosphokinase Urgent
Abnormal Lab Results
02/02/24 02/02/24 02/02/24
09:47 09:59 10:59
RBC 3.66 L 10^6/uL
(4.20-5.40)
Hgb 10.7 L g/dL
(12.0-16.0)
Hct 32.1 L %
(37.0-47.0)
RDW 17.1 H %
(11.5-14.5)
Plt Count 129 L 10^3/uL
(130-400)
MPV 10.5 H fL
(7.4-10.4)
Absolute Lymphs (auto) 0.7 L 10^3/uL
(1.2-3.4)
Absolute Monos (auto) 0.8 H 10^3/uL
(0.1-0.6)
Lymphocytes % 11.0 L %
(20.5-51.1)
Monocytes % 12.2 H %
(1.7-9.3)
BUN 30 H mg/dl
(7-17)
Glucose 100 H mg/dl
(70-99)
Total Protein 5.6 L g/dl
(6.3-8.2)
Leukocyte Esterase Rfl Trace A
(Negative)
Urine RBC 3-6 A /HPF
(0-2)
Urine Bacteria (Reflex) Few A
(Negative)
02/02/24 09:47
02/02/24 10:59
Vital Signs
Initial and Last Documented VS:
Initial Vital Signs
Temp Pulse Resp BP Pulse Ox
36.9 C 68 18 124/83 96
02/02/24 08:52 02/02/24 08:52 02/02/24 08:52 02/02/24 08:52 02/02/24 08:52
Last Documented Vital Signs
Temp Pulse Resp BP Pulse Ox
36.9 C 69 15 124/74 96
02/02/24 08:52 02/02/24 10:15 02/02/24 10:15 02/02/24 10:03 02/02/24 08:52
MDM/Problems Addressed
Differential Diagnosis Includes:
Confusion: Dementia, delirium, infection including UTI or pneumonia, traumatic head injury, uremia, polypharmacy
MDM/Problems Addressed:
83-year-old female presents for evaluation of mild confusion this morning after being found down on the ground. Per daughter this has been an ongoing issue she thinks possibly related to environmental issues and medications. Patient appears to be
at her baseline here in the ER according to daughter. Patient has no complaints denies any injuries. Vital signs normal. Exam as above. She is on Xarelto. Will check CBC, CMP, urinalysis. Will check chest x-ray. Will check CT head, cervical
spine, pelvis given unwitnessed fall and poor recall of the events. Check an EKG. Monitor on telemetry. Reassess after the above.
Labs reviewed: CBC shows stable anemia, CMP shows slightly elevated BUN�daughter reports patient has had poor fluid intake generally speaking, IV fluids given. CPK is normal. Urinalysis few bacteria some pyuria but multiple squamous cells
suggesting contamination�given her recent confusion reasonable to cover with antibiotics for UTI. CT of the head and cervical spine are negative for any acute posttraumatic injury. Chest x-ray and pelvic x-ray unremarkable. Vitals have been
stable throughout 4-hour ED observation. Daughter feels comfortable with discharge, patient requesting discharge. Will cover with antibiotics as above for potential UTI. Follow-up with PCP as an outpatient. Spoke about return precautions all
questions answered.
Chronic conditions affecting care:
A-fib on Xarelto which complicates her fall
*Radiology
Radiology exam reviewed: radiology read reviewed
*Pulse Oximetry
Patient hypoxic: no
*EKG
Interpreted by ED Provider?: Yes
Heart Rate: 73
Rate: normal
Rhythm: sinus
[place]: normal axis
Interval: normal interval
QRS Pattern: normal QRS
Ischemia: no ischemia
*Critical Care Note
Total Time (30-74mins, 75-104mins- exclusive of procedures): Not Applicable
Data Reviewed
Source: patient, records, family and ambulance crew
ED Attending Note
-
Portions of this chart may have been created with voice recognition software.� Occasional wrong word or��sound alike� substitutions may have occurred due to the inherent limitations of voice recognition software.
Discharge Plan
Departure
Prescriptions:
No Action
atorvastatin 10 MG tablet
10 mg PO DAILY@1300
metoprolol succinate 25 mg tablet extended release 24 hr
25 mg PO HS
nitrofurantoin monohyd/m-cryst 100 mg capsule
100 mg PO BID
Xarelto 15 mg tablet
15 mg PO DAILY@1300
acetaminophen 650 mg Tablet Extended Release
650 mg PO BID
ascorbic acid (vitamin C) [Vitamin C] 250 mg Tablet
250 mg PO DAILY@1300
cholecalciferol (vitamin D3) 25 mcg (1,000 unit) Tablet
25 mcg PO DAILY@1300
midodrine 5 mg Tablet
10 mg PO TID@0800,1300,1800 30 Days Qty: 90 0RF
quetiapine [Seroquel] 25 mg tablet
12.5 mg PO HS 5 Days Qty: 3 0RF
Referrals:
Dot Lozano MD [Family Provider] -
Interventions
Interventions:
*Risk Screen - Suicide Last Done: 02/02/24 09:15
*General Assessment Last Done: 02/02/24 09:15
*Neglect/Abuse Screening Last Done: 02/02/24 09:15
ED- Neurological Assessment Last Done: 02/02/24 09:15
ED Swallowing Screen Last Done: 02/02/24 09:15
Discharge Date and Time
Print Language: KAZAKH
[2024-02-02 10:03] VITALS: BP 124/74
[2024-02-02 10:11] LABS: % Basophils 0.5 % (0-2); % Eosinophils 1.9 % (0-6); % Immature Granulocytes 0.3 % (0-0.5); % Monocytes 12.2 % (1.7-9.3); % Neutrophils 74.1 % (42.2-75.2); Absolute Eosinophils 0.1 10^3/uL (0-0.7); Absolute Lymphocytes 0.7 10^3/uL (1.2-3.4); Absolute Monocytes 0.8 10^3/uL (0.1-0.6); Absolute Neutrophils 4.7 10^3/uL (1.4-6.5); Hematocrit 32.1 % (37.0-47.0); Hemoglobin 10.7 g/dL (12.0-16.0); Mean Corp Hgb Conc. 33.3 g/dL (33.0-37.0); Mean Corpuscular Hgb 29.2 pg (27.0-31.0); Mean Corpuscular Volume 87.7 fL (81.0-99.0); Mean Platelet Volume 10.5 fL (7.4-10.4); Nucleated Red Blood Cells % 0 %; Platelet Count 129 10^3/uL (130-400); Red Blood Cell Count 3.66 10^6/uL (4.20-5.40); Red Cell Dist. Width 17.1 % (11.5-14.5); White Blood Cell Count 6.4 10^3/uL (4.8-10.8)
[2024-02-02 10:37] LABS: Urine Albumin Negative (Neg - Trace); Urine Bilirubin Negative (Negative); Urine Character Clear (Clear); Urine Color Yellow; Urine Glucose Negative (Negative); Urine Ketone Negative (Negative); Urine Leukocyte Trace (Negative); Urine Nitrite Negative (Negative); Urine Occult Blood Negative (Negative); Urine Urobilinogen Negative (Neg - 1+)
[2024-02-02 11:08] LABS: Urine Bacteria Few (Negative)
[2024-02-02 11:39] LABS: ALT (SGPT) 14 U/L (0-35); AST (SGOT) 30 U/L (14-36); Albumin 3.6 g/dl (3.5-5.0); Alkaline Phosphatase 77 U/L (38-126); Blood Urea Nitrogen 30 mg/dl (7-17); Calcium 9.5 mg/dl (8.4-10.2); Carbon Dioxide 26 mmol/L (22-30); Chloride 106 mmol/L (98-107); Creatine Phosphokinase 57 U/L (30-135); Glucose 100 mg/dl (70-99); Potassium 4.5 mmol/L (3.5-5.1); Sodium 141 mmol/L (135-145); Total Bilirubin 0.8 mg/dl (0.2-1.3); Total Protein 5.6 g/dl (6.3-8.2); eGFR > 60.00
[2024-02-02] MEDS: ROCEPHIN 1000 MG IV (13:10)
== END 2024-02-02 14:06 | disposition home or self-care (01) ==
LOC: EMR 08:44
PROVIDERS: EMERGENCY PHYSICIAN Emergency Medicine; FAMILY PHYSICIAN Family Medicine
DX: R41.0 Disorientation, unspecified (principal); N39.0 Urinary tract infection, site not specified; W19.XXXA Unspecified fall, initial encounter; I48.91 Unspecified atrial fibrillation
CPT/HCPCS: 99285; 96374; 70450; 71046; 72125; 72190; 80053; 81003; 81015; 82550; 85025; 93005

== ENCOUNTER 2024-02-17 08:39 | Emergency (ER) | payer OTHER, SELFPAY ==
[2024-02-17] VITALS (12 sets, daily range): BP systolic 96–159; BP diastolic 60–93; BMI 18.8
--- NOTE | 2024-02-17 09:11 | ED.MUSCINJ ---
HPI-Injury
General
Chief Complaint: Fall
Source: patient
Exam Limitations: none
Time Seen by Provider: 02/17/24 08:42
History of Present Illness-Injury
Initial Injury comments:
84-year-old female presents from [facility] after noted fall from the staff. Patient has history of dementia and does not recall falling. They noted a deformity to the right lower extremity and the patient complains of right hip pain.
She has a history of right hip replacement. No witnessed head trauma or strike
Past History
Past History
ED Past Medical History: Arrthythmia, GERD and HTN
Phy Exam
Physical Exam
Physical Exam:
General: Well-appearing female no acute respiratory distress HEENT: Normocephalic atraumatic no scalp abrasion or hematoma
Heart: Regular rate and rhythm
Lungs: Clear no wheeze
Musculoskeletal exam: Right leg internally rotated and held in slight flexion at the hip.
Skin is intact no laceration
Neurologic exam: Alert oriented to person and place no facial asymmetry
Injury Course
Orders/Labs/Results
Orders:
Orders
02/17/24 08:50
CR Hip - RT w/wo Pel 2-3 Vw* Urgent
Comment:
Reason For Exam: pain
Include a pelvis x-ray?: Yes
02/17/24 09:48
CR Femur - Right Min 2 Vw Urgent
Comment:
Reason For Exam: pain
MDM/Problems Addressed
Differential Diagnosis Includes:
Right hip discomfort after alleged fall. Question fracture versus dislocation I personally reviewed x-rays of the right hip and femur which are negative for acute finding. There is
Known right hip replacement which is not dislocated. There is a right knee replacement as well
Patient reexamined her discomfort seems to be gone. Her right leg was ranged through good motion and she has improved. Stable for discharge back to facility
*Critical Care Note
Total Time (30-74mins, 75-104mins- exclusive of procedures): Not Applicable
ED Attending Note
-
Portions of this chart may have been created with voice recognition software.� Occasional wrong word or��sound alike� substitutions may have occurred due to the inherent limitations of voice recognition software.
Discharge Plan
Departure
Patient Disposition: Home (Routine Discharge)
Date of Disposition: 02/17/24
Time of Disposition: 11:57
Patient with high blood pressure during this ER visit?: No
Discharge Problem:
Fall
Prescriptions:
No Action
atorvastatin 10 MG tablet
10 mg PO DAILY@1300
metoprolol succinate 25 mg tablet extended release 24 hr
25 mg PO HS
nitrofurantoin monohyd/m-cryst 100 mg capsule
100 mg PO BID
Xarelto 15 mg tablet
15 mg PO DAILY@1300
acetaminophen 650 mg Tablet Extended Release
650 mg PO BID
ascorbic acid (vitamin C) [Vitamin C] 250 mg Tablet
250 mg PO DAILY@1300
cholecalciferol (vitamin D3) 25 mcg (1,000 unit) Tablet
25 mcg PO DAILY@1300
midodrine 5 mg Tablet
10 mg PO TID@0800,1300,1800 30 Days Qty: 90 0RF
quetiapine [Seroquel] 25 mg tablet
12.5 mg PO HS 5 Days Qty: 3 0RF
cefdinir 300 mg capsule
300 mg PO BID 5 Days Qty: 10 0RF
Referrals:
Dot Lozano MD [Family Provider] -
Activity Restrictions/Additional Instructions:
Continue current medication regimen. Return if needed
Interventions
Interventions:
*Risk Screen - Suicide Last Done: 02/17/24 08:50
*General Assessment Last Done: 02/17/24 08:48
*Neglect/Abuse Screening Last Done: 02/17/24 08:50
*ED COVID-19 Vaccine History Last Done: 02/17/24 08:48
ED-Musculoskeletal Assessment Last Done: 02/17/24 08:51
ED- Neurological Assessment Last Done: 02/17/24 08:51
ED-Skin Assessment Last Done: 02/17/24 08:52
Discharge Date and Time
Print Language: TAJIK
[2024-02-17 14:29] LABS: % Basophils 0.6 % (0-2); % Eosinophils 2.7 % (0-6); % Immature Granulocytes 0.2 % (0-0.5); % Lymphocytes 18.7 % (20.5-51.1); % Monocytes 14.9 % (1.7-9.3); % Neutrophils 62.9 % (42.2-75.2); Absolute Eosinophils 0.1 10^3/uL (0-0.7); Absolute Lymphocytes 0.9 10^3/uL (1.2-3.4); Absolute Monocytes 0.7 10^3/uL (0.1-0.6); Hematocrit 31.7 % (37.0-47.0); Hemoglobin 10.8 g/dL (12.0-16.0); Mean Corp Hgb Conc. 34.1 g/dL (33.0-37.0); Mean Corpuscular Hgb 29.3 pg (27.0-31.0); Mean Corpuscular Volume 85.9 fL (81.0-99.0); Mean Platelet Volume 9.9 fL (7.4-10.4); Nucleated Red Blood Cells % 0 %; Platelet Count 157 10^3/uL (130-400); Red Blood Cell Count 3.69 10^6/uL (4.20-5.40); Red Cell Dist. Width 15.9 % (11.5-14.5); White Blood Cell Count 4.8 10^3/uL (4.8-10.8)
[2024-02-17 14:51] LABS: ALT (SGPT) 18 U/L (0-35); AST (SGOT) 30 U/L (14-36); Albumin 3.7 g/dl (3.5-5.0); Alkaline Phosphatase 73 U/L (38-126); Blood Urea Nitrogen 23 mg/dl (7-17); Calcium 9.6 mg/dl (8.4-10.2); Carbon Dioxide 25 mmol/L (22-30); Chloride 107 mmol/L (98-107); Estimated Creatinine Clearance 50 ml/min; Glucose 91 mg/dl (70-99); Potassium 3.7 mmol/L (3.5-5.1); Sodium 141 mmol/L (135-145); Total Bilirubin 0.7 mg/dl (0.2-1.3); Total Protein 5.7 g/dl (6.3-8.2); eGFR > 60.00
[2024-02-17 14:59] LABS: Urine Albumin Negative (Neg - Trace); Urine Bilirubin Negative (Negative); Urine Character Clear (Clear); Urine Color Yellow; Urine Glucose Negative (Negative); Urine Ketone Trace (Negative); Urine Leukocyte Negative (Negative); Urine Nitrite Negative (Negative); Urine Occult Blood Negative (Negative); Urine Specific Gravity 1.005 (<1.030); Urine Urobilinogen Negative (Neg - 1+)
== END 2024-02-17 19:10 | disposition home or self-care (01) ==
LOC: EMR 08:39
PROVIDERS: Physician Assistant; EMERGENCY PHYSICIAN Student in an Organized Health Care Education/Training Program; FAMILY PHYSICIAN Family Medicine
DX: M25.551 Pain in right hip (principal); W19.XXXA Unspecified fall, initial encounter; K21.9 Gastro-esophageal reflux disease without esophagitis; I10 Essential (primary) hypertension
CPT/HCPCS: 99283; 73502; 73552; 80053; 81003; 85025

== ENCOUNTER 2024-04-01 20:03 | Emergency (ER) | payer OTHER, SELFPAY ==
[2024-04-01 20:05] VITALS: BP 145/113; BMI 20.9
[2024-04-01 20:06] VITALS: BP 145/113
--- NOTE | 2024-04-01 20:25 | ED.GENMED ---
History of Present Illness
General
Chief Complaint: Fall
Source: patient and ambulance crew
Exam Limitations: none
Time Seen by Provider: 04/01/24 20:07
Nursing documentation reviewed up to this point in time: agreed with
History of Present Illness
History of Present Illness:
84-year-old female presents emergency room due to a fall. She recalls some of the fall. She is unclear if she passed out.
Past History
Past History
ED Past Medical History: Arrthythmia, Asthma, GERD, HTN, Hypercholesterolemia and Other (Migraines, diverticulitis)
ED Past Surgical History: Bowel resection, Cardiac (Mitral valve replacement), Cholecystectomy, Gynecological (oophrectomy), Orthopedic (Right knee replacement, revision, right hip fracture repair) and Other (Eye surgery)
Social History
Tobacco: 2nd hand smoke exposure
Alcohol: None
Drug: None
Living: assisted living
Employment: Retired
Review of Systems
Review of Systems
Allergies reviewed?: Yes
All Other Systems: Not applicable
Constitutional: Reports no symptoms
EENT: Reports no symptoms
Respiratory: Reports no symptoms
Cardiac: Reports syncope
ABD/GI: Reports no symptoms
: Reports no symptoms
Musculoskeletal: Reports no symptoms
Skin: Reports no symptoms
Neurological: Reports no symptoms
Endocrine: Reports no symptoms
Hematologic/Lymphatic: Reports no symptoms
Psychiatric: Reports no symptoms
Phy Exam
Physical Exam
Physical Exam:
Physical Exam
General: no apparent distress, not acutely ill
Neck: supple. no meningeal signs. normal posterior pharynx
Heart: s1/s2 regular rate and rhythm, no murmur. equal radial
pulses.
HEENT: Pupils equal round reactive to light, EOMI, hematoma right scalp
Lungs: no acute respiratory distress. clear bilaterally
Abdomen: normal bowel sounds. not tender. no CVAT
Neuro: alert and oriented, with poor recollection of recent events. no focal neurological deficits cranial nerves II through XII intact
Skin: no rash
Psychiatric: well kept. interactive and cooperative
Extremities: no edema. no calf tenderness. negative homans. good distal pulses
Course
Orders/Labs/Results
Orders:
Orders
04/01/24 20:16
IV Insert/Care/Rem.- Treatment PRN
04/01/24 20:17
CT Head W/o Iv Contrast Urgent
Comment:
Reason For Exam: fall, hit head, on xarelto
04/01/24 20:20
Type+Screen Urgent
Complete Blood Count/With Diff Urgent
Comprehensive Metabolic Panel Urgent
04/01/24 20:21
CT Cervical Spine W/o Iv Contr Urgent
Comment:
Reason For Exam: fall
04/01/24 20:25
Electrocardiogram (*1) Stat
Reason for Study: Syncope
EKG- Treatment ONCE
04/01/24 20:45
Hip, Right 2-3 Views [CR Hip - RT w/wo Pel 2-3 Vw*] Urgent
Comment:
Reason For Exam: right hip pain, fall
Include a pelvis x-ray?: Yes
04/01/24 21:25
Troponin I Urgent
Abnormal Lab Results
04/01/24
20:20
Hct 36.0 L %
(37.0-47.0)
Abs Immat Gran (auto) 0.1 H 10^3/uL
(0-0.05)
Absolute Neuts (auto) 8.2 H 10^3/uL
(1.4-6.5)
Absolute Lymphs (auto) 0.7 L 10^3/uL
(1.2-3.4)
Absolute Monos (auto) 0.9 H 10^3/uL
(0.1-0.6)
Immature Gran % 0.6 H %
(0-0.5)
Neutrophils % 82.2 H %
(42.2-75.2)
Lymphocytes % 7.2 L %
(20.5-51.1)
Sodium 147 H mmol/L
(135-145)
BUN 31 H mg/dl
(7-17)
Glucose 108 H mg/dl
(70-99)
04/01/24 20:20
04/01/24 20:20
Vital Signs
Initial and Last Documented VS:
Initial Vital Signs
Temp Pulse Resp BP Pulse Ox
98 F 92 13 145/113 98
04/01/24 20:05 04/01/24 20:05 04/01/24 20:05 04/01/24 20:05 04/01/24 20:05
Last Documented Vital Signs
Temp Pulse Resp BP Pulse Ox
98 F 99 16 141/85 99
04/01/24 20:05 04/01/24 23:01 04/01/24 23:01 04/01/24 23:01 04/01/24 23:01
MDM/Problems Addressed
Differential Diagnosis Includes:
Intracranial hemorrhage, cervical spine fracture, pelvis fracture
MDM/Problems Addressed:
84-year-old female with type II dens fracture, no intracranial hemorrhage. Resulted from fall. No focal neurologic deficits. Patient is disoriented to situation. Discussed with Dr. Lafleur, trauma surgeon at [facility], who accepts patient
in transfer. C-collar placed on patient.
Chronic conditions affecting care: Arrhythmia
Acute Exacerbation and/or Progression of Chronic Illness: Arrhythmia
*Radiology
Radiology exam reviewed: radiology read reviewed (CT head no acute findings, right hip x-ray no acute findings, CT spine shows type II dens fracture)
*Pulse Oximetry
Patient hypoxic: no
*EKG
Interpreted by ED Provider?: Yes
EKG Intrepretation Date: 04/01/24
EKG Intrepretation Time: 20:33
Interpretation: abnormal
Comparison EKG: no changes
Heart Rate: 94
Rate: normal
Rhythm: sinus and sinus arrhythmia
[place]: normal axis
Interval: normal interval
QRS Pattern: normal QRS
Ischemia: no ischemia
*Post Form Remover Interpretation
Rate: normal
Interpretation: normal
Heart Rate: 94
Rhythm: sinus
*Critical Care Note
Total Time (30-74mins, 75-104mins- exclusive of procedures): 45
comment:
Critical care statement: A total of 45 minutes of critical care time was provided for this patient. This includes management of unstable vital signs, evaluation of the patient at bedside, reviewing the patient's pertinent medical records, discussion
with consultants, review of old EKGs and review of pertinent medical records. This time with separate from time utilized to perform the aforementioned documented procedures
Patient Management
Social determinants of health affecting care: Living situation
Discussion with other providers: Surgical Rn (Trauma surgeon and neurosurgeon)
Escalation/DeEscalation of care consider admission/obs:
Transfer to trauma center indicated
ED Attending Note
-
Portions of this chart may have been created with voice recognition software.� Occasional wrong word or��sound alike� substitutions may have occurred due to the inherent limitations of voice recognition software.
Discharge Plan
Departure
Patient Disposition: Acute Care Hospital
Date of Disposition: 04/01/24
Time of Disposition: 23:03
Patient with high blood pressure during this ER visit?: Yes
Condition: Fair
Discharge Problem:
Type II fracture of odontoid process
Prescriptions:
No Action
atorvastatin 10 MG tablet
10 mg PO DAILY@1300
metoprolol succinate 25 mg tablet extended release 24 hr
25 mg PO HS
nitrofurantoin monohyd/m-cryst 100 mg capsule
100 mg PO BID
Xarelto 15 mg tablet
15 mg PO DAILY@1300
acetaminophen 650 mg Tablet Extended Release
650 mg PO BID
ascorbic acid (vitamin C) [Vitamin C] 250 mg Tablet
250 mg PO DAILY@1300
cholecalciferol (vitamin D3) 25 mcg (1,000 unit) Tablet
25 mcg PO DAILY@1300
midodrine 5 mg Tablet
10 mg PO TID@0800,1300,1800 30 Days Qty: 90 0RF
quetiapine [Seroquel] 25 mg tablet
12.5 mg PO HS 5 Days Qty: 3 0RF
cefdinir 300 mg capsule
300 mg PO BID 5 Days Qty: 10 0RF
Referrals:
Dot Lozano MD [Family Provider] -
Hospital Transfer
Other hospital: [facility]
I certify that the patient requires transfer: Yes
Discussed case with accepting physician: Dr. Lafleur
Reason for transfer: higher level of care and specialties available
Interventions
Interventions:
*Risk Screen - Suicide Last Done: 04/01/24 20:09
*General Assessment Last Done: 04/01/24 20:09
*Neglect/Abuse Screening Last Done: 04/01/24 20:09
*ED COVID-19 Vaccine History Last Done: 04/01/24 20:09
ED-Musculoskeletal Assessment Last Done: 04/01/24 20:30
ED- Neurological Assessment Last Done: 04/01/24 20:30
ED-Skin Assessment Last Done: 04/01/24 20:30
Discharge Date and Time
Print Language: [id number]
[2024-04-01 20:29] LABS: % Basophils 0.3 % (0-2); % Eosinophils 0.8 % (0-6); % Immature Granulocytes 0.6 % (0-0.5); % Lymphocytes 7.2 % (20.5-51.1); % Monocytes 8.9 % (1.7-9.3); % Neutrophils 82.2 % (42.2-75.2); Absolute Eosinophils 0.1 10^3/uL (0-0.7); Absolute Immature Granulocytes 0.1 10^3/uL (0-0.05); Absolute Lymphocytes 0.7 10^3/uL (1.2-3.4); Absolute Monocytes 0.9 10^3/uL (0.1-0.6); Absolute Neutrophils 8.2 10^3/uL (1.4-6.5); Mean Corp Hgb Conc. 33.3 g/dL (33.0-37.0); Mean Corpuscular Hgb 28.2 pg (27.0-31.0); Mean Corpuscular Volume 84.7 fL (81.0-99.0); Mean Platelet Volume 9.6 fL (7.4-10.4); Nucleated Red Blood Cells % 0 %; Platelet Count 159 10^3/uL (130-400); Red Blood Cell Count 4.25 10^6/uL (4.20-5.40); Red Cell Dist. Width 14.2 % (11.5-14.5)
[2024-04-01 20:47] LABS: ALT (SGPT) 22 U/L (0-35); AST (SGOT) 30 U/L (14-36); Albumin 4.5 g/dl (3.5-5.0); Alkaline Phosphatase 87 U/L (38-126); Blood Urea Nitrogen 31 mg/dl (7-17); Calcium 9.9 mg/dl (8.4-10.2); Carbon Dioxide 28 mmol/L (22-30); Chloride 106 mmol/L (98-107); Estimated Creatinine Clearance 42 ml/min; Glucose 108 mg/dl (70-99); Potassium 4.2 mmol/L (3.5-5.1); Sodium 147 mmol/L (135-145); Total Bilirubin 0.5 mg/dl (0.2-1.3); Total Protein 6.8 g/dl (6.3-8.2); eGFR > 60.00
[2024-04-01 21:00] VITALS: BP 118/90
[2024-04-01 22:02] LABS: Troponin I < 0.012 ng/ml
[2024-04-01 22:37] VITALS: BP 121/93
[2024-04-01 23:01] VITALS: BP 141/85
[2024-04-02] VITALS: BP 127/63
== END 2024-04-02 00:20 | disposition short-term general hospital (02) ==
LOC: EMR 20:03
PROVIDERS: EMERGENCY PHYSICIAN Emergency Medicine; FAMILY PHYSICIAN Family Medicine
DX: S12.110A Anterior displaced Type II dens fracture, initial encounter for closed fracture (principal); W19.XXXA Unspecified fall, initial encounter; J45.909 Unspecified asthma, uncomplicated; K21.9 Gastro-esophageal reflux disease without esophagitis; I10 Essential (primary) hypertension; E78.00 Pure hypercholesterolemia, unspecified; Z77.22 Contact with and (suspected) exposure to environmental tobacco smoke (acute) (chronic); Z79.01 Long term (current) use of anticoagulants; Z90.49 Acquired absence of other specified parts of digestive tract; Z95.2 Presence of prosthetic heart valve; Z96.651 Presence of right artificial knee joint
CPT/HCPCS: 99284; 70450; 72125; 73502; 80053; 84484; 85025; 86850; 86900; 86901; 93005

== ENCOUNTER → 2024-06-08 12:15 | Outpatient (REF) | payer OTHER, SELFPAY | LOC: HWRAD 12:15 | PROVIDERS: ATTENDING PHYSICIAN Physician Assistant Medical; FAMILY PHYSICIAN Family Medicine; REFERRING PHYSICIAN Neurological Surgery | DX: S12.100A Unspecified displaced fracture of second cervical vertebra, initial encounter for closed fracture (principal) | CPT/HCPCS: 72125 ==